=== PATIENT | female | born 1975 | race Two or more races ===

== ENCOUNTER 2017-04-25 18:52 | Inpatient (IN) | payer MEDICAID ==
[~2017-04-25] VITALS: Ht 160 cm; Wt 94.9 kg
[~2017-04-25 18:52] MED LIST: ALBUPOW26 XX; ARIP5TAB13 PO; CAR3125T PO; DOCU-94 PO; ESCI10TA PO; FURO40TA PO; GABA-497 PO; INSLANTI SC; INSLISPI SC; LEVO150T68 PO; LIS5T PO; LORA-205 PO; MET10LQ PO; NOR7.5T PO; OMEP20CA74 PO; POTA8TAB2 PO; PRAV20TA3 PO; TOPI50TA32 PO; WARF6TAB20 PO
[2017-04-25 19:42] LABS: Basophils # (auto) 0 uL; Basophils % (auto) 0.3 % (0.0-2.0); CONDITION Y; Eosinophils # (auto) 0.2 uL; Eosinophils % (auto) 3.3 % (0.0-7.0); Hematocrit 30.6 % (36.0-46.0); Hemoglobin 10.1 g/dL (12.2-16.2); Lymphocytes % (auto) 37.1 % (10.0-50.0); Mean Corpuscular Volume 93.7 fL (80.0-100.0); Mean Platelet Volume 9.8 fL (7.4-10.4); Monocytes # (auto) 0.4 uL; Neutrophils # (auto) 2.8 uL; Neutrophils % (auto) 52.3 % (37.0-80.0); Platelet Count (auto) 221 10^3/uL (140-450); Red Cell Distribution Width 14.5 % (11.6-16.0); White Blood Cell 5.4 10^3/uL (4.4-10.8)
[2017-04-25 20:06] LABS: Albumin 3.1 g/dL (3.4-5.0); Calcium 7.9 mg/dL (8.5-10.1); Magnesium 2.5 mg/dL (1.6-2.6); Potassium 3.9 mmol/L (3.5-5.1)
[2017-04-25 20:09] LABS: BUN/Creatinine Ratio 21.2
[2017-04-25 20:11] LABS: Bilirubin, Total 0.4 mg/dL (0.2-1.0); Total Protein 7.2 g/dL (6.4-8.2)
[2017-04-25] MEDS ORDERED: SODIUM CHLORIDE 0.9% 1,000 ML IV ONE (20:23)
[2017-04-25] MEDS ORDERED: ONDANSETRON HCL 4 MG/2 ML VIAL IV ONE (20:30)
[2017-04-25] MEDS ORDERED: CLINDAMYCIN 900MG IV 50 ML IV ONE (20:30)
[2017-04-25] MEDS ORDERED: ASPirin 81 mg TAB PO ONE (20:30)
[2017-04-25] MEDS ORDERED: LORazepam 2MG/ML-1ML VIAL IV ONE (20:30)
[2017-04-25 20:59] LABS: INR 0.95 (0.9-1.15); Prothrombin Time 10.4 sec (9.37-12.3)
[2017-04-25 21:15] LABS: B-Type Natriuretic Peptide 703.49 pg/mL (0-100)
[2017-04-25 21:19] LABS: Temperature: 23.9 C (20.0-25.0)
[2017-04-25] MEDS ORDERED: VANCOMYCIN 1GM/250ML D5W 250 ML IV ONE (21:45)
[2017-04-25] MEDS ORDERED: NITROGLYCERIN 0.2MG/HR TOPICAL PATCH TD ONE (22:00)
[2017-04-25] MEDS ORDERED: NITROGLYCERIN 0.4 MG SL TAB SL PRN (23:45)
[2017-04-25] MEDS ORDERED: MORPHINE SULF INJ 2 MG/ML SYRINGE 1ML IV PRN (23:45)
[2017-04-25] MEDS ORDERED: ACETAMINOPHEN 325 MG TAB PO PRN (23:45)
[2017-04-25] MEDS ORDERED: TOPIRAMATE 25 MG TAB PO ONE (23:45)
[2017-04-26] VITALS (7 sets, daily range): BP systolic 93–138; BP diastolic 52–75
[2017-04-26] MEDS: ACCU-CHEK COMFORT CURVE STRIP VI SCH ×5 (00:48→23:43)
[2017-04-26] MEDS: InsuLIN REG 1unit/0.01ml Soln (100units/ml) SC SCH ×5 (00:53→23:43)
[2017-04-26] MEDS: TEMAZEPAM 15 MG CAP PO PRN (01:48)
[2017-04-26] MEDS: HYDROcodone-ACET 5/325MG TAB PO PRN ×3 (02:03→17:35)
[2017-04-26] MEDS ORDERED: COLC1TAB3 PO (04:11)
[2017-04-26] MEDS ORDERED: CLOP75TA41 PO (04:11)
[2017-04-26] MEDS ORDERED: SILD50TA42 PO (04:11)
[2017-04-26] MEDS ORDERED: METO5TAB56 PO (04:11)
[2017-04-26] MEDS ORDERED: ALL100T PO (04:11)
[2017-04-26] MEDS ORDERED: KEP500T PO (04:11)
[2017-04-26] MEDS ORDERED: FLUT100M IN (04:11)
[2017-04-26] MEDS ORDERED: TRAZ150T79 PO (04:11)
[2017-04-26] MEDS ORDERED: ATOR20TA PO (04:11)
[2017-04-26 05:59] LABS: Basophils # (auto) 0 uL; Basophils % (auto) 0.5 % (0.0-2.0); CONDITION Y; Eosinophils # (auto) 0.3 uL; Eosinophils % (auto) 4.6 % (0.0-7.0); Hematocrit 28.9 % (36.0-46.0); Hemoglobin 9.5 g/dL (12.2-16.2); Lymphocytes # (auto) 2.3 uL; Lymphocytes % (auto) 39.4 % (10.0-50.0); Mean Corpuscular Hemoglobin 31.1 pg (28.0-32.0); Mean Corpuscular Volume 94.3 fL (80.0-100.0); Mean Platelet Volume 9.5 fL (7.4-10.4); Monocytes # (auto) 0.5 uL; Monocytes % (auto) 9.4 % (0.0-12.0); Neutrophils # (auto) 2.7 uL; Neutrophils % (auto) 46.1 % (37.0-80.0); Platelet Count (auto) 207 10^3/uL (140-450); Red Cell Distribution Width 14.6 % (11.6-16.0); White Blood Cell 5.8 10^3/uL (4.4-10.8)
[2017-04-26 06:08] LABS: Albumin 2.8 g/dL (3.4-5.0); Calcium 8.1 mg/dL (8.5-10.1); Potassium 3.2 mmol/L (3.5-5.1)
[2017-04-26 06:11] LABS: BUN/Creatinine Ratio 16.4
[2017-04-26 06:13] LABS: Bilirubin, Total 0.4 mg/dL (0.2-1.0); Total Protein 6.5 g/dL (6.4-8.2)
[2017-04-26] MEDS: LEVOTHYROXINE SODIUM 50 MCG TAB PO SCH (06:25)
[2017-04-26] MEDS: GABAPENTIN 300 MG CAP PO SCH ×3 (06:26→22:13)
[2017-04-26] MEDS: DEXTROSE (50%) 50ML SYRG IV PRN (06:35)
[2017-04-26] MEDS: FUROSEMIDE 40 MG TAB PO SCH (09:13)
[2017-04-26] MEDS: CARVEDILOL 3.125 MG TAB PO SCH ×2 (09:13→22:00)
[2017-04-26] MEDS: ASPirin 81 mg TAB PO SCH (09:13)
[2017-04-26] MEDS: ENOXAPARIN SOD 40 MG/0.4 ML SYRINGE SC SCH (09:14)
[2017-04-26] MEDS: LISINOPRIL 5 MG TAB PO SCH (09:14)
[2017-04-26] MEDS: TOPIRAMATE 25 MG TAB PO SCH ×2 (09:14→22:13)
[2017-04-26] MEDS: FAMOTIDINE 20 MG TAB PO SCH ×2 (09:14→22:13)
[2017-04-26] MEDS: VANCOMYCIN 1,250 MG in D5W 5% 250 ML IV SCH ×2 (09:30→21:26)
[2017-04-26] MEDS ORDERED: VANCOMYCIN PER PHARMACY 0 MG IV SCH (10:00)
[2017-04-26] MEDS ORDERED: POTASSIUM CHL 20 Meq TABLET PO ONE (11:45)
[2017-04-26] MEDS ORDERED: LIDOCAINE W/ EPINEPHRINE 2% INJ 20ML VIAL IJ ONE (14:00)
[2017-04-26] MEDS: PRAVASTATIN SODIUM 20 MG TAB PO SCH (22:13)
[2017-04-27] MEDS: HYDROcodone-ACET 5/325MG TAB PO PRN ×4 (04:50→21:31)
[2017-04-27 05:00] VITALS: BP 114/63
[2017-04-27] MEDS: InsuLIN REG 1unit/0.01ml Soln (100units/ml) SC SCH ×3 (06:00→17:27)
[2017-04-27 06:21] LABS: Basophils # (auto) 0 uL; Basophils % (auto) 0.6 % (0.0-2.0); CONDITION Y; Eosinophils # (auto) 0.3 uL; Eosinophils % (auto) 6.2 % (0.0-7.0); Hemoglobin 10.1 g/dL (12.2-16.2); Lymphocytes % (auto) 39.8 % (10.0-50.0); Mean Corpuscular Hemoglobin 30.9 pg (28.0-32.0); Mean Corpuscular Hgb Conc. 32.7 g/dL (32.0-36.0); Mean Corpuscular Volume 94.7 fL (80.0-100.0); Mean Platelet Volume 9.5 fL (7.4-10.4); Monocytes # (auto) 0.4 uL; Monocytes % (auto) 7.8 % (0.0-12.0); Neutrophils # (auto) 2.2 uL; Neutrophils % (auto) 45.6 % (37.0-80.0); Platelet Count (auto) 197 10^3/uL (140-450); Red Cell Distribution Width 14.4 % (11.6-16.0); White Blood Cell 4.9 10^3/uL (4.4-10.8)
[2017-04-27] MEDS: ACCU-CHEK COMFORT CURVE STRIP VI SCH ×4 (06:24→23:58)
[2017-04-27] MEDS: GABAPENTIN 300 MG CAP PO SCH ×3 (06:24→21:31)
[2017-04-27] MEDS: LEVOTHYROXINE SODIUM 50 MCG TAB PO SCH (06:25)
[2017-04-27 06:28] LABS: INR 0.95 (0.9-1.15); Prothrombin Time 10.4 sec (9.37-12.3)
[2017-04-27 06:33] LABS: BUN/Creatinine Ratio 17.3; Calcium 8.5 mg/dL (8.5-10.1); Magnesium 2.5 mg/dL (1.6-2.6); Phosphorus 3.3 mg/dL (2.5-4.90); Potassium 3.8 mmol/L (3.5-5.1)
[2017-04-27 08:00] VITALS: BP 140/59
[2017-04-27] MEDS: VANCOMYCIN 1,250 MG in D5W 5% 250 ML IV SCH ×2 (09:40→21:00)
[2017-04-27] MEDS: FAMOTIDINE 20 MG TAB PO SCH ×2 (09:41→21:31)
[2017-04-27] MEDS: LISINOPRIL 5 MG TAB PO SCH (09:41)
[2017-04-27] MEDS: CARVEDILOL 3.125 MG TAB PO SCH ×2 (09:41→21:36)
[2017-04-27] MEDS: TOPIRAMATE 25 MG TAB PO SCH ×2 (09:41→21:31)
[2017-04-27] MEDS: FUROSEMIDE 40 MG TAB PO SCH (09:41)
[2017-04-27] MEDS: ASPirin 81 mg TAB PO SCH (09:41)
[2017-04-27] MEDS: ENOXAPARIN SOD 40 MG/0.4 ML SYRINGE SC SCH (09:42)
[2017-04-27 09:46] VITALS: BP 110/56
[2017-04-27] MEDS ORDERED: MORPHINE SULFATE 4 MG/ML SYRG IV ONE (11:30)
[2017-04-27 13:00] VITALS: BP 154/74
[2017-04-27] MEDS ORDERED: WARFARIN SODIUM 10 MG TAB PO ONE (17:00)
[2017-04-27 17:42] VITALS: BP 116/72
[2017-04-27] MEDS: PRAVASTATIN SODIUM 20 MG TAB PO SCH (21:31)
[2017-04-27 21:49] VITALS: BP 109/59
[2017-04-28] MEDS: InsuLIN REG 1unit/0.01ml Soln (100units/ml) SC SCH ×5 (00:09→20:00)
[2017-04-28] MEDS ORDERED: KETOROLAC TROMETH 30 MG/ML 1ML VIAL IV PRN (00:30)
[2017-04-28] MEDS: KETOROLAC TROMETH 30 MG/ML 1ML VIAL IV PRN ×4 (00:52→20:55)
[2017-04-28] MEDS ORDERED: KETOROLAC TROMETH 30 MG/ML 1ML VIAL ONE (00:52)
[2017-04-28 04:38] VITALS: BP 138/83
[2017-04-28] MEDS: ACCU-CHEK COMFORT CURVE STRIP VI SCH ×4 (05:44→20:00)
[2017-04-28] MEDS: GABAPENTIN 300 MG CAP PO SCH ×3 (06:24→20:55)
[2017-04-28 06:25] LABS: Basophils # (auto) 0 uL; Basophils % (auto) 0.5 % (0.0-2.0); CONDITION Y; Eosinophils # (auto) 0.3 uL; Eosinophils % (auto) 4.4 % (0.0-7.0); Hematocrit 30.5 % (36.0-46.0); Lymphocytes # (auto) 1.9 uL; Lymphocytes % (auto) 29.9 % (10.0-50.0); Mean Corpuscular Hgb Conc. 32.9 g/dL (32.0-36.0); Mean Corpuscular Volume 94.3 fL (80.0-100.0); Monocytes # (auto) 0.4 uL; Neutrophils # (auto) 3.7 uL; Neutrophils % (auto) 58.2 % (37.0-80.0); Platelet Count (auto) 207 10^3/uL (140-450); Red Cell Distribution Width 14.7 % (11.6-16.0); White Blood Cell 6.4 10^3/uL (4.4-10.8)
[2017-04-28] MEDS: LEVOTHYROXINE SODIUM 50 MCG TAB PO SCH (06:25)
[2017-04-28 06:32] LABS: INR 0.97 (0.9-1.15); Partial Thromboplastin Time 28.2 sec (22.64-33.71); Prothrombin Time 10.6 sec (9.37-12.3)
[2017-04-28 07:06] LABS: BUN/Creatinine Ratio 15.9; Calcium 8.7 mg/dL (8.5-10.1); Magnesium 2.5 mg/dL (1.6-2.6); Potassium 3.9 mmol/L (3.5-5.1)
[2017-04-28 08:49] VITALS: BP 132/80
[2017-04-28] MEDS: ENOXAPARIN SOD 40 MG/0.4 ML SYRINGE SC SCH (09:36)
[2017-04-28] MEDS: TOPIRAMATE 25 MG TAB PO SCH ×2 (09:37→20:56)
[2017-04-28] MEDS: ASPirin 81 mg TAB PO SCH (09:37)
[2017-04-28] MEDS: LISINOPRIL 5 MG TAB PO SCH (09:38)
[2017-04-28] MEDS: FUROSEMIDE 40 MG TAB PO SCH (09:38)
[2017-04-28] MEDS: FAMOTIDINE 20 MG TAB PO SCH ×2 (09:38→20:56)
[2017-04-28] MEDS: CARVEDILOL 3.125 MG TAB PO SCH ×2 (09:38→20:57)
[2017-04-28] MEDS: DEXTROSE (50%) 50ML SYRG IV PRN (11:50)
[2017-04-28 13:00] VITALS: BP 126/73
[2017-04-28] MEDS: HYDROcodone-ACET 5/325MG TAB PO PRN (16:05)
[2017-04-28 16:31] VITALS: BP 105/55
[2017-04-28] MEDS ORDERED: WARFARIN SODIUM 10 MG TAB PO ONE (17:00)
[2017-04-28] MEDS ORDERED: InsuLIN REG 1unit/0.01ml Soln (100units/ml) IV ONE (18:45)
[2017-04-28] MEDS ORDERED: DEXTROSE (50%) 50ML SYRG IV PRN (18:45)
[2017-04-28] MEDS: PRAVASTATIN SODIUM 20 MG TAB PO SCH (20:56)
[2017-04-28 21:17] VITALS: BP 138/75
[2017-04-29] MEDS: ACCU-CHEK COMFORT CURVE STRIP VI SCH ×6 (00:14→20:12)
[2017-04-29] MEDS: TEMAZEPAM 15 MG CAP PO PRN (00:37)
[2017-04-29] MEDS: ONDANSETRON HCL 4 MG/2 ML VIAL IV PRN ×5 (00:37→21:51)
[2017-04-29] MEDS: InsuLIN REG 1unit/0.01ml Soln (100units/ml) SC SCH ×6 (04:30→20:09)
[2017-04-29] MEDS: DEXTROSE (50%) 50ML SYRG IV PRN (04:30)
[2017-04-29 05:05] VITALS: BP 130/66
[2017-04-29] MEDS ORDERED: DEXTROSE (50%) 50ML SYRG IV PRN (06:00)
[2017-04-29 06:27] LABS: INR 1.17 (0.9-1.15); Partial Thromboplastin Time 24.5 sec (22.64-33.71); Prothrombin Time 12.8 sec (9.37-12.3)
[2017-04-29] MEDS: KETOROLAC TROMETH 30 MG/ML 1ML VIAL IV PRN ×3 (06:27→18:35)
[2017-04-29] MEDS: GABAPENTIN 300 MG CAP PO SCH ×3 (06:27→21:43)
[2017-04-29] MEDS: LEVOTHYROXINE SODIUM 50 MCG TAB PO SCH (06:54)
[2017-04-29 08:00] VITALS: BP 100/59
[2017-04-29] MEDS: LISINOPRIL 5 MG TAB PO SCH ×2 (10:00→12:56)
[2017-04-29] MEDS: CARVEDILOL 3.125 MG TAB PO SCH ×3 (10:00→21:44)
[2017-04-29] MEDS: ENOXAPARIN SOD 40 MG/0.4 ML SYRINGE SC SCH (10:02)
[2017-04-29] MEDS: FAMOTIDINE 20 MG TAB PO SCH ×2 (10:02→21:43)
[2017-04-29] MEDS: FUROSEMIDE 40 MG TAB PO SCH (10:02)
[2017-04-29] MEDS: TOPIRAMATE 25 MG TAB PO SCH ×2 (10:03→21:43)
[2017-04-29] MEDS: ASPirin 81 mg TAB PO SCH (10:03)
[2017-04-29 12:00] VITALS: BP 154/78
[2017-04-29 16:00] VITALS: BP 121/65
[2017-04-29] MEDS ORDERED: WARFARIN SODIUM 2.5 MG TAB PO ONE (17:00)
[2017-04-29 20:00] VITALS: BP 113/50
[2017-04-29] MEDS: HYDROcodone-ACET 10/325MG TAB PO PRN (20:12)
[2017-04-29] MEDS: PRAVASTATIN SODIUM 20 MG TAB PO SCH (21:43)
[2017-04-29 21:49] VITALS: BP 113/50
[2017-04-29] MEDS: LACTULOSE 20Gm/30ML SOLN PO SCH (21:56)
[2017-04-30] MEDS: KETOROLAC TROMETH 30 MG/ML 1ML VIAL IV PRN ×4 (00:40→20:50)
[2017-04-30] MEDS: InsuLIN REG 1unit/0.01ml Soln (100units/ml) SC SCH ×7 (00:41→23:39)
[2017-04-30] MEDS: HYDROcodone-ACET 10/325MG TAB PO PRN ×2 (02:45→15:55)
[2017-04-30] MEDS: ACCU-CHEK COMFORT CURVE STRIP VI SCH ×7 (03:39→23:37)
[2017-04-30 04:48] VITALS: BP 117/68
[2017-04-30 06:25] LABS: INR 2.03 (0.9-1.15); Partial Thromboplastin Time 33.9 sec (22.64-33.71)
[2017-04-30 06:30] LABS: Prothrombin Time 22.3 sec (9.37-12.3)
[2017-04-30 06:36] LABS: Albumin 2.9 g/dL (3.4-5.0); BUN/Creatinine Ratio 19.1; Calcium 8.6 mg/dL (8.5-10.1); Potassium 3.9 mmol/L (3.5-5.1)
[2017-04-30 06:38] LABS: Bilirubin, Total 0.3 mg/dL (0.2-1.0); Total Protein 6.7 g/dL (6.4-8.2)
[2017-04-30] MEDS: LEVOTHYROXINE SODIUM 50 MCG TAB PO SCH (06:39)
[2017-04-30] MEDS: GABAPENTIN 300 MG CAP PO SCH ×3 (06:40→21:12)
[2017-04-30] MEDS: LACTULOSE 20Gm/30ML SOLN PO SCH ×3 (06:41→21:06)
[2017-04-30 08:00] VITALS: BP 106/64
[2017-04-30] MEDS ORDERED: GIVE UN DILUTED IV ONE (09:00)
[2017-04-30] MEDS ORDERED: ADENOSINE IV ONE (09:00)
[2017-04-30] MEDS: ENOXAPARIN SOD 40 MG/0.4 ML SYRINGE SC SCH (09:11)
[2017-04-30] MEDS: ASPirin 81 mg TAB PO SCH (09:12)
[2017-04-30] MEDS: TOPIRAMATE 25 MG TAB PO SCH ×2 (09:12→21:13)
[2017-04-30] MEDS: FAMOTIDINE 20 MG TAB PO SCH ×2 (09:13→21:12)
[2017-04-30] MEDS: LISINOPRIL 5 MG TAB PO SCH (09:13)
[2017-04-30] MEDS: FUROSEMIDE 40 MG TAB PO SCH (09:14)
[2017-04-30] MEDS: CARVEDILOL 3.125 MG TAB PO SCH ×2 (09:14→21:14)
[2017-04-30 09:16] VITALS: BP 106/64
[2017-04-30] MEDS ORDERED: ADENOSINE 80 MG in GIVE UN-DILUTED 0 ML IV ONE ×2 (09:30→10:15)
[2017-04-30] MEDS ORDERED: ALBUTEROL SULF 2.5 MG/0.5ML(0.5%) NEB SOLN NEB ONE (10:15)
[2017-04-30] MEDS ORDERED: IPRATROPIUM BROM 0.5 MG/2.5ML INH SOL NEB ONE (10:15)
[2017-04-30] MEDS: ONDANSETRON HCL 4 MG/2 ML VIAL IV PRN ×2 (11:44→20:50)
[2017-04-30 13:00] VITALS: BP 110/85
[2017-04-30] MEDS ORDERED: WARFARIN SODIUM 2.5 MG TAB PO ONE (17:00)
[2017-04-30 17:22] VITALS: BP 137/74
[2017-04-30 20:00] VITALS: BP 113/57
[2017-04-30] MEDS: PRAVASTATIN SODIUM 20 MG TAB PO SCH (21:19)
[2017-04-30] MEDS ORDERED: VANCOMYCIN 1,250 MG in D5W 5% 250 ML IV SCH (22:00)
[2017-05-01] VITALS (8 sets, daily range): BP systolic 125–149; BP diastolic 68–99
[2017-05-01] MEDS: HYDROcodone-ACET 10/325MG TAB PO PRN ×5 (01:52→20:22)
[2017-05-01] MEDS: ONDANSETRON HCL 4 MG/2 ML VIAL IV PRN (02:07)
[2017-05-01] MEDS: InsuLIN REG 1unit/0.01ml Soln (100units/ml) SC SCH ×6 (04:00→23:25)
[2017-05-01] MEDS: ACCU-CHEK COMFORT CURVE STRIP VI SCH ×6 (04:25→23:25)
[2017-05-01] MEDS: LEVOTHYROXINE SODIUM 50 MCG TAB PO SCH (06:21)
[2017-05-01] MEDS: GABAPENTIN 300 MG CAP PO SCH ×3 (06:21→21:54)
[2017-05-01] MEDS: LACTULOSE 20Gm/30ML SOLN PO SCH ×3 (06:21→21:58)
[2017-05-01 06:53] LABS: INR 2.33 (0.9-1.15); Partial Thromboplastin Time 36.5 sec (22.64-33.71)
[2017-05-01 06:57] LABS: Prothrombin Time 25.6 sec (9.37-12.3)
[2017-05-01] MEDS: ENOXAPARIN SOD 40 MG/0.4 ML SYRINGE SC SCH (10:10)
[2017-05-01] MEDS: FAMOTIDINE 20 MG TAB PO SCH ×2 (10:10→21:54)
[2017-05-01] MEDS: ASPirin 81 mg TAB PO SCH (10:10)
[2017-05-01] MEDS: TOPIRAMATE 25 MG TAB PO SCH ×2 (10:11→21:56)
[2017-05-01] MEDS: CARVEDILOL 3.125 MG TAB PO SCH ×2 (10:11→21:55)
[2017-05-01] MEDS: LISINOPRIL 5 MG TAB PO SCH (10:12)
[2017-05-01] MEDS: FUROSEMIDE 40 MG TAB PO SCH (10:12)
[2017-05-01] MEDS ORDERED: WARFARIN SODIUM 2.5 MG TAB PO ONE (17:00)
[2017-05-01] MEDS: TEMAZEPAM 15 MG CAP PO PRN (21:54)
[2017-05-01] MEDS: PRAVASTATIN SODIUM 20 MG TAB PO SCH (21:57)
[2017-05-02] MEDS: InsuLIN REG 1unit/0.01ml Soln (100units/ml) SC SCH ×4 (03:49→18:53)
[2017-05-02] MEDS: ACCU-CHEK COMFORT CURVE STRIP VI SCH ×4 (03:49→17:34)
[2017-05-02 05:00] VITALS: BP 137/77
[2017-05-02] MEDS: LACTULOSE 20Gm/30ML SOLN PO SCH ×2 (06:23→13:11)
[2017-05-02] MEDS: LEVOTHYROXINE SODIUM 50 MCG TAB PO SCH (06:24)
[2017-05-02] MEDS: GABAPENTIN 300 MG CAP PO SCH ×2 (06:24→13:10)
[2017-05-02 07:34] LABS: INR 1.77 (0.9-1.15); Partial Thromboplastin Time 36.8 sec (22.64-33.71)
[2017-05-02 07:46] LABS: Prothrombin Time 19.4 sec (9.37-12.3)
[2017-05-02 08:00] VITALS: BP 116/79
[2017-05-02] MEDS: HYDROcodone-ACET 10/325MG TAB PO PRN ×3 (08:50→17:36)
[2017-05-02 09:05] VITALS: BP 116/79
[2017-05-02 09:43] LABS: INR 1.72 (0.9-1.15); Partial Thromboplastin Time 36.5 sec (22.64-33.71)
[2017-05-02 09:46] LABS: Prothrombin Time 18.8 sec (9.37-12.3)
[2017-05-02 09:54] LABS: Calcium 8.8 mg/dL (8.5-10.1); Potassium 4.8 mmol/L (3.5-5.1)
[2017-05-02 09:57] LABS: BUN/Creatinine Ratio 18.1
[2017-05-02] MEDS: LISINOPRIL 5 MG TAB PO SCH (10:00)
[2017-05-02] MEDS: CARVEDILOL 3.125 MG TAB PO SCH (10:00)
[2017-05-02] MEDS ORDERED: VANCOMYCIN 500 MG in D5W 5% 100 ML IV ONE (10:00)
[2017-05-02] MEDS ORDERED: DOXYCYCLINE 100 MG TAB/CAP PO SCH (10:00)
[2017-05-02] MEDS: FAMOTIDINE 20 MG TAB PO SCH (10:10)
[2017-05-02] MEDS: ASPirin 81 mg TAB PO SCH (10:11)
[2017-05-02] MEDS: FUROSEMIDE 40 MG TAB PO SCH (10:11)
[2017-05-02] MEDS: TOPIRAMATE 25 MG TAB PO SCH (10:12)
[2017-05-02 13:00] VITALS: BP 111/61
[2017-05-02] MEDS ORDERED: MORPHINE SULFATE 4 MG/ML SYRG IV PRN (14:06)
[2017-05-02 16:38] VITALS: BP 145/82
[2017-05-02 17:00] VITALS: BP 145/82
[2017-05-02] MEDS ORDERED: WARFARIN SODIUM 2 MG TAB PO ONE (17:00)
== END 2017-05-02 19:00 | DRG 190 ==
LOC: EDBD 18:52 → ER 18:58 → TELE 18:59 → TELE-EAST 04-26 01:10
PROVIDERS: ADMIT Nurse Practitioner; ATTEND Family Medicine
DX: I25.119 Atherosclerotic heart disease of native coronary artery with unspecified angina pectoris (principal); I21.4 Non-ST elevation (NSTEMI) myocardial infarction; I50.23 Acute on chronic systolic (congestive) heart failure; E11.22 Type 2 diabetes mellitus with diabetic chronic kidney disease; E11.649 Type 2 diabetes mellitus with hypoglycemia without coma; L02.415 Cutaneous abscess of right lower limb; E44.1 Mild protein-calorie malnutrition; E11.65 Type 2 diabetes mellitus with hyperglycemia; L03.115 Cellulitis of right lower limb; L03.116 Cellulitis of left lower limb; N18.3 Chronic kidney disease, stage 3 (moderate); I25.2 Old myocardial infarction; Z86.73 Personal history of transient ischemic attack (TIA), and cerebral infarction without residual deficits; Z68.34 Body mass index [BMI] 34.0-34.9, adult; E78.5 Hyperlipidemia, unspecified; I13.0 Hypertensive heart and chronic kidney disease with heart failure and stage 1 through stage 4 chronic kidney disease, or unspecified chronic kidney disease; I50.9 Heart failure, unspecified; J44.9 Chronic obstructive pulmonary disease, unspecified; S82.892A Other fracture of left lower leg, initial encounter for closed fracture; Z82.49 Family history of ischemic heart disease and other diseases of the circulatory system; Z82.5 Family history of asthma and other chronic lower respiratory diseases; Z83.3 Family history of diabetes mellitus; Z95.1 Presence of aortocoronary bypass graft; F32.9 Major depressive disorder, single episode, unspecified; Z88.1 Allergy status to other antibiotic agents; Z88.0 Allergy status to penicillin; Z88.8 Allergy status to other drugs, medicaments and biological substances; Z79.4 Long term (current) use of insulin; Z90.89 Acquired absence of other organs; Z71.89 Other specified counseling; Z80.9 Family history of malignant neoplasm, unspecified; Z82.61 Family history of arthritis; E87.6 Hypokalemia
CPT/HCPCS: 36415; 71010; 73610; 78452; 80048; 80053; 80202; 82962; 83036; 83735; 83880; 84100; 84443; 84484; 84702; 85025; 85610; 85730; 86141; 87040; 87205; 93005; 93017; 93306; 94761; 96365; 96375; A4565; J0153; J1815; J1885; J2405; J3490; J7060

== ENCOUNTER 2018-03-27 09:58 | Inpatient (IN) | payer MEDICAID ==
[~2018-03-27] VITALS: Ht 160 cm; Wt 89.9 kg
[~2018-03-27 09:58] MED LIST changes: +ALL100T PO; -ARIP5TAB13 PO; +ATOR20TA PO; +CLOP75TA41 PO; +COLC1TAB3 PO; -DOCU-94 PO; +FLUT100M IN; -GABA-497 PO; +GABA300C11 PO; +KEP500T PO; -LORA-205 PO; -MET10LQ PO; +METO5TAB56 PO; -OMEP20CA74 PO; -PRAV20TA3 PO; +SILD50TA42 PO; -TOPI50TA32 PO; +TRAZ150T79 PO; -WARF6TAB20 PO
[2018-03-27] MEDS ORDERED: SODIUM CHLORIDE 0.9% 1,000 ML IV ONE (10:48)
[2018-03-27] MEDS ORDERED: PROMETHAZINE HCL 25 MG/ML 1ML IV ONE (11:00)
[2018-03-27] MEDS ORDERED: KETOROLAC TROMETH 30 MG/ML 1ML VIAL IV ONE (11:00)
[2018-03-27 11:34] LABS: Basophils # (auto) 0 uL; Basophils % (auto) 0.5 % (0.0-2.0); Eosinophils # (auto) 0.3 uL; Eosinophils % (auto) 2.9 % (0.0-7.0); Hemoglobin 10.5 g/dL (12.2-16.2); Lymphocytes # (auto) 1.4 uL; Lymphocytes % (auto) 15.3 % (10.0-50.0); Mean Corpuscular Hemoglobin 30.8 pg (28.0-32.0); Mean Corpuscular Hgb Conc. 32.8 g/dL (32.0-36.0); Mean Corpuscular Volume 93.9 fL (80.0-100.0); Monocytes # (auto) 0.5 uL; Monocytes % (auto) 5.7 % (0.0-12.0); Neutrophils # (auto) 6.8 uL; Neutrophils % (auto) 75.6 % (37.0-80.0); Platelet Count (auto) 280 10^3/uL (140-450); Red Blood Cells 3.41 10^6/uL (4.0-5.20); Red Cell Distribution Width 16.4 % (11.8-14.3)
[2018-03-27 11:52] LABS: Albumin 3.8 g/dL (3.4-5.0); BUN/Creatinine Ratio 24.5; Bilirubin, Total 0.5 mg/dL (0.2-1.0); Calcium 9.3 mg/dL (8.5-10.1); Magnesium 2.5 mg/dL (1.6-2.6); Potassium 3.5 mmol/L (3.5-5.1)
[2018-03-27] MEDS ORDERED: KETOROLAC TROMETH 60MG/2ML VIAL IM ONE (12:15)
[2018-03-27] MEDS ORDERED: PROMETHAZINE HCL 25 MG/ML 1ML IM ONE (12:15)
[2018-03-27] MEDS ORDERED: SODIUM CHLORIDE 0.9% 1,000 ML IV SCH (13:06)
[2018-03-27] MEDS ORDERED: LORazepam 0.5 MG TAB PO PRN (13:15)
[2018-03-27] MEDS ORDERED: ACETAMINOPHEN 500 MG TAB PO PRN (13:15)
[2018-03-27] MEDS ORDERED: METOLAZONE 5 MG TAB PO SCH (13:15)
[2018-03-27] MEDS ORDERED: TEMAZEPAM 15 MG CAP PO PRN (13:15)
[2018-03-27] MEDS ORDERED: NITROGLYCERIN 0.4 MG SL TAB SL PRN (13:15)
[2018-03-27] MEDS ORDERED: MORPHINE SULFATE 8mg/ml INJ SDV IV PRN (13:15)
[2018-03-27] MEDS ORDERED: PROMETHAZINE HCL 25 MG/ML 1ML IV PRN (13:15)
[2018-03-27] MEDS: ALBUTEROL SULF 2.5 MG/0.5ML(0.5%) NEB SOLN NEB PRN ×2 (13:33→18:13)
[2018-03-27] MEDS ORDERED: LEVOFLOXACIN 500MG 100 ML IV ONE (13:45)
[2018-03-27 13:49] VITALS: BP 129/98
[2018-03-27] MEDS: SILDENAFIL CITRATE 20 MG TAB PO SCH ×2 (13:53→21:30)
[2018-03-27] MEDS: traZODone HCL 50 MG TAB PO SCH ×2 (13:53→17:45)
[2018-03-27] MEDS: GABAPENTIN 300 MG CAP PO SCH ×2 (14:16→21:30)
[2018-03-27] MEDS: MORPHINE SULFATE 8mg/ml INJ SDV IV PRN ×2 (14:59→20:12)
[2018-03-27] MEDS: ACCU-CHEK COMFORT CURVE STRIP VI SCH ×3 (16:00→23:48)
[2018-03-27] MEDS: InsuLIN REG 1unit/0.01ml Soln (100units/ml) SC SCH ×3 (16:00→23:49)
[2018-03-27] MEDS: ATORVASTATIN 20 MG TAB PO SCH (17:45)
[2018-03-27 18:12] LABS: Urine Bacteria FEW /hpf (None Seen); Urine Blood Negative /uL (Negative); Urine Mucus FEW (None Seen); Urine Specific Gravity 1.012 (1.001-1.035); Urine WBC 82 /hpf (0 - 5)
[2018-03-27] MEDS: BUDESONIDE (INHALATION) 0.5 MG/2 ML NEB NEB SCH (18:13)
[2018-03-27] MEDS: LEVETIRACETAM 500 MG TAB PO SCH (21:30)
[2018-03-27] MEDS: DEXTROSE (50%) 50ML SYRG IV PRN (21:43)
[2018-03-27 21:53] VITALS: BP 93/48
[2018-03-27] MEDS: CARVEDILOL 3.125 MG TAB PO SCH (22:00)
[2018-03-27] MEDS: INSULIN LANTUS (GLARGINE) 1 /0.01ml (100units/ml) SC SCH (22:00)
[2018-03-27] MEDS ORDERED: ALBUMIN 5% 250 ML IV ONE (22:45)
[2018-03-27 23:25] LABS: BUN/Creatinine Ratio 23.5; Bilirubin, Total 0.5 mg/dL (0.2-1.0); Calcium 8.2 mg/dL (8.5-10.1); Potassium 3.6 mmol/L (3.5-5.1); Total Protein 6.7 g/dL (6.4-8.2)
[2018-03-27 23:45] VITALS: BP 100/50
[2018-03-28] VITALS (38 sets, daily range): BP systolic 78–139; BP diastolic 35–74
[2018-03-28] MEDS ORDERED: ALBUMIN 5% 250 ML IV ONE (02:30)
[2018-03-28 03:13] LABS: Basophils # (auto) 0 uL; Eosinophils # (auto) 0.1 uL; Hematocrit 25.3 % (36.0-46.0); Hemoglobin 8.4 g/dL (12.2-16.2); Lymphocytes # (auto) 1.1 uL; Mean Corpuscular Hemoglobin 31.4 pg (28.0-32.0); Mean Corpuscular Hgb Conc. 33.3 g/dL (32.0-36.0); Monocytes # (auto) 0.4 uL; Neutrophils # (auto) 4.6 uL; Red Blood Cells 2.68 10^6/uL (4.0-5.20); White Blood Cell 6.2 10^3/uL (4.4-10.8)
[2018-03-28 03:14] LABS: Basophils % (auto) 0.5 % (0.0-2.0); Eosinophils % (auto) 1.4 % (0.0-7.0); Lymphocytes % (auto) 17.7 % (10.0-50.0); Mean Corpuscular Volume 94.3 fL (80.0-100.0); Monocytes % (auto) 6.2 % (0.0-12.0); Neutrophils % (auto) 74.2 % (37.0-80.0); Nucleated Red Blood Cells % 0.1 %; Platelet Count (auto) 198 10^3/uL (140-450); Red Cell Distribution Width 16.1 % (11.8-14.3)
[2018-03-28 03:26] LABS: Partial Thromboplastin Time 27.9 sec (23.78-33.04); Prothrombin Time 10.7 sec (9.27-12.13)
[2018-03-28 03:40] LABS: Albumin 2.8 g/dL (3.4-5.0); BUN/Creatinine Ratio 23.5; Calcium 8.5 mg/dL (8.5-10.1); Potassium 4.5 mmol/L (3.5-5.1)
[2018-03-28 03:43] LABS: Bilirubin, Total 0.7 mg/dL (0.2-1.0); Total Protein 6.5 g/dL (6.4-8.2)
[2018-03-28] MEDS: ACCU-CHEK COMFORT CURVE STRIP VI SCH ×5 (04:06→20:46)
[2018-03-28] MEDS: InsuLIN REG 1unit/0.01ml Soln (100units/ml) SC SCH ×3 (04:11→21:46)
[2018-03-28] MEDS: GABAPENTIN 300 MG CAP PO SCH ×3 (05:33→22:26)
[2018-03-28] MEDS: LEVOTHYROXINE SODIUM 100 MCG TAB PO SCH (05:34)
[2018-03-28] MEDS: BUDESONIDE (INHALATION) 0.5 MG/2 ML NEB NEB SCH ×2 (07:50→18:29)
[2018-03-28] MEDS: ALBUTEROL SULF 2.5 MG/0.5ML(0.5%) NEB SOLN NEB PRN (07:54)
[2018-03-28] MEDS ORDERED: LEVOFLOXACIN 500 MG TAB PO SCH (10:00)
[2018-03-28] MEDS ORDERED: FUROSEMIDE 40 MG TAB PO SCH (10:00)
[2018-03-28] MEDS ORDERED: POTASSIUM CHLORIDE 8 MEQ TAB PO SCH (10:00)
[2018-03-28] MEDS ORDERED: ENOXAPARIN SOD 40 MG/0.4 ML SYRINGE SC SCH (10:00)
[2018-03-28] MEDS: CARVEDILOL 3.125 MG TAB PO SCH (10:00)
[2018-03-28] MEDS ORDERED: LISINOPRIL 5 MG TAB PO SCH (10:00)
[2018-03-28] MEDS: CITALOPRAM HYDROBR 20 MG TAB PO SCH (10:40)
[2018-03-28] MEDS: LEVETIRACETAM 500 MG TAB PO SCH ×2 (10:41→22:26)
[2018-03-28] MEDS: SILDENAFIL CITRATE 20 MG TAB PO SCH (10:42)
[2018-03-28] MEDS: PANTOPRAZOLE 40 MG TAB PO SCH (10:42)
[2018-03-28] MEDS: ALLOPURINOL 100 MG TAB PO SCH (10:44)
[2018-03-28] MEDS ORDERED: SODIUM CHLORIDE 0.9% 500 ML IV ONE (11:15)
[2018-03-28] MEDS ORDERED: LEVOFLOXACIN 250MG 50 ML IV ONE (12:45)
[2018-03-28] MEDS ORDERED: VANCOMYCIN PER PHARMACY 0 MG IV SCH (12:45)
[2018-03-28 13:21] LABS: Hematocrit 27.3 % (36.0-46.0); Hemoglobin 8.9 g/dL (12.2-16.2)
[2018-03-28] MEDS ORDERED: SODIUM CHLORIDE 0.9 % NEB SOLN 3ML NEB ONE (14:37)
[2018-03-28] MEDS: VANCOMYCIN 1GM/250ML 250 ML IV SCH (14:55)
[2018-03-28] MEDS ORDERED: NOREPINEPHRINE 8 MG/250ML KIT 250 ML IV SCH (15:07)
[2018-03-28] MEDS ORDERED: ALBUMIN 25% 100 ML IV ONE (15:15)
[2018-03-28] MEDS: MORPHINE SULFATE 8mg/ml INJ SDV IV PRN (16:25)
[2018-03-28] MEDS: ALBUTEROL SULF 2.5 MG/0.5ML(0.5%) NEB SOLN NEB SCH (18:29)
[2018-03-28] MEDS: ATORVASTATIN 20 MG TAB PO SCH (19:50)
[2018-03-28] MEDS: HYDROcodone-ACET 5/325MG TAB PO PRN (20:03)
[2018-03-28] MEDS: INSULIN LANTUS (GLARGINE) 1 /0.01ml (100units/ml) SC SCH (21:48)
[2018-03-28] MEDS: traZODone HCL 50 MG TAB PO SCH ×2 (21:51→23:02)
[2018-03-28] MEDS: LACTULOSE 20Gm/30ML SOLN PO SCH (22:25)
[2018-03-29] VITALS (55 sets, daily range): BP systolic 83–109; BP diastolic 31–68
[2018-03-29] MEDS: ACCU-CHEK COMFORT CURVE STRIP VI SCH ×6 (00:02→23:24)
[2018-03-29] MEDS: InsuLIN REG 1unit/0.01ml Soln (100units/ml) SC SCH ×6 (00:05→22:00)
[2018-03-29] MEDS: MORPHINE SULFATE 8mg/ml INJ SDV IV PRN (00:11)
[2018-03-29] MEDS: ALBUTEROL SULF 2.5 MG/0.5ML(0.5%) NEB SOLN NEB SCH ×4 (00:20→19:45)
[2018-03-29 04:12] LABS: Albumin 3.1 g/dL (3.4-5.0); Basophils # (auto) 0 uL; Basophils % (auto) 0.9 % (0.0-2.0); Calcium 8.6 mg/dL (8.5-10.1); Eosinophils # (auto) 0.4 uL; Eosinophils % (auto) 8.7 % (0.0-7.0); Hematocrit 25.9 % (36.0-46.0); Hemoglobin 8.5 g/dL (12.2-16.2); Lymphocytes # (auto) 1.9 uL; Lymphocytes % (auto) 36.7 % (10.0-50.0); Mean Corpuscular Hemoglobin 31.1 pg (28.0-32.0); Mean Corpuscular Hgb Conc. 32.9 g/dL (32.0-36.0); Mean Corpuscular Volume 94.6 fL (80.0-100.0); Monocytes # (auto) 0.6 uL; Neutrophils # (auto) 2.1 uL; Neutrophils % (auto) 42.7 % (37.0-80.0); Platelet Count (auto) 176 10^3/uL (140-450); Potassium 3.3 mmol/L (3.5-5.1); Red Blood Cells 2.74 10^6/uL (4.0-5.20); Red Cell Distribution Width 15.8 % (11.8-14.3)
[2018-03-29 04:15] LABS: BUN/Creatinine Ratio 28.8; Bilirubin, Total 0.8 mg/dL (0.2-1.0); Total Protein 6.7 g/dL (6.4-8.2)
[2018-03-29] MEDS: DEXTROSE (50%) 50ML SYRG IV PRN (04:22)
[2018-03-29] MEDS: GABAPENTIN 300 MG CAP PO SCH ×3 (05:56→23:23)
[2018-03-29] MEDS: LEVOTHYROXINE SODIUM 100 MCG TAB PO SCH (06:00)
[2018-03-29] MEDS: BUDESONIDE (INHALATION) 0.5 MG/2 ML NEB NEB SCH ×2 (06:48→19:45)
[2018-03-29] MEDS: ALLOPURINOL 100 MG TAB PO SCH (10:26)
[2018-03-29] MEDS: CITALOPRAM HYDROBR 20 MG TAB PO SCH (10:26)
[2018-03-29] MEDS: COLCHICINE 0.6 MG TAB PO SCH (10:26)
[2018-03-29] MEDS: PANTOPRAZOLE 40 MG TAB PO SCH (10:26)
[2018-03-29] MEDS: LEVETIRACETAM 500 MG TAB PO SCH ×2 (10:26→23:22)
[2018-03-29] MEDS: LEVOFLOXACIN 250MG 50 ML IV SCH (10:26)
[2018-03-29] MEDS: LACTULOSE 20Gm/30ML SOLN PO SCH ×2 (10:27→23:22)
[2018-03-29] MEDS: HYDROcodone-ACET 5/325MG TAB PO PRN ×2 (10:27→16:19)
[2018-03-29] MEDS ORDERED: POTASSIUM CHL 20 Meq TABLET PO ONE (11:30)
[2018-03-29] MEDS ORDERED: DEXTROSE (50%) 50ML SYRG IV PRN (11:30)
[2018-03-29] MEDS: SODIUM CHLORIDE 0.9% 1,000 ML IV SCH ×2 (12:28→21:41)
[2018-03-29] MEDS ORDERED: NOREPINEPHRINE 8 MG/250ML KIT 250 ML IV ONE (13:52)
[2018-03-29] MEDS: VANCOMYCIN 1GM/250ML 250 ML IV SCH (14:27)
[2018-03-29] MEDS: guaiFENesin 200 MG/10 ML UD PO PRN (15:41)
[2018-03-29] MEDS: ATORVASTATIN 20 MG TAB PO SCH (17:39)
[2018-03-29] MEDS: traZODone HCL 50 MG TAB PO SCH (21:38)
[2018-03-29] MEDS: INSULIN LANTUS (GLARGINE) 1 /0.01ml (100units/ml) SC SCH (22:00)
[2018-03-30] MEDS: ALBUTEROL SULF 2.5 MG/0.5ML(0.5%) NEB SOLN NEB SCH ×4 (00:51→18:41)
[2018-03-30] MEDS: SODIUM CHLORIDE 0.9% 1,000 ML IV SCH ×3 (04:00→21:09)
[2018-03-30 05:00] VITALS: BP 123/68
[2018-03-30] MEDS: MORPHINE SULFATE 8mg/ml INJ SDV IV PRN ×3 (05:37→21:16)
[2018-03-30] MEDS: GABAPENTIN 300 MG CAP PO SCH ×3 (06:00→21:10)
[2018-03-30] MEDS: ACCU-CHEK COMFORT CURVE STRIP VI SCH ×4 (06:04→21:33)
[2018-03-30] MEDS: InsuLIN REG 1unit/0.01ml Soln (100units/ml) SC SCH ×4 (06:04→21:34)
[2018-03-30] MEDS: LEVOTHYROXINE SODIUM 100 MCG TAB PO SCH (06:08)
[2018-03-30 06:22] LABS: Basophils # (auto) 0.1 uL; Basophils % (auto) 0.9 % (0.0-2.0); Eosinophils # (auto) 0.4 uL; Eosinophils % (auto) 8.3 % (0.0-7.0); Hematocrit 27.2 % (36.0-46.0); Hemoglobin 9.1 g/dL (12.2-16.2); Lymphocytes # (auto) 1.6 uL; Lymphocytes % (auto) 29.9 % (10.0-50.0); Mean Corpuscular Hemoglobin 31.6 pg (28.0-32.0); Mean Corpuscular Hgb Conc. 33.4 g/dL (32.0-36.0); Mean Corpuscular Volume 94.8 fL (80.0-100.0); Monocytes # (auto) 0.3 uL; Monocytes % (auto) 5.8 % (0.0-12.0); Neutrophils % (auto) 55.1 % (37.0-80.0); Nucleated Red Blood Cells % 0.1 %; Platelet Count (auto) 202 10^3/uL (140-450); Red Blood Cells 2.87 10^6/uL (4.0-5.20); Red Cell Distribution Width 15.9 % (11.8-14.3); White Blood Cell 5.4 10^3/uL (4.4-10.8)
[2018-03-30 06:40] LABS: Albumin 3.2 g/dL (3.4-5.0); BUN/Creatinine Ratio 26.6; Bilirubin, Total 0.6 mg/dL (0.2-1.0); Calcium 8.8 mg/dL (8.5-10.1)
[2018-03-30] MEDS: BUDESONIDE (INHALATION) 0.5 MG/2 ML NEB NEB SCH ×2 (06:59→18:41)
[2018-03-30 08:53] VITALS: BP 110/61
[2018-03-30] MEDS ORDERED: ROPIVACAINE 0.5% (5MG/ML) 20ML AMPULE IJ ONE (09:49)
[2018-03-30] MEDS ORDERED: fentaNYL CITRATE 100 MCG/2 ML VL ONE (09:51)
[2018-03-30] MEDS ORDERED: PROPOFOL 10 MG/ML 20 ML IV ONE ×2 (09:51→10:55)
[2018-03-30] MEDS ORDERED: MIDAZOLAM HCL 1MG/1ML-2 ML VIAL ONE (09:51)
[2018-03-30] MEDS ORDERED: BUPIVACAINE 0.75% INJ 10ML MPV SDV IJ ONE (09:53)
[2018-03-30] MEDS ORDERED: BACITRACIN TOP OINT 1 UD PKG TOP ONE (09:53)
[2018-03-30] MEDS: LEVOFLOXACIN 250MG 50 ML IV SCH (10:00)
[2018-03-30] MEDS: CITALOPRAM HYDROBR 20 MG TAB PO SCH (10:00)
[2018-03-30] MEDS: LACTULOSE 20Gm/30ML SOLN PO SCH ×2 (10:00→21:09)
[2018-03-30] MEDS: ALLOPURINOL 100 MG TAB PO SCH (10:00)
[2018-03-30] MEDS: LEVETIRACETAM 500 MG TAB PO SCH ×2 (10:00→21:09)
[2018-03-30] MEDS: PANTOPRAZOLE 40 MG TAB PO SCH (10:00)
[2018-03-30] MEDS ORDERED: LEVOFLOXACIN 500MG 100 ML IV ONE (10:26)
[2018-03-30] MEDS ORDERED: ROCURONIUM 10MG/ML 10ML VIAL IV ONE (11:00)
[2018-03-30] MEDS ORDERED: ONDANSETRON HCL 4 MG/2 ML VIAL ONE (11:20)
[2018-03-30] MEDS ORDERED: NEOMYCIN-BACITRACIN-POLYM 15GM TOP OINT TOP ONE (11:26)
[2018-03-30] MEDS ORDERED: NEOSTIGMINE 1 MG/ML INJ (10mg/10ML VIAL) ONE (11:29)
[2018-03-30] MEDS ORDERED: GLYCOPYRROLATE 0.2 MG/ML 1ML VIAL ONE (11:29)
[2018-03-30] MEDS: HYDROmorphone HCL 2 MG/ML VL ONE ×2 (12:10→12:15)
[2018-03-30] MEDS: HYDROmorphone HCL 2 MG/ML VL IV PRN ×2 (12:20→12:25)
[2018-03-30 13:00] VITALS: BP 110/64
[2018-03-30 13:53] VITALS: BP 110/64
[2018-03-30] MEDS: VANCOMYCIN 1GM/250ML 250 ML IV SCH (14:20)
[2018-03-30] MEDS ORDERED: METHYLENE BLUE 0.5% 5MG/ML 10ml AMP IV ONE (15:50)
[2018-03-30 17:13] VITALS: BP 109/67
[2018-03-30] MEDS: ATORVASTATIN 20 MG TAB PO SCH (17:58)
[2018-03-30] MEDS: HYDROcodone-ACET 5/325MG TAB PO PRN (20:08)
[2018-03-30] MEDS: traZODone HCL 50 MG TAB PO SCH (21:08)
[2018-03-30] MEDS: INSULIN LANTUS (GLARGINE) 1 /0.01ml (100units/ml) SC SCH (21:34)
[2018-03-30 22:00] VITALS: BP 142/89
[2018-03-31] MEDS: MORPHINE SULFATE 8mg/ml INJ SDV IV PRN (01:24)
[2018-03-31] MEDS: guaiFENesin 200 MG/10 ML UD PO PRN (02:52)
[2018-03-31] MEDS: HYDROcodone-ACET 5/325MG TAB PO PRN ×2 (04:58→16:30)
[2018-03-31 05:00] VITALS: BP 128/72
[2018-03-31] MEDS: SODIUM CHLORIDE 0.9% 1,000 ML IV SCH ×3 (05:02→22:37)
[2018-03-31] MEDS: LEVOTHYROXINE SODIUM 100 MCG TAB PO SCH (06:32)
[2018-03-31] MEDS: GABAPENTIN 300 MG CAP PO SCH ×3 (06:32→22:38)
[2018-03-31] MEDS: BUDESONIDE (INHALATION) 0.5 MG/2 ML NEB NEB SCH ×3 (06:33→22:00)
[2018-03-31] MEDS: ALBUTEROL SULF 2.5 MG/0.5ML(0.5%) NEB SOLN NEB SCH ×5 (06:33→23:24)
[2018-03-31] MEDS: ACCU-CHEK COMFORT CURVE STRIP VI SCH ×4 (06:50→22:00)
[2018-03-31] MEDS: InsuLIN REG 1unit/0.01ml Soln (100units/ml) SC SCH ×4 (06:51→22:40)
[2018-03-31 08:24] VITALS: BP 120/57
[2018-03-31] MEDS: LEVOFLOXACIN 250MG 50 ML IV SCH (10:13)
[2018-03-31] MEDS: COLCHICINE 0.6 MG TAB PO SCH (10:14)
[2018-03-31] MEDS: LEVETIRACETAM 500 MG TAB PO SCH ×2 (10:14→22:38)
[2018-03-31] MEDS: CITALOPRAM HYDROBR 20 MG TAB PO SCH (10:14)
[2018-03-31] MEDS: PANTOPRAZOLE 40 MG TAB PO SCH (10:14)
[2018-03-31] MEDS: ALLOPURINOL 100 MG TAB PO SCH (10:14)
[2018-03-31] MEDS: LACTULOSE 20Gm/30ML SOLN PO SCH ×2 (11:38→22:37)
[2018-03-31 13:00] VITALS: BP 125/61
[2018-03-31] MEDS: VANCOMYCIN 1GM/250ML 250 ML IV SCH (14:22)
[2018-03-31 17:00] VITALS: BP 130/71
[2018-03-31] MEDS: ATORVASTATIN 20 MG TAB PO SCH (18:38)
[2018-03-31] MEDS: traZODone HCL 50 MG TAB PO SCH (20:00)
[2018-03-31 22:00] VITALS: BP 110/62
[2018-03-31] MEDS: INSULIN LANTUS (GLARGINE) 1 /0.01ml (100units/ml) SC SCH (22:39)
[2018-03-31] MEDS: ALBUTEROL SULF 2.5 MG/0.5ML(0.5%) NEB SOLN NEB PRN (23:22)
[2018-04-01 05:00] VITALS: BP 104/62
[2018-04-01] MEDS: GABAPENTIN 300 MG CAP PO SCH ×3 (06:11→21:27)
[2018-04-01 06:26] LABS: Basophils # (auto) 0 uL; Basophils % (auto) 0.8 % (0.0-2.0); Eosinophils # (auto) 0.2 uL; Eosinophils % (auto) 3.9 % (0.0-7.0); Hematocrit 27.4 % (36.0-46.0); Hemoglobin 9.3 g/dL (12.2-16.2); Lymphocytes # (auto) 1.7 uL; Lymphocytes % (auto) 28.9 % (10.0-50.0); Mean Corpuscular Hgb Conc. 33.9 g/dL (32.0-36.0); Mean Corpuscular Volume 94.4 fL (80.0-100.0); Monocytes # (auto) 0.5 uL; Monocytes % (auto) 8.4 % (0.0-12.0); Neutrophils # (auto) 3.3 uL; Platelet Count (auto) 162 10^3/uL (140-450); Red Cell Distribution Width 15.9 % (11.8-14.3); White Blood Cell 5.8 10^3/uL (4.4-10.8)
[2018-04-01] MEDS: ACCU-CHEK COMFORT CURVE STRIP VI SCH ×4 (06:39→22:17)
[2018-04-01] MEDS: LEVOTHYROXINE SODIUM 100 MCG TAB PO SCH (06:39)
[2018-04-01] MEDS: SODIUM CHLORIDE 0.9% 1,000 ML IV SCH ×2 (06:39→15:45)
[2018-04-01] MEDS: InsuLIN REG 1unit/0.01ml Soln (100units/ml) SC SCH ×4 (06:40→22:16)
[2018-04-01 06:43] LABS: BUN/Creatinine Ratio 21.6; Calcium 8.8 mg/dL (8.5-10.1); Potassium 3.4 mmol/L (3.5-5.1)
[2018-04-01] MEDS: BUDESONIDE (INHALATION) 0.5 MG/2 ML NEB NEB SCH ×2 (06:47→19:49)
[2018-04-01] MEDS: ALBUTEROL SULF 2.5 MG/0.5ML(0.5%) NEB SOLN NEB SCH ×2 (06:47→11:39)
[2018-04-01 09:00] VITALS: BP 96/58
[2018-04-01] MEDS: HYDROcodone-ACET 5/325MG TAB PO PRN ×2 (09:50→18:20)
[2018-04-01] MEDS: LACTULOSE 20Gm/30ML SOLN PO SCH ×2 (10:00→21:28)
[2018-04-01] MEDS: CITALOPRAM HYDROBR 20 MG TAB PO SCH (11:13)
[2018-04-01] MEDS: LEVOFLOXACIN 250MG 50 ML IV SCH (11:13)
[2018-04-01] MEDS: PANTOPRAZOLE 40 MG TAB PO SCH (11:14)
[2018-04-01] MEDS: ALLOPURINOL 100 MG TAB PO SCH (11:14)
[2018-04-01] MEDS: LEVETIRACETAM 500 MG TAB PO SCH ×2 (11:14→21:29)
[2018-04-01 13:00] VITALS: BP 107/65
[2018-04-01] MEDS: VANCOMYCIN 1GM/250ML 250 ML IV SCH (13:54)
[2018-04-01] MEDS ORDERED: DOCUSATE SOD 100 MG CAP PO SCH (15:15)
[2018-04-01] MEDS ORDERED: POTASSIUM CHL 20 Meq TABLET PO ONE (15:45)
[2018-04-01 16:50] VITALS: BP 133/76
[2018-04-01] MEDS: ATORVASTATIN 20 MG TAB PO SCH (17:54)
[2018-04-01] MEDS: ALBUTEROL SULF 2.5 MG/0.5ML(0.5%) NEB SOLN NEB PRN (19:49)
[2018-04-01] MEDS: traZODone HCL 50 MG TAB PO SCH (20:00)
[2018-04-01] MEDS: DOCUSATE SOD 100 MG CAP PO SCH (21:27)
[2018-04-01] MEDS: INSULIN LANTUS (GLARGINE) 1 /0.01ml (100units/ml) SC SCH (22:17)
[2018-04-02] MEDS: ALBUTEROL SULF 2.5 MG/0.5ML(0.5%) NEB SOLN NEB SCH ×4 (00:15→11:43)
[2018-04-02] MEDS: SODIUM CHLORIDE 0.9% 1,000 ML IV SCH ×2 (01:53→11:45)
[2018-04-02] MEDS: HYDROcodone-ACET 5/325MG TAB PO PRN ×2 (01:53→10:02)
[2018-04-02 05:34] VITALS: BP 133/70
[2018-04-02 06:25] LABS: Basophils # (auto) 0.1 uL; Basophils % (auto) 1.1 % (0.0-2.0); Eosinophils # (auto) 0.3 uL; Eosinophils % (auto) 5.6 % (0.0-7.0); Hematocrit 26.2 % (36.0-46.0); Hemoglobin 8.8 g/dL (12.2-16.2); Lymphocytes # (auto) 1.3 uL; Lymphocytes % (auto) 28.6 % (10.0-50.0); Mean Corpuscular Hemoglobin 31.4 pg (28.0-32.0); Mean Corpuscular Hgb Conc. 33.5 g/dL (32.0-36.0); Mean Corpuscular Volume 93.6 fL (80.0-100.0); Monocytes # (auto) 0.3 uL; Monocytes % (auto) 6.6 % (0.0-12.0); Neutrophils # (auto) 2.7 uL; Neutrophils % (auto) 58.1 % (37.0-80.0); Nucleated Red Blood Cells % 0.1 %; Platelet Count (auto) 170 10^3/uL (140-450); Red Cell Distribution Width 15.7 % (11.8-14.3); White Blood Cell 4.7 10^3/uL (4.4-10.8)
[2018-04-02] MEDS: ACCU-CHEK COMFORT CURVE STRIP VI SCH ×4 (06:28→22:12)
[2018-04-02] MEDS: BUDESONIDE (INHALATION) 0.5 MG/2 ML NEB NEB SCH ×2 (06:32→22:00)
[2018-04-02 06:46] LABS: BUN/Creatinine Ratio 17.3; Calcium 8.7 mg/dL (8.5-10.1); Potassium 3.5 mmol/L (3.5-5.1)
[2018-04-02] MEDS: InsuLIN REG 1unit/0.01ml Soln (100units/ml) SC SCH ×4 (06:55→22:13)
[2018-04-02] MEDS: GABAPENTIN 300 MG CAP PO SCH ×3 (06:55→22:12)
[2018-04-02] MEDS: LEVOTHYROXINE SODIUM 100 MCG TAB PO SCH (06:55)
[2018-04-02 09:00] VITALS: BP 132/83
[2018-04-02] MEDS: CITALOPRAM HYDROBR 20 MG TAB PO SCH (10:01)
[2018-04-02] MEDS: COLCHICINE 0.6 MG TAB PO SCH (10:01)
[2018-04-02] MEDS: ALLOPURINOL 100 MG TAB PO SCH (10:01)
[2018-04-02] MEDS: PANTOPRAZOLE 40 MG TAB PO SCH (10:01)
[2018-04-02] MEDS: LACTULOSE 20Gm/30ML SOLN PO SCH ×2 (10:01→22:12)
[2018-04-02] MEDS: DOCUSATE SOD 100 MG CAP PO SCH ×2 (10:01→22:11)
[2018-04-02] MEDS: LEVETIRACETAM 500 MG TAB PO SCH ×2 (10:04→22:12)
[2018-04-02 13:00] VITALS: BP 130/74
[2018-04-02 13:28] VITALS: BP 132/83
[2018-04-02] MEDS ORDERED: FLEET ENEMA(ADULT) 135 ML PR ONE (14:30)
[2018-04-02] MEDS: OXYCODONE W/ ACETAMINOPHEN 5/325MG TABLET PO PRN ×2 (15:15→20:13)
[2018-04-02 17:00] VITALS: BP 127/85
[2018-04-02] MEDS: ATORVASTATIN 20 MG TAB PO SCH (18:18)
[2018-04-02] MEDS: traZODone HCL 50 MG TAB PO SCH (20:12)
[2018-04-02 21:16] VITALS: BP 113/67
[2018-04-02] MEDS: INSULIN LANTUS (GLARGINE) 1 /0.01ml (100units/ml) SC SCH (22:13)
[2018-04-03] MEDS: OXYCODONE W/ ACETAMINOPHEN 5/325MG TABLET PO PRN ×3 (00:17→10:36)
[2018-04-03 05:27] VITALS: BP 127/78
[2018-04-03] MEDS: GABAPENTIN 300 MG CAP PO SCH ×3 (06:06→22:28)
[2018-04-03] MEDS: ACCU-CHEK COMFORT CURVE STRIP VI SCH ×4 (06:47→22:28)
[2018-04-03] MEDS: LEVOTHYROXINE SODIUM 100 MCG TAB PO SCH (06:47)
[2018-04-03] MEDS: InsuLIN REG 1unit/0.01ml Soln (100units/ml) SC SCH ×4 (06:47→22:00)
[2018-04-03 09:00] VITALS: BP 138/73
[2018-04-03] MEDS: ALLOPURINOL 100 MG TAB PO SCH (09:33)
[2018-04-03] MEDS: LACTULOSE 20Gm/30ML SOLN PO SCH ×2 (09:33→22:00)
[2018-04-03] MEDS: PANTOPRAZOLE 40 MG TAB PO SCH (09:34)
[2018-04-03] MEDS: DOCUSATE SOD 100 MG CAP PO SCH ×2 (09:34→22:27)
[2018-04-03] MEDS: CITALOPRAM HYDROBR 20 MG TAB PO SCH (09:34)
[2018-04-03] MEDS: LEVETIRACETAM 500 MG TAB PO SCH ×2 (09:35→22:27)
[2018-04-03] MEDS: BUDESONIDE (INHALATION) 0.5 MG/2 ML NEB NEB SCH (10:50)
[2018-04-03] MEDS ORDERED: ENOXAPARIN SOD 100 MG/1 ML SYRINGE SC ONE (12:00)
[2018-04-03 12:39] LABS: Hematocrit 26.8 % (36.0-46.0); Hemoglobin 8.8 g/dL (12.2-16.2)
[2018-04-03] MEDS: HYDROmorphone HCL 2 MG/ML VL IV PRN ×4 (12:45→22:26)
[2018-04-03 12:54] LABS: INR 1.05 (0.9-1.15); Partial Thromboplastin Time 25.2 sec (23.78-33.04); Prothrombin Time 11.2 sec (9.27-12.13)
[2018-04-03 13:00] VITALS: BP 118/68
[2018-04-03 13:03] LABS: Ferritin 103.5 ng/mL (10-322); Folate (Folic Acid) 18.43 ng/mL (5.38-24)
[2018-04-03 13:05] LABS: % Iron Saturation 7.3 % (15-50)
[2018-04-03] MEDS ORDERED: TEMAZEPAM 15 MG CAP PO PRN (15:00)
[2018-04-03] MEDS ORDERED: SODIUM FERR GLUC 62.5MG/5ML 125 MG in SODIUM CHL 0.9% 100 ML IV ONE (15:00)
[2018-04-03] MEDS ORDERED: LORazepam 0.5 MG TAB PO PRN (15:00)
[2018-04-03 17:00] VITALS: BP 123/77
[2018-04-03] MEDS: ATORVASTATIN 20 MG TAB PO SCH (18:02)
[2018-04-03] MEDS: traZODone HCL 50 MG TAB PO SCH (19:44)
[2018-04-03 22:00] VITALS: BP 123/71
[2018-04-03] MEDS: INSULIN LANTUS (GLARGINE) 1 /0.01ml (100units/ml) SC SCH (22:28)
[2018-04-03] MEDS: ENOXAPARIN SOD 100 MG/1 ML SYRINGE SC SCH (22:29)
[2018-04-04] MEDS: OXYCODONE W/ ACETAMINOPHEN 5/325MG TABLET PO PRN (00:44)
[2018-04-04] MEDS: HYDROmorphone HCL 2 MG/ML VL IV PRN ×3 (01:37→13:34)
[2018-04-04 05:01] VITALS: BP 116/77
[2018-04-04] MEDS: GABAPENTIN 300 MG CAP PO SCH ×2 (06:02→15:26)
[2018-04-04] MEDS: ACCU-CHEK COMFORT CURVE STRIP VI SCH ×3 (06:28→18:29)
[2018-04-04] MEDS: InsuLIN REG 1unit/0.01ml Soln (100units/ml) SC SCH ×3 (06:29→17:00)
[2018-04-04] MEDS: LEVOTHYROXINE SODIUM 100 MCG TAB PO SCH (06:29)
[2018-04-04 07:04] LABS: Basophils # (auto) 0.1 uL; Basophils % (auto) 1.3 % (0.0-2.0); Eosinophils # (auto) 0.4 uL; Eosinophils % (auto) 8.2 % (0.0-7.0); Hematocrit 27.6 % (36.0-46.0); Hemoglobin 9.1 g/dL (12.2-16.2); Lymphocytes # (auto) 2.1 uL; Lymphocytes % (auto) 39.6 % (10.0-50.0); Mean Corpuscular Hemoglobin 30.8 pg (28.0-32.0); Mean Corpuscular Hgb Conc. 32.9 g/dL (32.0-36.0); Mean Corpuscular Volume 93.5 fL (80.0-100.0); Monocytes # (auto) 0.3 uL; Monocytes % (auto) 6.3 % (0.0-12.0); Neutrophils # (auto) 2.4 uL; Neutrophils % (auto) 44.6 % (37.0-80.0); Nucleated Red Blood Cells % 0.1 %; Platelet Count (auto) 206 10^3/uL (140-450); Red Blood Cells 2.95 10^6/uL (4.0-5.20); Red Cell Distribution Width 15.5 % (11.8-14.3); White Blood Cell 5.4 10^3/uL (4.4-10.8)
[2018-04-04 09:00] VITALS: BP 140/77
[2018-04-04] MEDS: ENOXAPARIN SOD 100 MG/1 ML SYRINGE SC SCH (09:28)
[2018-04-04] MEDS: COLCHICINE 0.6 MG TAB PO SCH (09:28)
[2018-04-04] MEDS: LACTULOSE 20Gm/30ML SOLN PO SCH (09:28)
[2018-04-04] MEDS: CITALOPRAM HYDROBR 20 MG TAB PO SCH (09:30)
[2018-04-04] MEDS: ALLOPURINOL 100 MG TAB PO SCH (09:31)
[2018-04-04] MEDS: PANTOPRAZOLE 40 MG TAB PO SCH (09:31)
[2018-04-04] MEDS: DOCUSATE SOD 100 MG CAP PO SCH (09:32)
[2018-04-04] MEDS: LEVETIRACETAM 500 MG TAB PO SCH (09:33)
[2018-04-04] MEDS: BUDESONIDE (INHALATION) 0.5 MG/2 ML NEB NEB SCH (10:32)
[2018-04-04] MEDS ORDERED: SENNA 8.6 MG TAB PO ONE (10:45)
[2018-04-04] MEDS ORDERED: APIXABAN 5 MG TAB PO ONE (10:45)
[2018-04-04] MEDS ORDERED: SODIUM FERR GLUC 62.5MG/5ML 125 MG in SODIUM CHL 0.9% 100 ML IV SCH (12:00)
[2018-04-04 16:46] VITALS: BP 94/49
[2018-04-04] MEDS ORDERED: SENNA 8.6 MG TAB PO SCH (22:00)
[2018-04-04] MEDS ORDERED: SILDENAFIL CITRATE 20 MG TAB PO SCH (22:00)
[2018-04-04] MEDS ORDERED: APIXABAN 5 MG TAB PO SCH (22:00)
[2018-04-11] MEDS ORDERED: APIXABAN 5 MG TAB PO SCH (10:00)
== END 2018-04-04 17:27 | DRG 710 ==
LOC: ER 09:58 → EDUNIT# 09:58 → TELE 09:59 → TELE-EAST 14:35 → ICU WEST 03-28 15:53 → TELE-EAST 03-29 14:15 → EAST 04-02 15:07
PROVIDERS: ADMIT Internal Medicine; ATTEND Internal Medicine
PROC: 0SCG0ZZ Extirpation of Matter from Left Ankle Joint, Open Approach (ICD-10-PCS; 2018-03-30)
PROC: 0QSK04Z Reposition Left Fibula with Internal Fixation Device, Open Approach (ICD-10-PCS; principal; 2018-03-30 10:30)
DX: A41.9 Sepsis, unspecified organism (principal); I50.43 Acute on chronic combined systolic (congestive) and diastolic (congestive) heart failure; I42.9 Cardiomyopathy, unspecified; D68.69 Other thrombophilia; E11.21 Type 2 diabetes mellitus with diabetic nephropathy; N17.9 Acute kidney failure, unspecified; I82.432 Acute embolism and thrombosis of left popliteal vein; N18.3 Chronic kidney disease, stage 3 (moderate); M84.6 Pathological fracture in other disease; E66.01 Morbid (severe) obesity due to excess calories; I13.0 Hypertensive heart and chronic kidney disease with heart failure and stage 1 through stage 4 chronic kidney disease, or unspecified chronic kidney disease; I27.20 Pulmonary hypertension, unspecified; L03.115 Cellulitis of right lower limb; L03.116 Cellulitis of left lower limb; J44.9 Chronic obstructive pulmonary disease, unspecified; E11.22 Type 2 diabetes mellitus with diabetic chronic kidney disease; N39.0 Urinary tract infection, site not specified; D50.9 Iron deficiency anemia, unspecified; D63.8 Anemia in other chronic diseases classified elsewhere; E11.65 Type 2 diabetes mellitus with hyperglycemia; E78.5 Hyperlipidemia, unspecified; F32.9 Major depressive disorder, single episode, unspecified; F41.9 Anxiety disorder, unspecified; G40.909 Epilepsy, unspecified, not intractable, without status epilepticus; K59.00 Constipation, unspecified; M85.80 Other specified disorders of bone density and structure, unspecified site; S80.02XA Contusion of left knee, initial encounter; E03.9 Hypothyroidism, unspecified; J20.9 Acute bronchitis, unspecified; S90.02XA Contusion of left ankle, initial encounter; W01.0XXA Fall on same level from slipping, tripping and stumbling without subsequent striking against object, initial encounter; I25.10 Atherosclerotic heart disease of native coronary artery without angina pectoris; Z86.73 Personal history of transient ischemic attack (TIA), and cerebral infarction without residual deficits; Z79.4 Long term (current) use of insulin; Z80.8 Family history of malignant neoplasm of other organs or systems; Z82.49 Family history of ischemic heart disease and other diseases of the circulatory system; I25.2 Old myocardial infarction; Z82.5 Family history of asthma and other chronic lower respiratory diseases; Z83.3 Family history of diabetes mellitus; Z95.1 Presence of aortocoronary bypass graft; Z90.49 Acquired absence of other specified parts of digestive tract; Z88.0 Allergy status to penicillin; Z88.1 Allergy status to other antibiotic agents; Z88.2 Allergy status to sulfonamides; Y93.89 Activity, other specified; Y92.008 Other place in unspecified non-institutional (private) residence as the place of occurrence of the external cause; Y99.8 Other external cause status
CPT/HCPCS: 36415; 51702; 71045; 73562; 73600; 73610; 80048; 80053; 80202; 81001; 81025; 82565; 82607; 82728; 82746; 82962; 83036; 83540; 83550; 83605; 83735; 84443; 85014; 85018; 85025; 85610; 85730; 86850; 86870; 86900; 86901; 86902; 87040; 87081; 87086; 93005; 93306; 93970; 94640; 96372; 96374; 97110; 97116; 97163; 97530; J1815; J1885; J1956; J2250; J2270; J2405; J2704; J3490; P9047

== ENCOUNTER 2020-12-10 21:50 | Emergency (ER) | payer MEDICAID ==
[~2020-12-10] VITALS: Ht 160 cm; Wt 74.8 kg
[~2020-12-10 21:50] MED LIST changes: +ACET500T48 PO; -ALBUPOW26 XX; -ALL100T PO; +APIX5TAB PO; -ATOR20TA PO; +ATOR20TA50 PO; +CARV6.2551 PO; +CITA-77 PO; -CLOP75TA41 PO; -COLC1TAB3 PO; -ESCI10TA PO; -FLUT100M IN; -FURO40TA PO; +FURO40TA4 PO; -GABA300C11 PO; -INSLANTI SC; -INSLISPI SC; +INSU100I25 SC; +INSU1INJ19 SC; +LACT10SO3 PO; +LEV112T PO; -LEVO150T68 PO; -LIS5T PO; -METO5TAB56 PO; +NITR-87 PO; -NOR7.5T PO; +PANT40T PO; -POTA8TAB2 PO; -SILD50TA42 PO; +TOPI25TA84 PO; -TRAZ150T79 PO; +TRAZ50TA2 PO
[2020-12-11] MEDS ORDERED: SODIUM CHLORIDE 0.9% 1,000 ML IV ONE ×2 (04:15→12:00)
[2020-12-11 04:43] LABS: Basophils # (auto) 0 10 ^3/uL (0-0.2); Basophils % (auto) 0.3 % (0.0-2.0); Eosinophils # (auto) 0.2 10 ^3/uL (0-0.8); Eosinophils % (auto) 3.5 % (0.0-7.0); Hemoglobin 14.1 g/dL (12.2-16.2); Lymphocytes # (auto) 2.1 10 ^3/uL (0.4-5.4); Lymphocytes % (auto) 35.3 % (10.0-50.0); Mean Corpuscular Hemoglobin 30.8 pg (28.0-32.0); Mean Corpuscular Hgb Conc. 33.6 g/dL (32.0-36.0); Mean Corpuscular Volume 91.6 fL (80.0-100.0); Monocytes # (auto) 0.7 10 ^3/uL (0-1.3); Monocytes % (auto) 10.9 % (0.0-12.0); Nucleated Red Blood Cells % 0.1 %; Platelet Count (auto) 89 10^3/uL (140-450); Red Blood Cells 4.58 10^6/uL (4.0-5.20); White Blood Cell 6.1 10^3/uL (4.4-10.8)
[2020-12-11 05:22] LABS: Albumin 3.4 g/dL (3.4-5.0); BUN/Creatinine Ratio 30.4; Calcium 9.8 mg/dL (8.5-10.1); Potassium 3.5 mmol/L (3.5-5.1)
[2020-12-11 05:33] LABS: Bilirubin, Total 0.7 mg/dL (0.2-1.0); Total Protein 8.3 g/dL (6.4-8.2)
[2020-12-11 05:49] LABS: Urine Bacteria FEW /hpf (None Seen); Urine Blood 3+ /uL (Negative); Urine Budding Yeast MODERATE /hpf (None Seen); Urine Hyaline Cast MOD /lpf (0 - 2); Urine Mucus FEW (None Seen); Urine Specific Gravity 1.012 (1.001-1.035); Urine WBC 127 /hpf (0 - 5); Urine WBC Clumps PRESENT /hpf (None Seen)
[2020-12-11] MEDS ORDERED: TOPIRAMATE 25 MG TAB PO ONE (11:45)
[2020-12-11] MEDS ORDERED: HYDROcodone-ACET 5/325MG TAB PO ONE (11:45)
[2020-12-11] MEDS ORDERED: PANTOPRAZOLE 40 MG TAB PO ONE (11:45)
[2020-12-11] MEDS ORDERED: LEVOTHYROXINE SODIUM 112 MCG TAB PO ONE (11:45)
[2020-12-11] MEDS ORDERED: CITALOPRAM HYDROBR 20 MG TAB PO ONE (11:45)
[2020-12-11] MEDS ORDERED: CARVEDILOL 3.125 MG TAB PO ONE (11:45)
[2020-12-11] MEDS ORDERED: InsuLIN REG 1unit/0.01ml Soln (100units/ml) IV ONE (12:15)
[2020-12-11] MEDS ORDERED: INSULIN LANTUS (GLARGINE) 1 /0.01ml (100units/ml) SC SCH (12:45)
[2020-12-11 17:06] VITALS: BP 106/60
[2020-12-11] MEDS ORDERED: levETIRAcetam 500 MG TAB PO ONE (22:00)
[2020-12-11] MEDS ORDERED: APIXABAN 5 MG TAB PO SCH (22:00)
== END 2020-12-11 17:14 | disposition home or self-care (01) ==
LOC: ER 21:50 → EDBD 21:50 → ER 12-11 17:14
DX: N39.0 Urinary tract infection, site not specified (principal); E11.9 Type 2 diabetes mellitus without complications; I12.9 Hypertensive chronic kidney disease with stage 1 through stage 4 chronic kidney disease, or unspecified chronic kidney disease; I50.9 Heart failure, unspecified; N18.9 Chronic kidney disease, unspecified; E78.5 Hyperlipidemia, unspecified; Z90.49 Acquired absence of other specified parts of digestive tract; Z79.899 Other long term (current) drug therapy; Z87.891 Personal history of nicotine dependence
CPT/HCPCS: 36415; 80053; 81001; 82962; 83605; 83690; 85025; 87086; 96361; 96372; 96374

== ENCOUNTER 2021-07-14 21:08 | Emergency (ER) | payer MEDICAID ==
[~2021-07-14] VITALS: Ht 160 cm; Wt 90.7 kg
[~2021-07-14 21:08] MED LIST changes: +BUME2TAB5 PO; +CIPR500T4 PO; +CYCL10TA6 PO; +DOCU1CAP31 PO; +ESCI20TA PO; +HYDR1TAB97 PO; +LIDO5PAD8 EX; +LISI2.5T47 PO; +METO10TA7 PO; +NALD0.2T7 PO; -NITR-87 PO; +POTA10TA51 PO; +PREG100C PO
[2021-07-15] MEDS ORDERED: InsuLIN REG 1unit/0.01ml Soln (100units/ml) SC ONE (21:00)
[2021-07-15] MEDS ORDERED: levETIRAcetam 500 MG TAB PO ONE (21:00)
[2021-07-15] MEDS ORDERED: LEVOTHYROXINE SODIUM 112 MCG TAB PO ONE (21:00)
[2021-07-15] MEDS ORDERED: FUROSEMIDE 20 MG TAB PO ONE (21:00)
[2021-07-16 09:30] VITALS: BP 107/37
== END 2021-07-15 16:49 | disposition home or self-care (01) ==
LOC: EDBD 21:08 → ER 21:08
DX: S93.401A Sprain of unspecified ligament of right ankle, initial encounter (principal); E11.22 Type 2 diabetes mellitus with diabetic chronic kidney disease; I13.0 Hypertensive heart and chronic kidney disease with heart failure and stage 1 through stage 4 chronic kidney disease, or unspecified chronic kidney disease; N18.9 Chronic kidney disease, unspecified; I50.89 Other heart failure; J44.9 Chronic obstructive pulmonary disease, unspecified; E78.5 Hyperlipidemia, unspecified; Z86.73 Personal history of transient ischemic attack (TIA), and cerebral infarction without residual deficits; Z87.891 Personal history of nicotine dependence; Z88.0 Allergy status to penicillin; Z88.2 Allergy status to sulfonamides
CPT/HCPCS: 73590; 73610; 96372; 99284; J1815

== ENCOUNTER 2022-08-21 07:17 | Inpatient (IN) | payer MEDICAID ==
[2022-08-18 15:21] LABS: Basophils # (auto) 0.1 10 ^3/uL (0-0.2); Eosinophils # (auto) 0.5 10 ^3/uL (0-0.8); Eosinophils % (auto) 5.4 % (0.0-7.0); Hematocrit 36.7 % (36.0-46.0); Hemoglobin 12.1 g/dL (12.2-16.2); Lymphocytes % (auto) 22.7 % (10.0-50.0); Mean Corpuscular Hemoglobin 25.4 pg (28.0-32.0); Mean Corpuscular Hgb Conc. 32.9 g/dL (32.0-36.0); Mean Corpuscular Volume 77.3 fL (80.0-100.0); Monocytes # (auto) 0.7 10 ^3/uL (0-1.3); Monocytes % (auto) 8.1 % (0.0-12.0); Neutrophils # (auto) 5.5 10 ^3/uL (1.6-8.6); Neutrophils % (auto) 62.8 % (37.0-80.0); Red Blood Cells 4.75 10^6/uL (4.0-5.20); Urine Bacteria FEW /hpf (None Seen); Urine Blood 1+ /uL (Negative); Urine Hyaline Cast FEW /lpf (0 - 2); Urine Mucus FEW (None Seen); Urine Specific Gravity 1.014 (1.001-1.035); Urine WBC 150 /hpf (0 - 5); Urine WBC Clumps PRESENT /hpf (None Seen); White Blood Cell 8.7 10^3/uL (4.4-10.8)
[2022-08-18 15:22] LABS: Red Cell Distribution Width 21.4 % (11.8-14.3)
[2022-08-18 15:25] LABS: Albumin 3.4 g/dL (3.4-5.0); Calcium 9.2 mg/dL (8.5-10.1)
[2022-08-18 15:28] LABS: BUN/Creatinine Ratio 41.4; Bilirubin, Total 0.4 mg/dL (0.2-1.0); Total Protein 8.8 g/dL (6.4-8.2)
[2022-08-18 15:40] LABS: INR 0.93 (0.9-1.15); Partial Thromboplastin Time 25.4 sec (24.6-33.4)
[2022-08-18 15:47] LABS: Potassium 2.6 mmol/L (3.5-5.1)
[~2022-08-21] VITALS: Ht 160 cm; Wt 93.1 kg
[~2022-08-21 07:17] MED LIST changes: -CIPR500T4 PO; +CYCL-839 PO; -CYCL10TA6 PO; +DOCU1CAP22 PO; -DOCU1CAP31 PO; -FURO40TA4 PO; +RANO500T2 PO
[2022-08-21 09:24] LABS: BUN/Creatinine Ratio 42.9; Calcium 9.7 mg/dL (8.5-10.1)
[2022-08-21 09:32] LABS: Potassium 2.3 mmol/L (3.5-5.1)
[2022-08-21] MEDS ORDERED: POLYETHYLENE GLYCOL 17 GM PWDR PO PRN (11:00)
[2022-08-21] MEDS ORDERED: NITROGLYCERIN 0.4 MG SL TAB SL PRN (11:00)
[2022-08-21] MEDS ORDERED: DEXTROSE (50%) 50ML SYRG IV PRN (11:00)
[2022-08-21] MEDS ORDERED: ONDANSETRON HCL 4 MG/2 ML VIAL IV PRN (11:00)
[2022-08-21] MEDS ORDERED: MORPHINE SULFATE INJ 2 MG/ml SYRG IV PRN (11:00)
[2022-08-21] MEDS ORDERED: DOCUSATE SOD 100 MG CAP PO PRN (11:00)
[2022-08-21] MEDS ORDERED: POTASSIUM CHLORIDE 60 MEQ, LIDOCAINE 1% (LOCAL ANESTH.) 6 ML in SODIUM CHL 0.9% 500 ML IV ONE (11:00)
[2022-08-21] MEDS ORDERED: ACETAMINOPHEN 500 MG TAB PO PRN (11:00)
[2022-08-21] MEDS: SILDENAFIL CITRATE 20 MG TAB PO SCH ×2 (14:20→20:10)
[2022-08-21] MEDS: ACCU-CHEK COMFORT CURVE STRIP VI SCH ×3 (14:20→21:43)
[2022-08-21] MEDS: CYCLOBENZAPRINE HCL 10 MG TAB PO SCH ×2 (14:20→21:28)
[2022-08-21] MEDS: InsuLIN REG 1unit/0.01ml Soln (100units/ml) SC SCH ×3 (14:21→21:43)
[2022-08-21] MEDS: MORPHINE SULFATE INJ 2 MG/ml SYRG IV PRN ×2 (14:52→23:44)
[2022-08-21 16:37] VITALS: BP 130/67
[2022-08-21 16:41] VITALS: BP 130/67
[2022-08-21] MEDS: traZODone HCL 50 MG TAB PO SCH (17:48)
[2022-08-21] MEDS: HYDROcodone-ACET 5/325MG TAB PO PRN (20:11)
[2022-08-21] MEDS: ATORVASTATIN 20 MG TAB PO SCH (21:28)
[2022-08-21] MEDS: DOCUSATE SOD 100 MG CAP PO SCH (21:28)
[2022-08-21] MEDS: levETIRAcetam 500 MG TAB PO SCH (21:28)
[2022-08-21] MEDS: NITROFURANTOIN 100 mg CAP PO SCH (21:29)
[2022-08-21] MEDS: RANOLAZINE ER 500 MG TAB PO SCH (21:29)
[2022-08-21] MEDS: TOPIRAMATE 25 MG TAB PO SCH (21:29)
[2022-08-21] MEDS: ENOXAPARIN SOD 100 MG/1 ML SYRINGE SC SCH (21:29)
[2022-08-21 22:00] VITALS: BP 113/60
[2022-08-21] MEDS: CARVEDILOL 3.125 MG TAB PO SCH (22:04)
[2022-08-22] MEDS ORDERED: POTASSIUM CHL 20 Meq TABLET PO ONE (02:45)
[2022-08-22 05:00] VITALS: BP 138/65
[2022-08-22] MEDS: CYCLOBENZAPRINE HCL 10 MG TAB PO SCH ×3 (05:01→21:00)
[2022-08-22] MEDS: MORPHINE SULFATE INJ 2 MG/ml SYRG IV PRN (05:02)
[2022-08-22] MEDS: ACCU-CHEK COMFORT CURVE STRIP VI SCH ×4 (06:18→21:37)
[2022-08-22] MEDS: LEVOTHYROXINE SODIUM 112 MCG TAB PO SCH (06:18)
[2022-08-22] MEDS: InsuLIN REG 1unit/0.01ml Soln (100units/ml) SC SCH ×4 (06:20→21:36)
[2022-08-22 06:39] LABS: Albumin 3.3 g/dL (3.4-5.0); BUN/Creatinine Ratio 43.3; Calcium 8.7 mg/dL (8.5-10.1); Magnesium 2.5 mg/dL (1.6-2.6); Potassium 3.2 mmol/L (3.5-5.1)
[2022-08-22 06:42] LABS: Bilirubin, Total 0.7 mg/dL (0.2-1.0); Total Protein 7.8 g/dL (6.4-8.2)
[2022-08-22 06:46] LABS: Basophils # (auto) 0 10 ^3/uL (0-0.2); Basophils % (auto) 0.8 % (0.0-2.0); Eosinophils # (auto) 0.4 10 ^3/uL (0-0.8); Eosinophils % (auto) 6.8 % (0.0-7.0); Hematocrit 36.1 % (36.0-46.0); Hemoglobin 11.7 g/dL (12.2-16.2); Lymphocytes # (auto) 2.6 10 ^3/uL (0.4-5.4); Lymphocytes % (auto) 43.3 % (10.0-50.0); Mean Corpuscular Hemoglobin 25.9 pg (28.0-32.0); Mean Corpuscular Hgb Conc. 32.5 g/dL (32.0-36.0); Mean Corpuscular Volume 79.8 fL (80.0-100.0); Monocytes # (auto) 0.6 10 ^3/uL (0-1.3); Monocytes % (auto) 9.6 % (0.0-12.0); Neutrophils # (auto) 2.3 10 ^3/uL (1.6-8.6); Neutrophils % (auto) 39.5 % (37.0-80.0); Nucleated Red Blood Cells % 0.2 %; Red Blood Cells 4.53 10^6/uL (4.0-5.20); Red Cell Distribution Width 21.4 % (11.8-14.3); White Blood Cell 5.9 10^3/uL (4.4-10.8)
[2022-08-22 08:00] VITALS: BP_SYST 117; BP_SYST 140; BP_DIAS 57; BP_DIAS 67
[2022-08-22] MEDS: SILDENAFIL CITRATE 20 MG TAB PO SCH ×3 (08:27→20:59)
[2022-08-22] MEDS ORDERED: FUROSEMIDE 20 MG/2 ML VIAL IV ONE (08:45)
[2022-08-22] MEDS ORDERED: POTASSIUM EFFERVESENT TAB 25 MEQ PO ONE (08:45)
[2022-08-22] MEDS: HYDROcodone-ACET 5/325MG TAB PO PRN (09:18)
[2022-08-22] MEDS ORDERED: DEXTROSE (50%) 50ML SYRG IV PRN (09:45)
[2022-08-22] MEDS: CITALOPRAM HYDROBR 20 MG TAB PO SCH (09:49)
[2022-08-22] MEDS: DOCUSATE SOD 100 MG CAP PO SCH ×2 (09:49→21:00)
[2022-08-22] MEDS: levETIRAcetam 500 MG TAB PO SCH ×2 (09:50→21:00)
[2022-08-22] MEDS: CARVEDILOL 3.125 MG TAB PO SCH ×2 (09:50→21:36)
[2022-08-22] MEDS: NITROFURANTOIN 100 mg CAP PO SCH (09:50)
[2022-08-22] MEDS: PANTOPRAZOLE 40 MG TAB PO SCH (09:51)
[2022-08-22] MEDS: ENOXAPARIN SOD 100 MG/1 ML SYRINGE SC SCH ×2 (09:51→21:01)
[2022-08-22] MEDS: TOPIRAMATE 25 MG TAB PO SCH ×2 (09:51→21:01)
[2022-08-22] MEDS: RANOLAZINE ER 500 MG TAB PO SCH ×2 (09:51→21:01)
[2022-08-22] MEDS ORDERED: FUROSEMIDE 20 MG/2 ML VIAL IV SCH (10:00)
[2022-08-22 12:00] VITALS: BP 149/72
[2022-08-22] MEDS: diphenhdrAMINE HCL 25 MG CAP PO PRN ×2 (12:07→20:46)
[2022-08-22 16:00] VITALS: BP 110/60
[2022-08-22] MEDS ORDERED: cefTRIAXone 1GM/50ML D5W 50 ML IV ONE (17:00)
[2022-08-22] MEDS: traZODone HCL 50 MG TAB PO SCH (18:59)
[2022-08-22] MEDS: ATORVASTATIN 20 MG TAB PO SCH (21:00)
[2022-08-22 22:00] VITALS: BP 114/65
[2022-08-23 05:00] VITALS: BP 151/83
[2022-08-23 05:01] LABS: BUN/Creatinine Ratio 39.6; Magnesium 2.3 mg/dL (1.6-2.6); Potassium 3.6 mmol/L (3.5-5.1)
[2022-08-23] MEDS: CYCLOBENZAPRINE HCL 10 MG TAB PO SCH ×3 (06:24→22:07)
[2022-08-23] MEDS: LEVOTHYROXINE SODIUM 112 MCG TAB PO SCH (06:24)
[2022-08-23] MEDS: InsuLIN REG 1unit/0.01ml Soln (100units/ml) SC SCH ×4 (06:25→22:00)
[2022-08-23] MEDS: ACCU-CHEK COMFORT CURVE STRIP VI SCH ×4 (06:26→22:10)
[2022-08-23] MEDS: diphenhdrAMINE HCL 25 MG CAP PO PRN ×2 (06:28→22:05)
[2022-08-23 09:00] VITALS: BP 125/55
[2022-08-23] MEDS ORDERED: FLEET ENEMA(ADULT) 135 ML PR ONE (09:15)
[2022-08-23] MEDS: cefTRIAXone 1GM/50ML D5W 50 ML IV SCH (09:28)
[2022-08-23] MEDS: SILDENAFIL CITRATE 20 MG TAB PO SCH ×3 (09:28→20:25)
[2022-08-23] MEDS ORDERED: ENOXAPARIN SOD 100 MG/1 ML SYRINGE SC ONE (10:15)
[2022-08-23] MEDS: levETIRAcetam 500 MG TAB PO SCH ×2 (11:51→22:08)
[2022-08-23] MEDS: POTASSIUM EFFERVESENT TAB 25 MEQ PO SCH (11:51)
[2022-08-23] MEDS: BUMETANIDE 1 MG TAB PO SCH (11:56)
[2022-08-23] MEDS: PANTOPRAZOLE 40 MG TAB PO SCH (11:57)
[2022-08-23] MEDS: CARVEDILOL 3.125 MG TAB PO SCH ×2 (11:57→22:07)
[2022-08-23] MEDS: RANOLAZINE ER 500 MG TAB PO SCH ×2 (12:15→22:09)
[2022-08-23] MEDS: CITALOPRAM HYDROBR 20 MG TAB PO SCH (12:15)
[2022-08-23] MEDS: DOCUSATE SOD 100 MG CAP PO SCH ×2 (12:16→22:05)
[2022-08-23] MEDS: TOPIRAMATE 25 MG TAB PO SCH ×2 (12:16→22:09)
[2022-08-23 13:00] VITALS: BP 112/59
[2022-08-23 17:40] VITALS: BP 113/50
[2022-08-23] MEDS: traZODone HCL 50 MG TAB PO SCH (17:48)
[2022-08-23] MEDS: ATORVASTATIN 20 MG TAB PO SCH (22:09)
[2022-08-23 22:19] VITALS: BP 117/64
[2022-08-24 05:22] LABS: Basophils # (auto) 0.1 10 ^3/uL (0-0.2); Eosinophils # (auto) 0.2 10 ^3/uL (0-0.8); Hemoglobin 10.6 g/dL (12.2-16.2); Monocytes # (auto) 0.5 10 ^3/uL (0-1.3); Nucleated Red Blood Cells % 0.1 %
[2022-08-24 05:26] LABS: Basophils % (auto) 1.1 % (0.0-2.0); Hematocrit 32.4 % (36.0-46.0); Lymphocytes # (auto) 1.3 10 ^3/uL (0.4-5.4); Lymphocytes % (auto) 26.7 % (10.0-50.0); Mean Corpuscular Hemoglobin 26.1 pg (28.0-32.0); Mean Corpuscular Hgb Conc. 32.6 g/dL (32.0-36.0); Neutrophils % (auto) 59.2 % (37.0-80.0); Red Blood Cells 4.05 10^6/uL (4.0-5.20)
[2022-08-24 05:35] LABS: BUN/Creatinine Ratio 34.7; Calcium 9.1 mg/dL (8.5-10.1); Potassium 3.6 mmol/L (3.5-5.1)
[2022-08-24 05:52] LABS: Red Cell Distribution Width 21.6 % (11.8-14.3)
[2022-08-24 05:55] VITALS: BP 116/54
[2022-08-24] MEDS: InsuLIN REG 1unit/0.01ml Soln (100units/ml) SC SCH ×4 (06:03→23:17)
[2022-08-24] MEDS: CYCLOBENZAPRINE HCL 10 MG TAB PO SCH ×3 (06:08→23:14)
[2022-08-24] MEDS: LEVOTHYROXINE SODIUM 112 MCG TAB PO SCH (06:09)
[2022-08-24] MEDS: ACCU-CHEK COMFORT CURVE STRIP VI SCH ×3 (06:16→17:58)
[2022-08-24 08:00] VITALS: BP 107/65
[2022-08-24] MEDS: SILDENAFIL CITRATE 20 MG TAB PO SCH ×3 (08:51→19:36)
[2022-08-24] MEDS: cefTRIAXone 1GM/50ML D5W 50 ML IV SCH (08:55)
[2022-08-24] MEDS: BUMETANIDE 1 MG TAB PO SCH (10:49)
[2022-08-24] MEDS: PANTOPRAZOLE 40 MG TAB PO SCH (10:49)
[2022-08-24] MEDS: RANOLAZINE ER 500 MG TAB PO SCH ×2 (10:49→23:12)
[2022-08-24] MEDS: CITALOPRAM HYDROBR 20 MG TAB PO SCH (10:50)
[2022-08-24] MEDS: levETIRAcetam 500 MG TAB PO SCH ×2 (10:50→23:12)
[2022-08-24] MEDS: POTASSIUM EFFERVESENT TAB 25 MEQ PO SCH (10:50)
[2022-08-24] MEDS: DOCUSATE SOD 100 MG CAP PO SCH ×2 (10:50→23:15)
[2022-08-24] MEDS: CARVEDILOL 3.125 MG TAB PO SCH ×2 (10:50→23:17)
[2022-08-24] MEDS: TOPIRAMATE 25 MG TAB PO SCH ×2 (10:51→23:13)
[2022-08-24 12:00] VITALS: BP 122/65
[2022-08-24 16:00] VITALS: BP 126/64
[2022-08-24] MEDS: traZODone HCL 50 MG TAB PO SCH (17:55)
[2022-08-24 22:00] VITALS: BP 141/68
[2022-08-24] MEDS: ATORVASTATIN 20 MG TAB PO SCH (23:13)
[2022-08-24] MEDS: diphenhdrAMINE HCL 25 MG CAP PO PRN (23:14)
[2022-08-25 05:00] VITALS: BP 133/66
[2022-08-25] MEDS: ACCU-CHEK COMFORT CURVE STRIP VI SCH ×3 (06:08→11:48)
[2022-08-25] MEDS: CYCLOBENZAPRINE HCL 10 MG TAB PO SCH (06:16)
[2022-08-25] MEDS: InsuLIN REG 1unit/0.01ml Soln (100units/ml) SC SCH ×2 (06:17→12:18)
[2022-08-25] MEDS: LEVOTHYROXINE SODIUM 112 MCG TAB PO SCH (06:27)
[2022-08-25 08:00] VITALS: BP 134/68
[2022-08-25] MEDS: DOCUSATE SOD 100 MG CAP PO SCH (08:50)
[2022-08-25] MEDS: cefTRIAXone 1GM/50ML D5W 50 ML IV SCH (08:50)
[2022-08-25] MEDS: CARVEDILOL 3.125 MG TAB PO SCH (08:50)
[2022-08-25] MEDS: levETIRAcetam 500 MG TAB PO SCH (08:52)
[2022-08-25] MEDS: BUMETANIDE 1 MG TAB PO SCH (08:52)
[2022-08-25] MEDS: PANTOPRAZOLE 40 MG TAB PO SCH (08:53)
[2022-08-25] MEDS: SILDENAFIL CITRATE 20 MG TAB PO SCH (08:53)
[2022-08-25] MEDS: RANOLAZINE ER 500 MG TAB PO SCH (08:53)
[2022-08-25] MEDS: CITALOPRAM HYDROBR 20 MG TAB PO SCH (08:53)
[2022-08-25] MEDS: POTASSIUM EFFERVESENT TAB 25 MEQ PO SCH (08:54)
[2022-08-25] MEDS ORDERED: INSULIN LANTUS (GLARGINE) 1 /0.01ml (100units/ml) SC SCH (10:00)
[2022-08-25] MEDS: TOPIRAMATE 25 MG TAB PO SCH (10:20)
[2022-08-25 12:00] VITALS: BP 115/67
[2022-08-25 13:32] VITALS: BP 115/67
== END 2022-08-25 14:57 | disposition home health service (06) | DRG 463 ==
LOC: SUR 07:17 → TELE 10:46 → TELE-EAST 16:49
PROVIDERS: ADMIT Nurse Practitioner Acute Care; ATTEND Nurse Practitioner Acute Care
PROC: 05HC33Z Insertion of Infusion Device into Left Basilic Vein, Percutaneous Approach (ICD-10-PCS; principal; 2022-08-24)
PROC: B54NZZA Ultrasonography of Left Upper Extremity Veins, Guidance (ICD-10-PCS; 2022-08-24)
DX: N30.90 Cystitis, unspecified without hematuria (principal); I50.23 Acute on chronic systolic (congestive) heart failure; I27.20 Pulmonary hypertension, unspecified; E11.22 Type 2 diabetes mellitus with diabetic chronic kidney disease; B96.20 Unspecified Escherichia coli [E. coli] as the cause of diseases classified elsewhere; E03.9 Hypothyroidism, unspecified; E87.6 Hypokalemia; E11.42 Type 2 diabetes mellitus with diabetic polyneuropathy; E11.51 Type 2 diabetes mellitus with diabetic peripheral angiopathy without gangrene; E66.9 Obesity, unspecified; I48.91 Unspecified atrial fibrillation; G89.4 Chronic pain syndrome; I13.0 Hypertensive heart and chronic kidney disease with heart failure and stage 1 through stage 4 chronic kidney disease, or unspecified chronic kidney disease; E78.5 Hyperlipidemia, unspecified; I25.10 Atherosclerotic heart disease of native coronary artery without angina pectoris; F32.A Depression, unspecified; M79.7 Fibromyalgia; N18.32 Chronic kidney disease, stage 3b; N20.0 Calculus of kidney; Z68.38 Body mass index [BMI] 38.0-38.9, adult; Z88.1 Allergy status to other antibiotic agents; Z88.0 Allergy status to penicillin; Z88.8 Allergy status to other drugs, medicaments and biological substances; Z79.01 Long term (current) use of anticoagulants; Z79.4 Long term (current) use of insulin; Z79.899 Other long term (current) drug therapy; Z80.8 Family history of malignant neoplasm of other organs or systems; Z82.49 Family history of ischemic heart disease and other diseases of the circulatory system; Z82.5 Family history of asthma and other chronic lower respiratory diseases; Z83.3 Family history of diabetes mellitus; Z85.818 Personal history of malignant neoplasm of other sites of lip, oral cavity, and pharynx; Z86.718 Personal history of other venous thrombosis and embolism; Z87.440 Personal history of urinary (tract) infections; Z87.442 Personal history of urinary calculi; Z90.49 Acquired absence of other specified parts of digestive tract; Z95.1 Presence of aortocoronary bypass graft; Z95.810 Presence of automatic (implantable) cardiac defibrillator
CPT/HCPCS: 36415; 36600; 71045; 74176; 80048; 80053; 81001; 81025; 82805; 82962; 83735; 83880; 84132; 84443; 84702; 85025; 85610; 85730; 86850; 86900; 86901; 87086; 87088; 87186; 87426; 93005; 93306; 97110; 97163; 97530; G0378; J0696; J1815; J2001

== ENCOUNTER 2022-08-28 08:28 | Day surgery (SDC) | payer MEDICAID ==
[~2022-08-28] VITALS: Ht 1 cm; Wt 0.5 kg
[2022-08-28] MEDS ORDERED: KETAMINE HCL ONE (11:49)
[2022-08-28] MEDS ORDERED: MIDAZOLAM HCL 2MG/2ML 2ml VIAL (1mg/ml) ONE (11:49)
[2022-08-28] MEDS ORDERED: fentaNYL CITRATE 100 MCG/2 ML VL ONE (11:49)
[2022-08-28] MEDS ORDERED: PROPOFOL 10 MG/ML 20 ML IV ONE ×2 (12:33→12:52)
[2022-08-28] MEDS ORDERED: ONDANSETRON HCL 4 MG/2 ML VIAL ONE (12:56)
[2022-08-28] MEDS ORDERED: ONDANSETRON HCL 4 MG/2 ML VIAL IV PRN (13:15)
[2022-08-28 14:22] VITALS: BP 162/90
== END 2022-08-28 14:40 | disposition home or self-care (01) ==
LOC: SUR 08:28
PROVIDERS: ATTEND Urology
DX: N20.0 Calculus of kidney (principal); N30.91 Cystitis, unspecified with hematuria; I48.91 Unspecified atrial fibrillation; K21.9 Gastro-esophageal reflux disease without esophagitis; Z90.49 Acquired absence of other specified parts of digestive tract; Z98.891 History of uterine scar from previous surgery; E10.22 Type 1 diabetes mellitus with diabetic chronic kidney disease; I13.0 Hypertensive heart and chronic kidney disease with heart failure and stage 1 through stage 4 chronic kidney disease, or unspecified chronic kidney disease; I50.9 Heart failure, unspecified; N18.30 Chronic kidney disease, stage 3 unspecified; E66.01 Morbid (severe) obesity due to excess calories; Z86.718 Personal history of other venous thrombosis and embolism; M79.7 Fibromyalgia; F32.9 Major depressive disorder, single episode, unspecified
CPT/HCPCS: 50590; 52204; 82962; 88305; C1769; J2405; J2704; J3010; J7030; J2250

== ENCOUNTER 2022-11-10 12:33 | Inpatient (IN) | payer MEDICAID ==
[~2022-11-10] VITALS: Ht 160 cm; Wt 101.1 kg
[2022-11-10 15:09] LABS: Basophils # (auto) 0 10 ^3/uL (0-0.2); Basophils % (auto) 0.6 % (0.0-2.0); Eosinophils # (auto) 0.2 10 ^3/uL (0-0.8); Eosinophils % (auto) 2.8 % (0.0-7.0); Hematocrit 37.3 % (36.0-46.0); Hemoglobin 12.5 g/dL (12.2-16.2); Lymphocytes # (auto) 1.7 10 ^3/uL (0.4-5.4); Lymphocytes % (auto) 26.3 % (10.0-50.0); Mean Corpuscular Hemoglobin 28.9 pg (28.0-32.0); Mean Corpuscular Hgb Conc. 33.6 g/dL (32.0-36.0); Mean Corpuscular Volume 85.9 fL (80.0-100.0); Monocytes # (auto) 0.5 10 ^3/uL (0-1.3); Monocytes % (auto) 7.8 % (0.0-12.0); Neutrophils % (auto) 62.5 % (37.0-80.0); Nucleated Red Blood Cells % 0.2 %; Red Blood Cells 4.34 10^6/uL (4.0-5.20); Red Cell Distribution Width 16.9 % (11.8-14.3); White Blood Cell 6.4 10^3/uL (4.4-10.8)
[2022-11-10 15:17] LABS: Albumin 3.5 g/dL (3.4-5.0); Calcium 9.1 mg/dL (8.5-10.1); Potassium 3.7 mmol/L (3.5-5.1)
[2022-11-10 15:22] LABS: BUN/Creatinine Ratio 24.4; Bilirubin, Total 0.5 mg/dL (0.2-1.0); Total Protein 7.7 g/dL (6.4-8.2)
[2022-11-10 16:16] LABS: Urine Bacteria MANY /hpf (None Seen); Urine Blood 1+ /uL (Negative); Urine Budding Yeast MANY /hpf (None Seen); Urine Specific Gravity 1.006 (1.001-1.035); Urine WBC 65 /hpf (0 - 5)
[2022-11-10] MEDS ORDERED: MEROPENEM 1GM IVPB 100 ML IV ONE (17:00)
[2022-11-10] MEDS ORDERED: SODIUM CHLORIDE 0.9% 1,000 ML IV ONE (17:00)
[2022-11-10] MEDS ORDERED: LINEZOLID 600MG/300ML 300 ML IV ONE (17:15)
[2022-11-10] MEDS ORDERED: NITROGLYCERIN 0.4 MG SL TAB SL PRN (19:00)
[2022-11-10] MEDS ORDERED: LACTULOSE 20Gm/30ML SOLN PO PRN (19:00)
[2022-11-10] MEDS ORDERED: ACETAMINOPHEN 325 MG TAB PO PRN (19:00)
[2022-11-10] MEDS ORDERED: LIDOCAINE 5% TOPICAL PATCH TOP PRN (19:00)
[2022-11-10] MEDS ORDERED: MORPHINE SULFATE INJ 2 MG/ml SYRG IV PRN (19:00)
[2022-11-10] MEDS ORDERED: ONDANSETRON HCL 4 MG/2 ML VIAL IV PRN (19:00)
[2022-11-10] MEDS ORDERED: DOCUSATE SOD 100 MG CAP PO PRN (19:00)
[2022-11-10] MEDS ORDERED: DEXTROSE (50%) 50ML SYRG IV PRN (19:15)
[2022-11-10 20:15] LABS: Basophils # (auto) 0 10 ^3/uL (0-0.2); Basophils % (auto) 0.8 % (0.0-2.0); Eosinophils # (auto) 0.2 10 ^3/uL (0-0.8); Eosinophils % (auto) 3.5 % (0.0-7.0); Hematocrit 35.8 % (36.0-46.0); Hemoglobin 11.9 g/dL (12.2-16.2); Lymphocytes # (auto) 1.9 10 ^3/uL (0.4-5.4); Lymphocytes % (auto) 31.6 % (10.0-50.0); Mean Corpuscular Hemoglobin 28.5 pg (28.0-32.0); Mean Corpuscular Hgb Conc. 33.3 g/dL (32.0-36.0); Mean Corpuscular Volume 85.7 fL (80.0-100.0); Monocytes # (auto) 0.5 10 ^3/uL (0-1.3); Monocytes % (auto) 8.1 % (0.0-12.0); Neutrophils # (auto) 3.4 10 ^3/uL (1.6-8.6); Nucleated Red Blood Cells % 0.1 %; Red Blood Cells 4.18 10^6/uL (4.0-5.20); Red Cell Distribution Width 16.4 % (11.8-14.3); White Blood Cell 6.1 10^3/uL (4.4-10.8)
[2022-11-10 20:33] LABS: BUN/Creatinine Ratio 25.6; Calcium 9.5 mg/dL (8.5-10.1); Potassium 3.6 mmol/L (3.5-5.1)
[2022-11-10] MEDS: InsuLIN REG 1unit/0.01ml Soln (100units/ml) SC SCH (22:00)
[2022-11-10] MEDS ORDERED: CARVEDILOL 3.125 MG TAB PO SCH (22:00)
[2022-11-10] MEDS ORDERED: HYDROcodone-ACET 5/325MG TAB PO SCH (22:00)
[2022-11-11] MEDS: CARVEDILOL 3.125 MG TAB PO SCH ×3 (03:38→22:00)
[2022-11-11] MEDS: CYCLOBENZAPRINE HCL 10 MG TAB PO SCH ×4 (03:39→22:33)
[2022-11-11] MEDS: BUMETANIDE 1 MG TAB PO SCH ×3 (03:39→22:33)
[2022-11-11] MEDS: PREGABALIN CAPSULE 75 MG CAP PO SCH ×3 (03:41→22:00)
[2022-11-11] MEDS: levETIRAcetam 500 MG TAB PO SCH ×3 (03:41→22:32)
[2022-11-11] MEDS: TOPIRAMATE 25 MG TAB PO SCH ×3 (03:42→22:33)
[2022-11-11] MEDS: DOCUSATE SOD 100 MG CAP PO SCH ×5 (06:00→22:34)
[2022-11-11] MEDS: ATORVASTATIN 20 MG TAB PO SCH ×2 (06:52→22:31)
[2022-11-11] MEDS: RANOLAZINE ER 500 MG TAB PO SCH ×3 (06:52→22:31)
[2022-11-11] MEDS: ACCU-CHEK COMFORT CURVE STRIP VI SCH ×5 (06:53→22:18)
[2022-11-11] MEDS: InsuLIN REG 1unit/0.01ml Soln (100units/ml) SC SCH ×4 (07:00→22:35)
[2022-11-11] MEDS: APIXABAN 2.5 MG TAB PO SCH ×3 (07:09→22:34)
[2022-11-11] MEDS: LEVOTHYROXINE SODIUM 112 MCG TAB PO SCH (07:09)
[2022-11-11] MEDS: LISINOPRIL 5 MG TAB PO SCH (10:00)
[2022-11-11] MEDS: PANTOPRAZOLE 40 MG TAB PO SCH (10:00)
[2022-11-11] MEDS ORDERED: INSULIN LANTUS (GLARGINE) 1 /0.01ml (100units/ml) SC SCH (10:00)
[2022-11-11] MEDS: CITALOPRAM HYDROBR 20 MG TAB PO SCH (10:00)
[2022-11-11] MEDS: metOLazone 5 MG TAB PO SCH (10:00)
[2022-11-11] MEDS ORDERED: PANTOPRAZOLE 40 MG TAB PO SCH (10:00)
[2022-11-11] MEDS: traZODone HCL 50 MG TAB PO SCH (18:00)
[2022-11-11] MEDS ORDERED: ATORVASTATIN 20 MG TAB PO SCH (18:00)
[2022-11-11] MEDS: HYDROcodone-ACET 5/325MG TAB PO PRN (22:31)
[2022-11-11 23:30] VITALS: BP 103/50
[2022-11-12 05:00] VITALS: BP 121/62
[2022-11-12] MEDS: InsuLIN REG 1unit/0.01ml Soln (100units/ml) SC SCH ×4 (06:32→21:28)
[2022-11-12] MEDS: CYCLOBENZAPRINE HCL 10 MG TAB PO SCH ×3 (06:33→21:02)
[2022-11-12] MEDS: ACCU-CHEK COMFORT CURVE STRIP VI SCH ×4 (06:33→21:32)
[2022-11-12] MEDS: DOCUSATE SOD 100 MG CAP PO SCH ×4 (06:33→21:02)
[2022-11-12] MEDS: LEVOTHYROXINE SODIUM 112 MCG TAB PO SCH (06:33)
[2022-11-12 07:40] LABS: Basophils # (auto) 0 10 ^3/uL (0-0.2); Basophils % (auto) 0.6 % (0.0-2.0); Eosinophils # (auto) 0.2 10 ^3/uL (0-0.8); Eosinophils % (auto) 4.3 % (0.0-7.0); Hematocrit 33.9 % (36.0-46.0); Hemoglobin 11.1 g/dL (12.2-16.2); Lymphocytes # (auto) 1.9 10 ^3/uL (0.4-5.4); Lymphocytes % (auto) 38.3 % (10.0-50.0); Mean Corpuscular Hemoglobin 28.3 pg (28.0-32.0); Mean Corpuscular Hgb Conc. 32.9 g/dL (32.0-36.0); Mean Corpuscular Volume 86.2 fL (80.0-100.0); Monocytes # (auto) 0.4 10 ^3/uL (0-1.3); Neutrophils # (auto) 2.4 10 ^3/uL (1.6-8.6); Neutrophils % (auto) 47.8 % (37.0-80.0); Nucleated Red Blood Cells % 0.2 %; Red Blood Cells 3.93 10^6/uL (4.0-5.20); Red Cell Distribution Width 16.9 % (11.8-14.3); White Blood Cell 4.9 10^3/uL (4.4-10.8)
[2022-11-12 07:53] LABS: Albumin 3.4 g/dL (3.4-5.0); BUN/Creatinine Ratio 24.5; Bilirubin, Total 0.6 mg/dL (0.2-1.0); Calcium 8.9 mg/dL (8.5-10.1); Total Protein 7.1 g/dL (6.4-8.2)
[2022-11-12 09:00] VITALS: BP 103/70
[2022-11-12] MEDS: BUMETANIDE 1 MG TAB PO SCH ×2 (09:17→21:31)
[2022-11-12] MEDS: metOLazone 5 MG TAB PO SCH (09:20)
[2022-11-12] MEDS: LISINOPRIL 5 MG TAB PO SCH (09:20)
[2022-11-12] MEDS: CARVEDILOL 3.125 MG TAB PO SCH ×2 (10:00→21:31)
[2022-11-12] MEDS: levETIRAcetam 500 MG TAB PO SCH ×2 (10:00→21:01)
[2022-11-12] MEDS: CITALOPRAM HYDROBR 20 MG TAB PO SCH (10:00)
[2022-11-12] MEDS: TOPIRAMATE 25 MG TAB PO SCH ×2 (10:01→21:01)
[2022-11-12] MEDS: RANOLAZINE ER 500 MG TAB PO SCH ×2 (10:02→21:00)
[2022-11-12] MEDS: APIXABAN 2.5 MG TAB PO SCH ×2 (10:03→21:01)
[2022-11-12] MEDS: PANTOPRAZOLE 40 MG TAB PO SCH (10:03)
[2022-11-12] MEDS: PREGABALIN CAPSULE 75 MG CAP PO SCH ×2 (10:15→21:00)
[2022-11-12] MEDS: HYDROcodone-ACET 5/325MG TAB PO PRN (12:03)
[2022-11-12 13:00] VITALS: BP 108/57
[2022-11-12] MEDS ORDERED: AZTREONAM 1GM INJ 1 GM in D5W 5% 50 ML IV SCH (15:30)
[2022-11-12] MEDS: cefTRIAXone 1GM/50ML D5W 50 ML IV SCH (16:47)
[2022-11-12 17:00] VITALS: BP_SYST 105; BP_SYST 93; BP_DIAS 41; BP_DIAS 50
[2022-11-12] MEDS: traZODone HCL 50 MG TAB PO SCH (18:44)
[2022-11-12] MEDS: ATORVASTATIN 20 MG TAB PO SCH (21:01)
[2022-11-12 22:00] VITALS: BP 118/64
[2022-11-13 05:00] VITALS: BP 114/69
[2022-11-13] MEDS: InsuLIN REG 1unit/0.01ml Soln (100units/ml) SC SCH ×4 (06:00→21:29)
[2022-11-13] MEDS: ACCU-CHEK COMFORT CURVE STRIP VI SCH ×4 (06:00→21:25)
[2022-11-13] MEDS: CYCLOBENZAPRINE HCL 10 MG TAB PO SCH ×3 (06:01→21:20)
[2022-11-13] MEDS: DOCUSATE SOD 100 MG CAP PO SCH ×4 (06:01→21:21)
[2022-11-13] MEDS: LEVOTHYROXINE SODIUM 112 MCG TAB PO SCH (06:02)
[2022-11-13 09:30] VITALS: BP 101/51
[2022-11-13] MEDS: APIXABAN 2.5 MG TAB PO SCH ×2 (09:46→21:19)
[2022-11-13] MEDS: RANOLAZINE ER 500 MG TAB PO SCH ×2 (09:46→21:22)
[2022-11-13] MEDS: PANTOPRAZOLE 40 MG TAB PO SCH (09:46)
[2022-11-13] MEDS: cefTRIAXone 1GM/50ML D5W 50 ML IV SCH (09:46)
[2022-11-13] MEDS: CITALOPRAM HYDROBR 20 MG TAB PO SCH (09:46)
[2022-11-13] MEDS: PREGABALIN CAPSULE 75 MG CAP PO SCH ×2 (09:46→21:18)
[2022-11-13] MEDS: levETIRAcetam 500 MG TAB PO SCH ×2 (09:47→21:23)
[2022-11-13] MEDS: TOPIRAMATE 25 MG TAB PO SCH ×2 (09:47→21:19)
[2022-11-13] MEDS: BUMETANIDE 1 MG TAB PO SCH ×2 (09:48→21:24)
[2022-11-13] MEDS: CARVEDILOL 3.125 MG TAB PO SCH ×2 (10:00→21:25)
[2022-11-13] MEDS: LISINOPRIL 5 MG TAB PO SCH (10:00)
[2022-11-13] MEDS: metOLazone 5 MG TAB PO SCH (10:00)
[2022-11-13] MEDS: INSULIN LANTUS (GLARGINE) 1 /0.01ml (100units/ml) SC SCH (12:08)
[2022-11-13 13:00] VITALS: BP 134/55
[2022-11-13 16:57] VITALS: BP 108/50
[2022-11-13] MEDS: traZODone HCL 50 MG TAB PO SCH (17:33)
[2022-11-13 19:40] VITALS: BP 113/52
[2022-11-13] MEDS: ATORVASTATIN 20 MG TAB PO SCH (21:22)
[2022-11-13 22:00] VITALS: BP 113/52
[2022-11-14 05:00] VITALS: BP 101/47
[2022-11-14] MEDS: DOCUSATE SOD 100 MG CAP PO SCH ×4 (06:42→22:25)
[2022-11-14] MEDS: LEVOTHYROXINE SODIUM 112 MCG TAB PO SCH (06:43)
[2022-11-14] MEDS: ACCU-CHEK COMFORT CURVE STRIP VI SCH ×4 (06:43→22:26)
[2022-11-14] MEDS: CYCLOBENZAPRINE HCL 10 MG TAB PO SCH ×3 (06:43→22:25)
[2022-11-14] MEDS: InsuLIN REG 1unit/0.01ml Soln (100units/ml) SC SCH ×4 (06:52→22:40)
[2022-11-14 09:00] VITALS: BP 121/56
[2022-11-14] MEDS: cefTRIAXone 1GM/50ML D5W 50 ML IV SCH (09:44)
[2022-11-14] MEDS: BUMETANIDE 1 MG TAB PO SCH ×2 (09:45→22:00)
[2022-11-14] MEDS: CITALOPRAM HYDROBR 20 MG TAB PO SCH (09:45)
[2022-11-14] MEDS: APIXABAN 2.5 MG TAB PO SCH ×2 (09:46→22:25)
[2022-11-14] MEDS: CARVEDILOL 3.125 MG TAB PO SCH ×3 (09:46→22:00)
[2022-11-14] MEDS: RANOLAZINE ER 500 MG TAB PO SCH ×2 (09:48→22:26)
[2022-11-14] MEDS: levETIRAcetam 500 MG TAB PO SCH ×2 (09:48→22:25)
[2022-11-14] MEDS: LISINOPRIL 5 MG TAB PO SCH (09:48)
[2022-11-14] MEDS: metOLazone 5 MG TAB PO SCH (09:49)
[2022-11-14] MEDS: LINEZOLID 600MG TABLET PO SCH ×2 (09:49→22:26)
[2022-11-14] MEDS: TOPIRAMATE 25 MG TAB PO SCH ×2 (09:50→22:26)
[2022-11-14] MEDS: PANTOPRAZOLE 40 MG TAB PO SCH (09:50)
[2022-11-14] MEDS: HYDROcodone-ACET 5/325MG TAB PO PRN (09:51)
[2022-11-14] MEDS: PREGABALIN CAPSULE 75 MG CAP PO SCH ×2 (10:00→22:26)
[2022-11-14] MEDS: INSULIN LANTUS (GLARGINE) 1 /0.01ml (100units/ml) SC SCH (10:05)
[2022-11-14 13:00] VITALS: BP 93/53
[2022-11-14 17:15] VITALS: BP 115/67
[2022-11-14] MEDS: traZODone HCL 50 MG TAB PO SCH (17:26)
[2022-11-14 22:00] VITALS: BP 94/36
[2022-11-14] MEDS: ATORVASTATIN 20 MG TAB PO SCH (22:25)
[2022-11-14] MEDS ORDERED: CARVEDILOL 3.125 MG TAB PO ONE (22:30)
[2022-11-15 05:00] VITALS: BP_SYST 0; BP_SYST 111; BP_DIAS 59
[2022-11-15] MEDS: ACCU-CHEK COMFORT CURVE STRIP VI SCH ×4 (05:55→22:00)
[2022-11-15] MEDS: DOCUSATE SOD 100 MG CAP PO SCH ×4 (05:55→22:01)
[2022-11-15] MEDS: LEVOTHYROXINE SODIUM 112 MCG TAB PO SCH (05:55)
[2022-11-15] MEDS: CYCLOBENZAPRINE HCL 10 MG TAB PO SCH ×3 (05:55→22:01)
[2022-11-15] MEDS: InsuLIN REG 1unit/0.01ml Soln (100units/ml) SC SCH ×4 (06:17→21:50)
[2022-11-15] MEDS: HYDROcodone-ACET 5/325MG TAB PO PRN (06:20)
[2022-11-15 09:00] VITALS: BP 105/48
[2022-11-15] MEDS: cefTRIAXone 1GM/50ML D5W 50 ML IV SCH (09:19)
[2022-11-15] MEDS: RANOLAZINE ER 500 MG TAB PO SCH ×2 (09:20→21:57)
[2022-11-15] MEDS: BUMETANIDE 1 MG TAB PO SCH ×2 (09:20→22:02)
[2022-11-15] MEDS: LINEZOLID 600MG TABLET PO SCH ×2 (09:20→22:00)
[2022-11-15] MEDS: TOPIRAMATE 25 MG TAB PO SCH ×2 (09:20→22:02)
[2022-11-15] MEDS: metOLazone 5 MG TAB PO SCH (09:21)
[2022-11-15] MEDS: levETIRAcetam 500 MG TAB PO SCH ×2 (09:21→21:57)
[2022-11-15] MEDS: LISINOPRIL 5 MG TAB PO SCH (09:21)
[2022-11-15] MEDS: PANTOPRAZOLE 40 MG TAB PO SCH (09:22)
[2022-11-15] MEDS: APIXABAN 2.5 MG TAB PO SCH ×2 (09:22→22:01)
[2022-11-15] MEDS: CITALOPRAM HYDROBR 20 MG TAB PO SCH (09:23)
[2022-11-15] MEDS: PREGABALIN CAPSULE 75 MG CAP PO SCH ×2 (09:23→21:59)
[2022-11-15] MEDS: CARVEDILOL 3.125 MG TAB PO SCH ×2 (09:26→21:59)
[2022-11-15] MEDS: INSULIN LANTUS (GLARGINE) 1 /0.01ml (100units/ml) SC SCH (09:29)
[2022-11-15 12:30] VITALS: BP 104/55
[2022-11-15] MEDS ORDERED: APIX2.5T PO (16:14)
[2022-11-15] MEDS ORDERED: NITR50CA24 PO (16:16)
[2022-11-15] MEDS ORDERED: CEFD300C2 PO (16:16)
[2022-11-15 17:00] VITALS: BP 107/57
[2022-11-15] MEDS: traZODone HCL 50 MG TAB PO SCH (18:07)
[2022-11-15 22:00] VITALS: BP 104/54
[2022-11-15] MEDS: ATORVASTATIN 20 MG TAB PO SCH (22:01)
[2022-11-16 05:00] VITALS: BP 127/70
[2022-11-16] MEDS: HYDROcodone-ACET 5/325MG TAB PO PRN (05:11)
[2022-11-16] MEDS: DOCUSATE SOD 100 MG CAP PO SCH ×2 (06:00→11:57)
[2022-11-16] MEDS: CYCLOBENZAPRINE HCL 10 MG TAB PO SCH ×2 (06:00→14:34)
[2022-11-16] MEDS: LEVOTHYROXINE SODIUM 112 MCG TAB PO SCH (06:18)
[2022-11-16] MEDS: InsuLIN REG 1unit/0.01ml Soln (100units/ml) SC SCH ×3 (06:19→17:42)
[2022-11-16] MEDS: ACCU-CHEK COMFORT CURVE STRIP VI SCH ×3 (06:55→17:41)
[2022-11-16 07:30] VITALS: BP 123/66
[2022-11-16] MEDS: cefTRIAXone 1GM/50ML D5W 50 ML IV SCH (08:48)
[2022-11-16] MEDS: LINEZOLID 600MG TABLET PO SCH (10:43)
[2022-11-16] MEDS: RANOLAZINE ER 500 MG TAB PO SCH (10:43)
[2022-11-16] MEDS: PANTOPRAZOLE 40 MG TAB PO SCH (10:43)
[2022-11-16] MEDS: CITALOPRAM HYDROBR 20 MG TAB PO SCH (10:43)
[2022-11-16] MEDS: CARVEDILOL 3.125 MG TAB PO SCH (10:44)
[2022-11-16] MEDS: metOLazone 5 MG TAB PO SCH (10:45)
[2022-11-16] MEDS: TOPIRAMATE 25 MG TAB PO SCH (10:45)
[2022-11-16] MEDS: BUMETANIDE 1 MG TAB PO SCH (10:45)
[2022-11-16] MEDS: LISINOPRIL 5 MG TAB PO SCH (10:50)
[2022-11-16] MEDS: INSULIN LANTUS (GLARGINE) 1 /0.01ml (100units/ml) SC SCH (10:53)
[2022-11-16] MEDS: APIXABAN 2.5 MG TAB PO SCH (10:55)
[2022-11-16] MEDS: levETIRAcetam 500 MG TAB PO SCH (10:55)
[2022-11-16] MEDS: PREGABALIN CAPSULE 75 MG CAP PO SCH (11:28)
[2022-11-16 12:38] VITALS: BP 123/66
[2022-11-16 13:00] VITALS: BP 120/64
[2022-11-16 13:08] VITALS: BP 133/66
[2022-11-16 16:30] VITALS: BP 122/69
[2022-11-16] MEDS: traZODone HCL 50 MG TAB PO SCH (17:45)
== END 2022-11-16 17:40 | disposition home or self-care (01) | DRG 463 ==
LOC: EDBD 12:33 → ER 12:33 → OVERFLOW 18:58 → TELE-WESTW 11-11 22:41
PROVIDERS: ADMIT Internal Medicine; ATTEND Internal Medicine
DX: N30.00 Acute cystitis without hematuria (principal); R53.2 Functional quadriplegia; E11.22 Type 2 diabetes mellitus with diabetic chronic kidney disease; I13.0 Hypertensive heart and chronic kidney disease with heart failure and stage 1 through stage 4 chronic kidney disease, or unspecified chronic kidney disease; I50.9 Heart failure, unspecified; D64.9 Anemia, unspecified; E11.65 Type 2 diabetes mellitus with hyperglycemia; E66.9 Obesity, unspecified; H54.7 Unspecified visual loss; E86.0 Dehydration; G40.909 Epilepsy, unspecified, not intractable, without status epilepticus; G89.29 Other chronic pain; I25.10 Atherosclerotic heart disease of native coronary artery without angina pectoris; J44.9 Chronic obstructive pulmonary disease, unspecified; N18.30 Chronic kidney disease, stage 3 unspecified; Z16.24 Resistance to multiple antibiotics; Z20.822 Contact with and (suspected) exposure to COVID-19; F32.A Depression, unspecified; F41.9 Anxiety disorder, unspecified; M19.90 Unspecified osteoarthritis, unspecified site; M54.50 Low back pain, unspecified; I25.2 Old myocardial infarction; K59.00 Constipation, unspecified; Z86.14 Personal history of Methicillin resistant Staphylococcus aureus infection; Z87.440 Personal history of urinary (tract) infections; Z87.442 Personal history of urinary calculi; Z82.49 Family history of ischemic heart disease and other diseases of the circulatory system; Z82.5 Family history of asthma and other chronic lower respiratory diseases; Z83.3 Family history of diabetes mellitus; Z86.73 Personal history of transient ischemic attack (TIA), and cerebral infarction without residual deficits; Z95.1 Presence of aortocoronary bypass graft; Z80.8 Family history of malignant neoplasm of other organs or systems; Z88.1 Allergy status to other antibiotic agents; Z88.0 Allergy status to penicillin; Z88.2 Allergy status to sulfonamides; Z88.8 Allergy status to other drugs, medicaments and biological substances; Z90.49 Acquired absence of other specified parts of digestive tract; Z68.39 Body mass index [BMI] 39.0-39.9, adult; Z95.0 Presence of cardiac pacemaker
CPT/HCPCS: 36415; 74176; 80048; 80053; 81001; 82962; 84484; 85025; 87086; 87088; 87186; 87426; 96365; 96366; 96372; G0378; J0696; J1815; J7060

== ENCOUNTER 2023-03-15 09:20 | Day surgery (SDC) | payer MEDICAID ==
[2023-03-12 14:49] LABS: Basophils # (auto) 0.1 10 ^3/uL (0-0.2); Basophils % (auto) 1.3 % (0.0-2.0); Eosinophils # (auto) 0.1 10 ^3/uL (0-0.8); Eosinophils % (auto) 2.4 % (0.0-7.0); Hematocrit 36.2 % (36.0-46.0); Hemoglobin 11.7 g/dL (12.2-16.2); Lymphocytes # (auto) 1.8 10 ^3/uL (0.4-5.4); Lymphocytes % (auto) 38.3 % (10.0-50.0); Mean Corpuscular Hemoglobin 28.9 pg (28.0-32.0); Mean Corpuscular Hgb Conc. 32.4 g/dL (32.0-36.0); Mean Corpuscular Volume 89.3 fL (80.0-100.0); Monocytes # (auto) 0.4 10 ^3/uL (0-1.3); Neutrophils # (auto) 2.3 10 ^3/uL (1.6-8.6); Nucleated Red Blood Cells % 0.2 %; Red Blood Cells 4.05 10^6/uL (4.0-5.20); Red Cell Distribution Width 16.8 % (11.8-14.3); White Blood Cell 4.7 10^3/uL (4.4-10.8)
[2023-03-12 15:00] LABS: INR 0.95 (0.9-1.15); Partial Thromboplastin Time 26.5 sec (24.6-33.4)
[2023-03-12 15:21] LABS: Potassium 3.2 mmol/L (3.5-5.1)
[2023-03-12 15:28] LABS: Albumin 3.8 g/dL (3.4-5.0); BUN/Creatinine Ratio 22.1 (10.0-20.0); Bilirubin, Total 0.4 mg/dL (0.2-1.0); Calcium 9.2 mg/dL (8.5-10.1); Total Protein 8.6 g/dL (6.4-8.2)
[2023-03-12 16:09] LABS: Urine Bacteria FEW /hpf (None Seen); Urine Blood Negative /uL (Negative); Urine Budding Yeast MANY /hpf (None Seen); Urine Mucus FEW (None Seen); Urine Specific Gravity 1.008 (1.001-1.035); Urine WBC 11 /hpf (0 - 5)
[~2023-03-15] VITALS: Ht 160 cm; Wt 99.8 kg
[~2023-03-15 09:20] MED LIST changes: +ALBUAER3 IN; +APIX2.5T PO; -APIX5TAB PO; +ASPI1TAB20 PO; +BECL80AE11 IN; -CAR3125T PO; -CARV6.2551 PO; +CEFD300C2 PO; +INSLANTI SC; +INSLISPI SC; -INSU100I25 SC; -INSU1INJ19 SC; -LACT10SO3 PO; +LINA145C OR
[2023-03-15] MEDS ORDERED: GENTAMICIN SULF 80 MG/2 ML VIAL ONE (11:35)
[2023-03-15] MEDS ORDERED: PROPOFOL 10 MG/ML 20 ML IV ONE (12:01)
[2023-03-15] MEDS ORDERED: KETOROLAC TROMETH 30 MG/ML 1ML VIAL ONE (12:01)
[2023-03-15] MEDS ORDERED: GLYCOPYRROLATE 0.2 MG/ML 1ML VIAL ONE (12:01)
[2023-03-15] MEDS ORDERED: ONDANSETRON HCL 4 MG/2 ML VIAL ONE (12:01)
[2023-03-15] MEDS ORDERED: LIDOCAINE W/ EPINEPHRINE 1% 20ML VIAL ONE (12:14)
[2023-03-15] MEDS ORDERED: LIDOCAINE 2% JELLY 11ml (GLYDO) ONE (12:14)
[2023-03-15] MEDS ORDERED: ePHEDrine SULFATE 50 MG/ML AMP IV PRN (13:45)
[2023-03-15] MEDS ORDERED: NALOXONE HCL 0.4 MG/ML VIAL IV PRN (13:45)
[2023-03-15] MEDS ORDERED: LABETALOL HCL 5 MG/ML 4ML SYRINGE IV PRN (13:45)
[2023-03-15] MEDS ORDERED: HYDROmorphone HCL 2 MG/ML VL/or syr IV PRN (13:45)
[2023-03-15] MEDS ORDERED: hydrALAZINE HCL 20 MG/ML VL IV PRN (13:45)
[2023-03-15] MEDS ORDERED: FLUMAZENIL 0.1 MG/ML INJ 10ML MDV IV PRN (13:45)
[2023-03-15] MEDS ORDERED: ONDANSETRON HCL 4 MG/2 ML VIAL IV PRN (13:45)
[2023-03-15] MEDS ORDERED: fentaNYL CITRATE 100 MCG/2 ML VL IV PRN (13:45)
[2023-03-15 14:30] VITALS: BP 13/82
== END 2023-03-15 14:37 | disposition home or self-care (01) ==
LOC: SUR 09:20
PROVIDERS: ATTEND Urology
DX: N31.9 Neuromuscular dysfunction of bladder, unspecified (principal); E11.9 Type 2 diabetes mellitus without complications; F41.8 Other specified anxiety disorders; I10 Essential (primary) hypertension; E03.9 Hypothyroidism, unspecified; J44.9 Chronic obstructive pulmonary disease, unspecified; E66.9 Obesity, unspecified; Z68.39 Body mass index [BMI] 39.0-39.9, adult; Z87.891 Personal history of nicotine dependence; Z95.0 Presence of cardiac pacemaker; Z80.9 Family history of malignant neoplasm, unspecified; Z82.49 Family history of ischemic heart disease and other diseases of the circulatory system; Z82.61 Family history of arthritis; Z82.5 Family history of asthma and other chronic lower respiratory diseases; Z83.3 Family history of diabetes mellitus; Z88.8 Allergy status to other drugs, medicaments and biological substances; Z88.0 Allergy status to penicillin; Z88.2 Allergy status to sulfonamides; Z79.4 Long term (current) use of insulin; Z79.890 Hormone replacement therapy; Z98.890 Other specified postprocedural states
CPT/HCPCS: 36415; 51040; 80053; 81001; 82962; 85025; 85610; 85730; 87086; J1580; J1885; J2405; J2704

== ENCOUNTER 2023-04-10 00:24 | Inpatient (IN) | payer MEDICAID ==
[~2023-04-10] VITALS: Ht 157.5 cm; Wt 130.0 kg
[~2023-04-10 00:24] MED LIST changes: +DOCU-209 PO; -DOCU1CAP22 PO; +TRAZ-227 PO; -TRAZ50TA2 PO
[2023-04-10] MEDS ORDERED: ACETAMINOPHEN 500 MG TAB PO ONE (00:45)
[2023-04-10 01:41] LABS: Basophils # (auto) 0 10 ^3/uL (0-0.2); Basophils % (auto) 0.2 % (0.0-2.0); Eosinophils # (auto) 0 10 ^3/uL (0-0.8); Eosinophils % (auto) 0.4 % (0.0-7.0); Hematocrit 34.5 % (36.0-46.0); Hemoglobin 11.4 g/dL (12.2-16.2); Lymphocytes # (auto) 0.9 10 ^3/uL (0.4-5.4); Lymphocytes % (auto) 7.5 % (10.0-50.0); Mean Corpuscular Hemoglobin 30.5 pg (28.0-32.0); Mean Corpuscular Hgb Conc. 32.9 g/dL (32.0-36.0); Mean Corpuscular Volume 92.7 fL (80.0-100.0); Monocytes # (auto) 0.7 10 ^3/uL (0-1.3); Monocytes % (auto) 5.3 % (0.0-12.0); Neutrophils # (auto) 10.9 10 ^3/uL (1.6-8.6); Neutrophils % (auto) 86.6 % (37.0-80.0); Red Blood Cells 3.73 10^6/uL (4.0-5.20); Red Cell Distribution Width 16.2 % (11.8-14.3); White Blood Cell 12.6 10^3/uL (4.4-10.8)
[2023-04-10] MEDS ORDERED: IOHEXOL 350 MG/ML 100ML IJ ONE (01:51)
[2023-04-10 01:52] LABS: Albumin 3.4 g/dL (3.4-5.0); Calcium 9.3 mg/dL (8.5-10.1)
[2023-04-10 01:54] LABS: BUN/Creatinine Ratio 22.3 (10.0-20.0)
[2023-04-10 01:56] LABS: Bilirubin, Total 0.8 mg/dL (0.2-1.0); Total Protein 7.9 g/dL (6.4-8.2)
[2023-04-10] MEDS ORDERED: cefTRIAXone 1GM/50ML D5W 50 ML IV ONE (02:45)
[2023-04-10 03:43] LABS: Urine Bacteria FEW /hpf (None Seen); Urine Blood TRACE /uL (Negative); Urine Specific Gravity 1.019 (1.001-1.035); Urine WBC 28 /hpf (0 - 5)
[2023-04-10] MEDS ORDERED: ACETAMINOPHEN 325 MG TAB PO PRN (06:45)
[2023-04-10] MEDS ORDERED: DEXTROSE (50%) 50ML SYRG IV PRN (06:45)
[2023-04-10] MEDS: LEVOTHYROXINE SODIUM 112 MCG TAB PO SCH (07:26)
[2023-04-10] MEDS: InsuLIN REG 1unit/0.01ml Soln (100units/ml) SC SCH ×4 (07:28→22:00)
[2023-04-10] MEDS: ACCU-CHEK COMFORT CURVE STRIP VI SCH ×4 (07:30→22:00)
[2023-04-10] MEDS: METOPROLOL SUCCINATE XL 50 MG TAB PO SCH (10:00)
[2023-04-10] MEDS: levETIRAcetam 500 MG TAB PO SCH ×2 (10:55→22:21)
[2023-04-10] MEDS: PANTOPRAZOLE 40 MG TAB PO SCH (10:56)
[2023-04-10] MEDS: RANOLAZINE ER 500 MG TAB PO SCH ×2 (10:56→22:21)
[2023-04-10] MEDS: cefTRIAXone 1GM/50ML D5W 50 ML IV SCH (10:57)
[2023-04-10] MEDS: SILDENAFIL CITRATE 20 MG TAB PO SCH ×2 (11:15→22:19)
[2023-04-10] MEDS: APIXABAN 2.5 MG TAB PO SCH ×2 (11:15→22:21)
[2023-04-10] MEDS: MORPHINE SULFATE INJ 2 MG/ml SYRG IV PRN ×2 (13:35→20:33)
[2023-04-10] MEDS: ONDANSETRON HCL 4 MG/2 ML VIAL IV PRN ×2 (13:35→20:34)
[2023-04-10] MEDS: SODIUM CHLORIDE 0.9% 1,000 ML IV SCH ×2 (13:54→22:21)
[2023-04-10 22:00] VITALS: BP 130/57
[2023-04-10] MEDS: ATORVASTATIN 20 MG TAB PO SCH (22:19)
[2023-04-10] MEDS: TEMAZEPAM 15 MG CAP PO PRN (22:28)
[2023-04-10 23:39] VITALS: BP 130/57
[2023-04-11] VITALS (7 sets, daily range): BP systolic 119–149; BP diastolic 49–59
[2023-04-11] MEDS: MORPHINE SULFATE INJ 2 MG/ml SYRG IV PRN ×3 (04:59→22:33)
[2023-04-11 06:29] LABS: Basophils # (auto) 0 10 ^3/uL (0-0.2); Basophils % (auto) 0.5 % (0.0-2.0); Eosinophils # (auto) 0.1 10 ^3/uL (0-0.8); Hematocrit 31.5 % (36.0-46.0); Hemoglobin 10.1 g/dL (12.2-16.2); Lymphocytes # (auto) 1.1 10 ^3/uL (0.4-5.4); Lymphocytes % (auto) 16.2 % (10.0-50.0); Mean Corpuscular Hgb Conc. 31.9 g/dL (32.0-36.0); Mean Corpuscular Volume 94.2 fL (80.0-100.0); Monocytes # (auto) 0.5 10 ^3/uL (0-1.3); Monocytes % (auto) 7.6 % (0.0-12.0); Neutrophils # (auto) 4.9 10 ^3/uL (1.6-8.6); Neutrophils % (auto) 73.7 % (37.0-80.0); Nucleated Red Blood Cells % 0.1 %; Red Blood Cells 3.35 10^6/uL (4.0-5.20); Red Cell Distribution Width 16.2 % (11.8-14.3); White Blood Cell 6.7 10^3/uL (4.4-10.8)
[2023-04-11 06:44] LABS: BUN/Creatinine Ratio 21.5 (10.0-20.0); Calcium 8.6 mg/dL (8.5-10.1); Potassium 4.9 mmol/L (3.5-5.1)
[2023-04-11] MEDS: ACCU-CHEK COMFORT CURVE STRIP VI SCH ×4 (06:57→20:17)
[2023-04-11] MEDS: LEVOTHYROXINE SODIUM 112 MCG TAB PO SCH (06:58)
[2023-04-11] MEDS: InsuLIN REG 1unit/0.01ml Soln (100units/ml) SC SCH ×4 (07:00→20:17)
[2023-04-11] MEDS: cefTRIAXone 1GM/50ML D5W 50 ML IV SCH (09:47)
[2023-04-11] MEDS: RANOLAZINE ER 500 MG TAB PO SCH ×2 (09:47→22:11)
[2023-04-11] MEDS: APIXABAN 2.5 MG TAB PO SCH ×2 (09:48→22:12)
[2023-04-11] MEDS: SILDENAFIL CITRATE 20 MG TAB PO SCH ×2 (09:48→22:11)
[2023-04-11] MEDS: METOPROLOL SUCCINATE XL 50 MG TAB PO SCH (09:48)
[2023-04-11] MEDS: PANTOPRAZOLE 40 MG TAB PO SCH (09:48)
[2023-04-11] MEDS: levETIRAcetam 500 MG TAB PO SCH ×2 (09:48→22:11)
[2023-04-11] MEDS: SODIUM CHLORIDE 0.9% 1,000 ML IV SCH ×2 (09:51→19:15)
[2023-04-11] MEDS: DOCUSATE SOD 100 MG CAP PO SCH ×3 (12:08→22:11)
[2023-04-11] MEDS: CYCLOBENZAPRINE HCL 10 MG TAB PO SCH ×2 (15:14→22:12)
[2023-04-11] MEDS: traZODone HCL 50 MG TAB PO SCH (17:42)
[2023-04-11] MEDS: TOPIRAMATE 25 MG TAB PO SCH (22:11)
[2023-04-11] MEDS: TEMAZEPAM 15 MG CAP PO PRN (22:11)
[2023-04-11] MEDS: ATORVASTATIN 20 MG TAB PO SCH (22:11)
[2023-04-12 05:00] VITALS: BP 104/52
[2023-04-12] MEDS: SODIUM CHLORIDE 0.9% 1,000 ML IV SCH (05:15)
[2023-04-12] MEDS: LEVOTHYROXINE SODIUM 112 MCG TAB PO SCH (06:39)
[2023-04-12] MEDS: ACCU-CHEK COMFORT CURVE STRIP VI SCH ×7 (06:40→22:29)
[2023-04-12] MEDS: DOCUSATE SOD 100 MG CAP PO SCH ×4 (06:40→21:35)
[2023-04-12] MEDS: CYCLOBENZAPRINE HCL 10 MG TAB PO SCH ×3 (06:40→21:35)
[2023-04-12] MEDS: InsuLIN REG 1unit/0.01ml Soln (100units/ml) SC SCH ×3 (06:40→17:00)
[2023-04-12 06:48] LABS: Basophils # (auto) 0 10 ^3/uL (0-0.2); Basophils % (auto) 0.4 % (0.0-2.0); Eosinophils # (auto) 0.2 10 ^3/uL (0-0.8); Eosinophils % (auto) 2.5 % (0.0-7.0); Hematocrit 28.9 % (36.0-46.0); Hemoglobin 9.5 g/dL (12.2-16.2); Lymphocytes # (auto) 1.2 10 ^3/uL (0.4-5.4); Lymphocytes % (auto) 16.1 % (10.0-50.0); Mean Corpuscular Hemoglobin 30.2 pg (28.0-32.0); Mean Corpuscular Volume 91.7 fL (80.0-100.0); Monocytes # (auto) 0.6 10 ^3/uL (0-1.3); Monocytes % (auto) 7.4 % (0.0-12.0); Neutrophils # (auto) 5.5 10 ^3/uL (1.6-8.6); Neutrophils % (auto) 73.6 % (37.0-80.0); Nucleated Red Blood Cells % 0.1 %; Red Blood Cells 3.15 10^6/uL (4.0-5.20); Red Cell Distribution Width 15.6 % (11.8-14.3); White Blood Cell 7.4 10^3/uL (4.4-10.8)
[2023-04-12 06:57] LABS: BUN/Creatinine Ratio 20.5 (10.0-20.0); Calcium 8.3 mg/dL (8.5-10.1); Potassium 4.3 mmol/L (3.5-5.1)
[2023-04-12] MEDS: MORPHINE SULFATE INJ 2 MG/ml SYRG IV PRN ×3 (08:48→20:38)
[2023-04-12] MEDS: SILDENAFIL CITRATE 20 MG TAB PO SCH ×2 (08:50→21:34)
[2023-04-12] MEDS: levETIRAcetam 500 MG TAB PO SCH ×2 (08:50→21:34)
[2023-04-12] MEDS: CITALOPRAM HYDROBR 20 MG TAB PO SCH (08:50)
[2023-04-12] MEDS: APIXABAN 2.5 MG TAB PO SCH ×2 (08:50→21:35)
[2023-04-12] MEDS: TOPIRAMATE 25 MG TAB PO SCH ×2 (08:50→21:35)
[2023-04-12] MEDS: RANOLAZINE ER 500 MG TAB PO SCH ×2 (08:50→21:34)
[2023-04-12 09:00] VITALS: BP 119/53
[2023-04-12] MEDS: cefTRIAXone 1GM/50ML D5W 50 ML IV SCH (09:00)
[2023-04-12] MEDS: LISINOPRIL 5 MG TAB PO SCH (10:00)
[2023-04-12] MEDS: METOPROLOL SUCCINATE XL 50 MG TAB PO SCH (10:00)
[2023-04-12] MEDS ORDERED: INSULIN LANTUS (GLARGINE) 1 /0.01ml (100units/ml) SC SCH (11:15)
[2023-04-12] MEDS ORDERED: DEXTROSE (50%) 50ML SYRG IV PRN (11:30)
[2023-04-12 13:00] VITALS: BP 114/45
[2023-04-12 13:27] LABS: Basophils # (auto) 0 10 ^3/uL (0-0.2); Basophils % (auto) 0.4 % (0.0-2.0); Eosinophils # (auto) 0.1 10 ^3/uL (0-0.8); Eosinophils % (auto) 1.9 % (0.0-7.0); Hematocrit 31.1 % (36.0-46.0); Hemoglobin 10.1 g/dL (12.2-16.2); Lymphocytes # (auto) 1.2 10 ^3/uL (0.4-5.4); Lymphocytes % (auto) 18.3 % (10.0-50.0); Mean Corpuscular Hemoglobin 29.9 pg (28.0-32.0); Mean Corpuscular Hgb Conc. 32.4 g/dL (32.0-36.0); Mean Corpuscular Volume 92.4 fL (80.0-100.0); Monocytes # (auto) 0.5 10 ^3/uL (0-1.3); Monocytes % (auto) 7.4 % (0.0-12.0); Neutrophils # (auto) 4.7 10 ^3/uL (1.6-8.6); Nucleated Red Blood Cells % 0.1 %; Red Blood Cells 3.37 10^6/uL (4.0-5.20); Red Cell Distribution Width 15.7 % (11.8-14.3); White Blood Cell 6.6 10^3/uL (4.4-10.8)
[2023-04-12 13:37] LABS: BUN/Creatinine Ratio 20.5 (10.0-20.0); Calcium 8.5 mg/dL (8.5-10.1)
[2023-04-12 16:55] VITALS: BP 134/54
[2023-04-12] MEDS: traZODone HCL 50 MG TAB PO SCH (17:51)
[2023-04-12] MEDS: ATORVASTATIN 20 MG TAB PO SCH (21:35)
[2023-04-12 22:00] VITALS: BP 117/58
[2023-04-12] MEDS ORDERED: InsuLIN REG 1unit/0.01ml Soln (100units/ml) SC SCH (22:00)
[2023-04-12] MEDS: INSULIN LANTUS (GLARGINE) 1 /0.01ml (100units/ml) SC SCH (22:36)
[2023-04-13 05:00] VITALS: BP 107/61
[2023-04-13 05:40] VITALS: BP 101/45
[2023-04-13] MEDS: ACCU-CHEK COMFORT CURVE STRIP VI SCH ×6 (06:06→17:00)
[2023-04-13] MEDS: InsuLIN REG 1unit/0.01ml Soln (100units/ml) SC SCH ×3 (06:06→17:00)
[2023-04-13] MEDS: DOCUSATE SOD 100 MG CAP PO SCH ×3 (06:06→18:00)
[2023-04-13] MEDS: LEVOTHYROXINE SODIUM 112 MCG TAB PO SCH (06:06)
[2023-04-13] MEDS: CYCLOBENZAPRINE HCL 10 MG TAB PO SCH ×2 (06:06→14:59)
[2023-04-13 09:00] VITALS: BP 129/63
[2023-04-13] MEDS: cefTRIAXone 1GM/50ML D5W 50 ML IV SCH (09:00)
[2023-04-13] MEDS: TOPIRAMATE 25 MG TAB PO SCH (10:00)
[2023-04-13] MEDS: APIXABAN 2.5 MG TAB PO SCH (11:00)
[2023-04-13] MEDS: levETIRAcetam 500 MG TAB PO SCH (11:00)
[2023-04-13] MEDS: CITALOPRAM HYDROBR 20 MG TAB PO SCH (11:00)
[2023-04-13] MEDS: RANOLAZINE ER 500 MG TAB PO SCH (11:01)
[2023-04-13] MEDS: SILDENAFIL CITRATE 20 MG TAB PO SCH (11:01)
[2023-04-13] MEDS: LISINOPRIL 5 MG TAB PO SCH (11:14)
[2023-04-13] MEDS: INSULIN LANTUS (GLARGINE) 1 /0.01ml (100units/ml) SC SCH (11:16)
[2023-04-13] MEDS: METOPROLOL SUCCINATE XL 50 MG TAB PO SCH (11:28)
[2023-04-13 12:38] VITALS: BP 135/60
[2023-04-13 16:01] VITALS: BP 129/63
[2023-04-13 16:45] VITALS: BP 106/50
[2023-04-13] MEDS: traZODone HCL 50 MG TAB PO SCH (18:00)
== END 2023-04-13 19:36 | disposition home or self-care (01) | DRG 469 ==
LOC: EDBD 00:24 → EDUNIT# 00:24 → ER 00:24 → OVERFLOW 06:38 → WEST WING 21:28
PROVIDERS: ADMIT Nurse Practitioner; ATTEND Internal Medicine Pulmonary Disease
DX: N17.9 Acute kidney failure, unspecified (principal); I21.4 Non-ST elevation (NSTEMI) myocardial infarction; R53.2 Functional quadriplegia; E11.649 Type 2 diabetes mellitus with hypoglycemia without coma; E11.22 Type 2 diabetes mellitus with diabetic chronic kidney disease; E11.65 Type 2 diabetes mellitus with hyperglycemia; I50.9 Heart failure, unspecified; I13.0 Hypertensive heart and chronic kidney disease with heart failure and stage 1 through stage 4 chronic kidney disease, or unspecified chronic kidney disease; N39.0 Urinary tract infection, site not specified; E66.01 Morbid (severe) obesity due to excess calories; K59.00 Constipation, unspecified; N20.0 Calculus of kidney; E78.5 Hyperlipidemia, unspecified; E89.0 Postprocedural hypothyroidism; I25.10 Atherosclerotic heart disease of native coronary artery without angina pectoris; J44.9 Chronic obstructive pulmonary disease, unspecified; N18.9 Chronic kidney disease, unspecified; Z88.0 Allergy status to penicillin; Z88.8 Allergy status to other drugs, medicaments and biological substances; Z68.43 Body mass index [BMI] 50.0-59.9, adult; Z95.1 Presence of aortocoronary bypass graft; Z86.73 Personal history of transient ischemic attack (TIA), and cerebral infarction without residual deficits; Z88.1 Allergy status to other antibiotic agents
CPT/HCPCS: 36415; 70450; 71045; 74177; 80048; 80053; 81001; 82962; 83605; 83690; 84484; 85025; 87081; 87086; 93005; 96365; 96366; 96375; 99291; G0378; J0696; J1815; J2405

== ENCOUNTER 2023-04-26 00:28 | Inpatient (IN) | payer MEDICAID ==
[~2023-04-26] VITALS: Ht 160 cm; Wt 98.3 kg
[2023-04-26 02:05] LABS: Basophils # (auto) 0.1 10 ^3/uL (0-0.2); Basophils % (auto) 1.1 % (0.0-2.0); Eosinophils # (auto) 0.1 10 ^3/uL (0-0.8); Eosinophils % (auto) 1.6 % (0.0-7.0); Hematocrit 32.3 % (36.0-46.0); Hemoglobin 10.7 g/dL (12.2-16.2); Lymphocytes # (auto) 1.8 10 ^3/uL (0.4-5.4); Lymphocytes % (auto) 31.5 % (10.0-50.0); Mean Corpuscular Hemoglobin 30.1 pg (28.0-32.0); Mean Corpuscular Volume 91.1 fL (80.0-100.0); Monocytes # (auto) 0.5 10 ^3/uL (0-1.3); Neutrophils # (auto) 3.2 10 ^3/uL (1.6-8.6); Neutrophils % (auto) 56.8 % (37.0-80.0); Nucleated Red Blood Cells % 0.2 %; Red Blood Cells 3.55 10^6/uL (4.0-5.20); Red Cell Distribution Width 15.2 % (11.8-14.3); White Blood Cell 5.7 10^3/uL (4.4-10.8)
[2023-04-26 02:08] LABS: Albumin 3.2 g/dL (3.4-5.0); BUN/Creatinine Ratio 20.6 (10.0-20.0); Calcium 8.9 mg/dL (8.5-10.1); Potassium 3.6 mmol/L (3.5-5.1)
[2023-04-26 02:11] LABS: Bilirubin, Total 0.3 mg/dL (0.2-1.0); Total Protein 7.7 g/dL (6.4-8.2)
[2023-04-26] MEDS ORDERED: DEXTROSE (50%) 50ML SYRG IV PRN (07:15)
[2023-04-26] MEDS ORDERED: ONDANSETRON HCL 4 MG/2 ML VIAL IV PRN (07:15)
[2023-04-26] MEDS ORDERED: ACETAMINOPHEN 325 MG TAB PO PRN (07:15)
[2023-04-26] MEDS ORDERED: MORPHINE SULFATE INJ 2 MG/ml SYRG IV PRN (07:15)
[2023-04-26] MEDS ORDERED: ALBUTEROL SULF 2.5 MG/0.5ML(0.5%) NEB SOLN NEB PRN (07:15)
[2023-04-26] MEDS ORDERED: NITROGLYCERIN 0.4 MG SL TAB SL PRN (07:15)
[2023-04-26 08:01] VITALS: BP 119/55
[2023-04-26 08:19] LABS: Urine Bacteria NONE SEEN /hpf (None Seen); Urine Blood 1+ /uL (Negative); Urine Specific Gravity 1.007 (1.001-1.035); Urine WBC 16 /hpf (0 - 5)
[2023-04-26] MEDS: PANTOPRAZOLE 40 MG TAB PO SCH (10:12)
[2023-04-26] MEDS: levETIRAcetam 500 MG TAB PO SCH ×2 (10:13→21:29)
[2023-04-26] MEDS: RANOLAZINE ER 500 MG TAB PO SCH ×2 (10:13→21:34)
[2023-04-26] MEDS: TOPIRAMATE 25 MG TAB PO SCH ×2 (10:14→21:29)
[2023-04-26] MEDS: LISINOPRIL 5 MG TAB PO SCH (10:14)
[2023-04-26] MEDS: APIXABAN 2.5 MG TAB PO SCH ×2 (10:23→21:29)
[2023-04-26] MEDS: InsuLIN REG 1unit/0.01ml Soln (100units/ml) SC SCH ×3 (11:14→21:36)
[2023-04-26] MEDS: ACCU-CHEK COMFORT CURVE STRIP VI SCH ×3 (11:30→21:28)
[2023-04-26] MEDS ORDERED: VANCOMYCIN PER PHARMACY 0 MG IV SCH (15:45)
[2023-04-26 16:00] VITALS: BP 107/64
[2023-04-26] MEDS ORDERED: VANCOMYCIN 1GM/250ML 250 ML IV ONE (16:00)
[2023-04-26] MEDS: FUROSEMIDE 20 MG/2 ML VIAL IV SCH (17:21)
[2023-04-26] MEDS: HYDROcodone-ACET 5/325MG TAB PO PRN (20:36)
[2023-04-26] MEDS: ATORVASTATIN 20 MG TAB PO SCH (21:30)
[2023-04-26 22:00] VITALS: BP 106/73
[2023-04-26] MEDS ORDERED: PIPERACILLIN-TAZOB 3.375GM 100 ML IV SCH (22:00)
[2023-04-27 05:00] VITALS: BP 102/43
[2023-04-27] MEDS ORDERED: VANCOMYCIN 1GM/250ML 250 ML IV SCH ×2 (05:00→23:00)
[2023-04-27] MEDS: FUROSEMIDE 20 MG/2 ML VIAL IV SCH (05:27)
[2023-04-27] MEDS: ACCU-CHEK COMFORT CURVE STRIP VI SCH ×3 (06:18→18:14)
[2023-04-27] MEDS: InsuLIN REG 1unit/0.01ml Soln (100units/ml) SC SCH ×4 (06:19→22:00)
[2023-04-27 06:22] LABS: Basophils # (auto) 0.1 10 ^3/uL (0-0.2); Basophils % (auto) 0.8 % (0.0-2.0); Eosinophils # (auto) 0.1 10 ^3/uL (0-0.8); Eosinophils % (auto) 1.5 % (0.0-7.0); Hematocrit 32.2 % (36.0-46.0); Hemoglobin 10.9 g/dL (12.2-16.2); Lymphocytes # (auto) 1.4 10 ^3/uL (0.4-5.4); Lymphocytes % (auto) 19.1 % (10.0-50.0); Mean Corpuscular Hemoglobin 30.6 pg (28.0-32.0); Mean Corpuscular Hgb Conc. 33.9 g/dL (32.0-36.0); Mean Corpuscular Volume 90.4 fL (80.0-100.0); Monocytes # (auto) 0.5 10 ^3/uL (0-1.3); Monocytes % (auto) 6.7 % (0.0-12.0); Neutrophils # (auto) 5.4 10 ^3/uL (1.6-8.6); Neutrophils % (auto) 71.9 % (37.0-80.0); Nucleated Red Blood Cells % 0.1 %; Red Blood Cells 3.57 10^6/uL (4.0-5.20); Red Cell Distribution Width 14.9 % (11.8-14.3); White Blood Cell 7.5 10^3/uL (4.4-10.8)
[2023-04-27 06:34] LABS: Albumin 3.3 g/dL (3.4-5.0); Calcium 8.7 mg/dL (8.5-10.1); Potassium 3.2 mmol/L (3.5-5.1)
[2023-04-27 06:40] LABS: BUN/Creatinine Ratio 21.8 (10.0-20.0); Bilirubin, Total 0.6 mg/dL (0.2-1.0); Total Protein 7.2 g/dL (6.4-8.2)
[2023-04-27 09:01] VITALS: BP 96/46
[2023-04-27] MEDS: LISINOPRIL 5 MG TAB PO SCH (10:00)
[2023-04-27] MEDS: RANOLAZINE ER 500 MG TAB PO SCH (10:56)
[2023-04-27] MEDS: PANTOPRAZOLE 40 MG TAB PO SCH (10:56)
[2023-04-27] MEDS: APIXABAN 2.5 MG TAB PO SCH (10:57)
[2023-04-27] MEDS: TOPIRAMATE 25 MG TAB PO SCH (10:57)
[2023-04-27] MEDS: levETIRAcetam 500 MG TAB PO SCH (10:57)
[2023-04-27 12:26] VITALS: BP 110/55
[2023-04-27 17:12] VITALS: BP 110/46
[2023-04-27] MEDS: HYDROcodone-ACET 5/325MG TAB PO PRN (17:27)
[2023-04-27] MEDS: FUROSEMIDE 100 MG/10ML VIAL IV SCH (18:24)
[2023-04-27] MEDS ORDERED: LACTULOSE 20Gm/30ML SOLN PO PRN (19:15)
[2023-04-27 22:00] VITALS: BP 108/49
[2023-04-28] MEDS: TOPIRAMATE 25 MG TAB PO SCH ×3 (00:16→23:23)
[2023-04-28] MEDS: levETIRAcetam 500 MG TAB PO SCH ×3 (00:16→23:23)
[2023-04-28] MEDS: RANOLAZINE ER 500 MG TAB PO SCH ×3 (00:17→23:21)
[2023-04-28] MEDS: ATORVASTATIN 20 MG TAB PO SCH ×2 (00:17→23:23)
[2023-04-28] MEDS: HYDROcodone-ACET 5/325MG TAB PO PRN ×3 (00:18→20:30)
[2023-04-28] MEDS: APIXABAN 2.5 MG TAB PO SCH ×3 (00:18→23:23)
[2023-04-28] MEDS: CARVEDILOL 3.125 MG TAB PO SCH ×3 (00:26→23:24)
[2023-04-28] MEDS: ACCU-CHEK COMFORT CURVE STRIP VI SCH ×4 (00:27→17:20)
[2023-04-28] MEDS: INSULIN LANTUS (GLARGINE) 1 /0.01ml (100units/ml) SC SCH ×2 (01:06→06:21)
[2023-04-28 05:00] VITALS: BP 131/63
[2023-04-28] MEDS: FUROSEMIDE 100 MG/10ML VIAL IV SCH ×2 (06:00→18:00)
[2023-04-28] MEDS: InsuLIN REG 1unit/0.01ml Soln (100units/ml) SC SCH ×3 (06:21→17:00)
[2023-04-28 07:20] LABS: Potassium 3.6 mmol/L (3.5-5.1)
[2023-04-28 07:30] LABS: Calcium 8.5 mg/dL (8.5-10.1)
[2023-04-28 08:40] VITALS: BP 119/64
[2023-04-28] MEDS: CITALOPRAM HYDROBR 20 MG TAB PO SCH (09:19)
[2023-04-28] MEDS: PANTOPRAZOLE 40 MG TAB PO SCH (09:20)
[2023-04-28] MEDS: LISINOPRIL 5 MG TAB PO SCH (09:20)
[2023-04-28 12:50] VITALS: BP 97/54
[2023-04-28] MEDS ORDERED: POTASSIUM CHL 20 Meq TABLET PO ONE (15:30)
[2023-04-28] MEDS ORDERED: INSULIN LANTUS (GLARGINE) 1 /0.01ml (100units/ml) SC SCH (16:15)
[2023-04-28 17:00] VITALS: BP 95/54
[2023-04-28 22:00] VITALS: BP 115/56
[2023-04-29] MEDS ORDERED: MELATONIN 5 MG TAB PO ONE ×2 (00:30→22:15)
[2023-04-29] MEDS: HYDROcodone-ACET 5/325MG TAB PO PRN ×3 (00:55→20:32)
[2023-04-29] MEDS: ACCU-CHEK COMFORT CURVE STRIP VI SCH ×5 (00:56→23:32)
[2023-04-29] MEDS: InsuLIN REG 1unit/0.01ml Soln (100units/ml) SC SCH ×4 (00:58→17:00)
[2023-04-29] MEDS: INSULIN LANTUS (GLARGINE) 1 /0.01ml (100units/ml) SC SCH ×2 (00:59→07:01)
[2023-04-29] MEDS ORDERED: ARIP2TAB PO (04:20)
[2023-04-29] MEDS ORDERED: SILD50TA42 PO (04:30)
[2023-04-29] MEDS ORDERED: LINA290C OR (04:30)
[2023-04-29] MEDS ORDERED: LINE1TAB6 PO (04:30)
[2023-04-29] MEDS ORDERED: VIBE75TA PO (04:30)
[2023-04-29] MEDS ORDERED: METO10TA3 PO (04:30)
[2023-04-29] MEDS ORDERED: CHOL20007 PO (04:30)
[2023-04-29] MEDS ORDERED: POLY335015 PO (04:30)
[2023-04-29] MEDS ORDERED: METO25TA5 PO (04:30)
[2023-04-29] MEDS ORDERED: SPIR25TA8 PO (04:30)
[2023-04-29] MEDS ORDERED: FAMO-12 PO (04:30)
[2023-04-29] MEDS ORDERED: BISA10SU60 PR (04:30)
[2023-04-29 05:00] VITALS: BP 109/53
[2023-04-29] MEDS: FUROSEMIDE 100 MG/10ML VIAL IV SCH ×3 (06:00→18:00)
[2023-04-29 06:36] LABS: Basophils # (auto) 0 10 ^3/uL (0-0.2); Basophils % (auto) 0.7 % (0.0-2.0); Eosinophils # (auto) 0.1 10 ^3/uL (0-0.8); Hematocrit 34.4 % (36.0-46.0); Hemoglobin 11.5 g/dL (12.2-16.2); Mean Corpuscular Hemoglobin 29.7 pg (28.0-32.0); Mean Corpuscular Hgb Conc. 33.3 g/dL (32.0-36.0); Mean Corpuscular Volume 89.1 fL (80.0-100.0); Monocytes # (auto) 0.7 10 ^3/uL (0-1.3); Monocytes % (auto) 9.8 % (0.0-12.0); Neutrophils % (auto) 58.5 % (37.0-80.0); Nucleated Red Blood Cells % 0.2 %; Red Blood Cells 3.86 10^6/uL (4.0-5.20); Red Cell Distribution Width 15.1 % (11.8-14.3); White Blood Cell 6.8 10^3/uL (4.4-10.8)
[2023-04-29 07:39] LABS: Magnesium 2.5 mg/dL (1.6-2.6); Potassium 3.1 mmol/L (3.5-5.1)
[2023-04-29 07:57] LABS: BUN/Creatinine Ratio 25.5 (10.0-20.0)
[2023-04-29] MEDS ORDERED: POTASSIUM CHL 20 Meq TABLET PO ONE (08:15)
[2023-04-29 09:00] VITALS: BP 94/52
[2023-04-29] MEDS: PANTOPRAZOLE 40 MG TAB PO SCH (09:47)
[2023-04-29] MEDS: levETIRAcetam 500 MG TAB PO SCH ×2 (09:47→21:55)
[2023-04-29] MEDS: LISINOPRIL 5 MG TAB PO SCH (09:47)
[2023-04-29] MEDS: APIXABAN 2.5 MG TAB PO SCH ×2 (09:47→21:54)
[2023-04-29] MEDS: TOPIRAMATE 25 MG TAB PO SCH ×2 (09:47→21:54)
[2023-04-29] MEDS: RANOLAZINE ER 500 MG TAB PO SCH ×2 (09:48→21:52)
[2023-04-29] MEDS: CITALOPRAM HYDROBR 20 MG TAB PO SCH (09:48)
[2023-04-29] MEDS: CARVEDILOL 3.125 MG TAB PO SCH ×2 (09:48→21:52)
[2023-04-29 13:00] VITALS: BP 105/57
[2023-04-29 17:00] VITALS: BP 85/54
[2023-04-29] MEDS: LACTULOSE 20Gm/30ML SOLN PO SCH (21:52)
[2023-04-29] MEDS: ATORVASTATIN 20 MG TAB PO SCH (21:54)
[2023-04-29 22:00] VITALS: BP 119/45
[2023-04-30] MEDS: InsuLIN REG 1unit/0.01ml Soln (100units/ml) SC SCH ×5 (00:10→22:00)
[2023-04-30] MEDS: INSULIN LANTUS (GLARGINE) 1 /0.01ml (100units/ml) SC SCH ×3 (00:10→22:00)
[2023-04-30] MEDS: HYDROcodone-ACET 5/325MG TAB PO PRN ×3 (01:39→19:55)
[2023-04-30] MEDS ORDERED: DEXTROSE 10% 250 ML IV ONE (04:56)
[2023-04-30 05:00] VITALS: BP 111/57
[2023-04-30] MEDS: FUROSEMIDE 100 MG/10ML VIAL IV SCH ×2 (05:34→18:04)
[2023-04-30 06:30] LABS: Basophils # (auto) 0 10 ^3/uL (0-0.2); Basophils % (auto) 0.6 % (0.0-2.0); Eosinophils # (auto) 0.1 10 ^3/uL (0-0.8); Eosinophils % (auto) 2.3 % (0.0-7.0); Hemoglobin 11.6 g/dL (12.2-16.2); Lymphocytes # (auto) 2.5 10 ^3/uL (0.4-5.4); Lymphocytes % (auto) 37.4 % (10.0-50.0); Mean Corpuscular Hemoglobin 30.1 pg (28.0-32.0); Mean Corpuscular Hgb Conc. 33.3 g/dL (32.0-36.0); Mean Corpuscular Volume 90.5 fL (80.0-100.0); Monocytes # (auto) 0.9 10 ^3/uL (0-1.3); Neutrophils # (auto) 3.1 10 ^3/uL (1.6-8.6); Neutrophils % (auto) 46.7 % (37.0-80.0); Nucleated Red Blood Cells % 0.1 %; Red Blood Cells 3.86 10^6/uL (4.0-5.20); Red Cell Distribution Width 14.8 % (11.8-14.3); White Blood Cell 6.6 10^3/uL (4.4-10.8)
[2023-04-30] MEDS: ACCU-CHEK COMFORT CURVE STRIP VI SCH ×4 (06:42→22:14)
[2023-04-30 06:57] LABS: BUN/Creatinine Ratio 23.9 (10.0-20.0); Calcium 8.6 mg/dL (8.5-10.1); Magnesium 2.3 mg/dL (1.6-2.6)
[2023-04-30 08:40] VITALS: BP 132/76
[2023-04-30] MEDS: CARVEDILOL 3.125 MG TAB PO SCH ×3 (10:00→23:05)
[2023-04-30] MEDS: CITALOPRAM HYDROBR 20 MG TAB PO SCH (10:49)
[2023-04-30] MEDS: PANTOPRAZOLE 40 MG TAB PO SCH (10:49)
[2023-04-30] MEDS: RANOLAZINE ER 500 MG TAB PO SCH ×3 (10:49→23:01)
[2023-04-30] MEDS: levETIRAcetam 500 MG TAB PO SCH ×3 (10:50→23:01)
[2023-04-30] MEDS: LISINOPRIL 5 MG TAB PO SCH (10:50)
[2023-04-30] MEDS: TOPIRAMATE 25 MG TAB PO SCH ×3 (10:52→23:00)
[2023-04-30] MEDS: APIXABAN 2.5 MG TAB PO SCH ×3 (10:53→23:01)
[2023-04-30] MEDS: LACTULOSE 20Gm/30ML SOLN PO SCH ×2 (10:53→22:00)
[2023-04-30] MEDS ORDERED: VANCOMYCIN 500 MG in D5W 5% 100 ML IV ONE (12:15)
[2023-04-30 12:30] VITALS: BP 129/61
[2023-04-30 14:15] VITALS: BP 129/61
[2023-04-30 14:44] LABS: Hepatitis C Antibody Negative (Negative)
[2023-04-30 14:49] LABS: Urine Bacteria NONE SEEN /hpf (None Seen); Urine Blood TRACE /uL (Negative); Urine Specific Gravity 1.007 (1.001-1.035); Urine WBC 31 /hpf (0 - 5)
[2023-04-30 16:40] VITALS: BP 128/62
[2023-04-30 22:00] VITALS: BP 110/60
[2023-04-30] MEDS: ATORVASTATIN 20 MG TAB PO SCH ×2 (22:00→23:00)
[2023-05-01] MEDS: HYDROcodone-ACET 5/325MG TAB PO PRN (00:49)
[2023-05-01 05:00] VITALS: BP 133/77
[2023-05-01] MEDS: FUROSEMIDE 100 MG/10ML VIAL IV SCH (05:31)
[2023-05-01] MEDS: ACCU-CHEK COMFORT CURVE STRIP VI SCH (05:31)
[2023-05-01 05:58] LABS: Basophils # (auto) 0.1 10 ^3/uL (0-0.2); Basophils % (auto) 0.9 % (0.0-2.0); Eosinophils # (auto) 0.1 10 ^3/uL (0-0.8); Eosinophils % (auto) 2.1 % (0.0-7.0); Hematocrit 38.8 % (36.0-46.0); Hemoglobin 12.6 g/dL (12.2-16.2); Lymphocytes # (auto) 2.1 10 ^3/uL (0.4-5.4); Lymphocytes % (auto) 33.2 % (10.0-50.0); Mean Corpuscular Hemoglobin 29.9 pg (28.0-32.0); Mean Corpuscular Hgb Conc. 32.6 g/dL (32.0-36.0); Mean Corpuscular Volume 91.8 fL (80.0-100.0); Monocytes # (auto) 0.7 10 ^3/uL (0-1.3); Monocytes % (auto) 10.3 % (0.0-12.0); Neutrophils # (auto) 3.4 10 ^3/uL (1.6-8.6); Neutrophils % (auto) 53.5 % (37.0-80.0); Nucleated Red Blood Cells % 0.1 %; Red Blood Cells 4.23 10^6/uL (4.0-5.20); Red Cell Distribution Width 15.2 % (11.8-14.3); White Blood Cell 6.4 10^3/uL (4.4-10.8)
[2023-05-01 06:30] LABS: BUN/Creatinine Ratio 20.2 (10.0-20.0); Calcium 8.9 mg/dL (8.5-10.1); Magnesium 2.8 mg/dL (1.6-2.6); Potassium 3.4 mmol/L (3.5-5.1)
[2023-05-01] MEDS: InsuLIN REG 1unit/0.01ml Soln (100units/ml) SC SCH (06:37)
[2023-05-01] MEDS: INSULIN LANTUS (GLARGINE) 1 /0.01ml (100units/ml) SC SCH (06:40)
== END 2023-05-01 08:15 | disposition home or self-care (01) | DRG 194 ==
LOC: EDBD 00:28 → ER 00:28 → TELE 07:13 → TELE-WESTW 14:03
PROVIDERS: ADMIT Nurse Practitioner; ATTEND Nurse Practitioner Acute Care
PROC: 4B02XTZ Measurement of Cardiac Defibrillator, External Approach (ICD-10-PCS; principal; 2023-04-28)
DX: I13.0 Hypertensive heart and chronic kidney disease with heart failure and stage 1 through stage 4 chronic kidney disease, or unspecified chronic kidney disease (principal); G82.50 Quadriplegia, unspecified; N17.9 Acute kidney failure, unspecified; L03.115 Cellulitis of right lower limb; E11.22 Type 2 diabetes mellitus with diabetic chronic kidney disease; D64.9 Anemia, unspecified; E11.51 Type 2 diabetes mellitus with diabetic peripheral angiopathy without gangrene; E11.65 Type 2 diabetes mellitus with hyperglycemia; I50.43 Acute on chronic combined systolic (congestive) and diastolic (congestive) heart failure; I25.10 Atherosclerotic heart disease of native coronary artery without angina pectoris; N18.9 Chronic kidney disease, unspecified; I25.5 Ischemic cardiomyopathy; E78.5 Hyperlipidemia, unspecified; E89.0 Postprocedural hypothyroidism; G40.909 Epilepsy, unspecified, not intractable, without status epilepticus; L03.116 Cellulitis of left lower limb; Z79.01 Long term (current) use of anticoagulants; Z99.3 Dependence on wheelchair; Z95.1 Presence of aortocoronary bypass graft; Z86.73 Personal history of transient ischemic attack (TIA), and cerebral infarction without residual deficits; Z79.4 Long term (current) use of insulin; Z79.899 Other long term (current) drug therapy; Z80.8 Family history of malignant neoplasm of other organs or systems; Z86.718 Personal history of other venous thrombosis and embolism; Z88.1 Allergy status to other antibiotic agents; Z82.49 Family history of ischemic heart disease and other diseases of the circulatory system; Z83.3 Family history of diabetes mellitus; Z88.0 Allergy status to penicillin; Z88.8 Allergy status to other drugs, medicaments and biological substances; K59.00 Constipation, unspecified
CPT/HCPCS: 36415; 70450; 71045; 71250; 74176; 80048; 80053; 80202; 81001; 82962; 83690; 83735; 83880; 84484; 85025; 86803; 87081; 87086; 87088; 87340; 93005; 93306; G0378; J1815; J7060

== ENCOUNTER 2023-11-26 09:27 | Inpatient (IN) | payer MEDICAID ==
[~2023-11-26] VITALS: Ht 160 cm; Wt 111.4 kg
[~2023-11-26 09:27] MED LIST changes: +ARIP2TAB PO; +BISA10SU60 PR; +CHOL20007 PO; +FAMO-12 PO; +LINA290C OR; +LINE1TAB6 PO; +METO10TA3 PO; +METO25TA5 PO; +POLY335015 PO; +SILD50TA42 PO; +SPIR25TA8 PO; +VIBE75TA PO
[2023-11-26 10:08] LABS: Basophils # (auto) 0.1 10 ^3/uL (0-0.2); Basophils % (auto) 1.1 % (0.0-2.0); Eosinophils # (auto) 0.2 10 ^3/uL (0-0.8); Hematocrit 35.6 % (36.0-46.0); Hemoglobin 11.8 g/dL (12.2-16.2); Lymphocytes # (auto) 2.5 10 ^3/uL (0.4-5.4); Lymphocytes % (auto) 41.5 % (10.0-50.0); Mean Corpuscular Hemoglobin 29.4 pg (28.0-32.0); Mean Corpuscular Hgb Conc. 33.2 g/dL (32.0-36.0); Mean Corpuscular Volume 88.5 fL (80.0-100.0); Monocytes # (auto) 0.5 10 ^3/uL (0-1.3); Monocytes % (auto) 8.1 % (0.0-12.0); Neutrophils # (auto) 2.8 10 ^3/uL (1.6-8.6); Neutrophils % (auto) 46.3 % (37.0-80.0); Nucleated Red Blood Cells % 0.1 %; Red Blood Cells 4.03 10^6/uL (4.0-5.20); Red Cell Distribution Width 15.8 % (11.8-14.3)
[2023-11-26] MEDS: ONDANSETRON HCL 4 MG/2 ML VIAL IV ONE (10:28)
[2023-11-26] MEDS: MORPHINE SULFATE INJ 2 MG/ml SYRG IV ONE (10:28)
[2023-11-26 10:33] LABS: Alanine Aminotransferase 28 U/L (7-40); Albumin 4.2 g/dL (3.2-4.8); Alkaline Phosphatase 19 U/L (46-116); Anion Gap 6 (5-15); Aspartate Aminotransferase 18 U/L (13-40); Calcium 9.7 mg/dL (8.5-10.1); Carbon Dioxide 29 mmol/L (20-30); Chloride 105 mmol/L (98-107); Glucose 148 mg/dL (74-106); Potassium 4.2 mmol/L (3.5-5.1); Sodium 140 mmol/L (136-145)
[2023-11-26 10:34] LABS: Bilirubin, Total 0.6 mg/dL (0.2-1.0); Total Protein 7.3 g/dL (5.7-8.2)
[2023-11-26 11:35] LABS: BUN/Creatinine Ratio 21.4 (10.0-20.0); Blood Urea Nitrogen 27 mg/dL (9-23)
[2023-11-26 11:42] VITALS: PULSE 71; RESP 20; O2SAT 97
[2023-11-26] MEDS ORDERED: DEXTROSE (50%) 50ML SYRG IV PRN (12:30)
[2023-11-26 12:51] LABS: Phosphorus 3.9 mg/dL (2.4-5.1)
[2023-11-26 13:16] LABS: Urine Epithelial Cast None Seen /hpf (<5)
[2023-11-26] MEDS: ATORVASTATIN 20 MG TAB PO ONE (13:19)
[2023-11-26] MEDS: LISINOPRIL 5 MG TAB PO ONE (13:20)
[2023-11-26] MEDS: METOPROLOL SUCCINATE XL 50 MG TAB PO ONE (13:20)
[2023-11-26 13:27] LABS: INR 1.04 (0.9-1.15); Prothrombin Time 10.9 sec (9.3-11.8)
[2023-11-26 13:53] LABS: Urine Bacteria NONE SEEN /hpf (None Seen); Urine Blood 2+ /uL (Negative); Urine Budding Yeast MANY /hpf (None Seen); Urine Clarity Clear (Clear); Urine Color Yellow (Yellow); Urine Protein, UAD Negative (Negative); Urine Specific Gravity 1.009 (1.001-1.035); Urine Urobilinogen Normal (Negative); Urine WBC 31 /hpf (0 - 5)
[2023-11-26] MEDS: MORPHINE SULFATE INJ 2 MG/ml SYRG IV PRN (14:03)
[2023-11-26] MEDS ORDERED: cefTRIAXone 1GM/50ML D5W 50 ML IV ONE (16:30)
[2023-11-26 16:58] LABS: Amphetamine Screen, Urine Neg (NEGATIVE); Barbiturate Scree,Urine Neg (NEGATIVE); Cocaine Screen, Urine Neg (NEGATIVE)
[2023-11-26 16:59] LABS: Benzodiazephine Screen, Urine Neg (NEGATIVE); Cannabinoid Screen, Urine Neg (NEGATIVE); Opiate Scree,Urine Neg (NEGATIVE); Phencyclidine Screen, Urine Neg (NEGATIVE)
[2023-11-26 17:02] LABS: % Iron Saturation 30.7 % (15-50)
[2023-11-26] MEDS: ACCU-CHEK COMFORT CURVE STRIP VI SCH (17:27)
[2023-11-26] MEDS: BUMETANIDE 1 MG TAB PO SCH (17:27)
[2023-11-26] MEDS: InsuLIN REG 1unit/0.01ml Soln (100units/ml) SC SCH (17:33)
[2023-11-26] MEDS: ASPirin 81 mg TAB PO ONE ×2 (19:28→23:02)
[2023-11-26] MEDS ORDERED: IPRATROPIUM BROM 0.5 MG/2.5ML INH SOL NEB PRN (19:45)
[2023-11-26] MEDS ORDERED: ALBUTEROL SULF 2.5 MG/0.5ML(0.5%) NEB SOLN NEB PRN (19:45)
[2023-11-26 19:50] VITALS: PULSE 73; RESP 18; O2SAT 98
[2023-11-26 19:53] VITALS: BP 105/78; PULSE 77; RESP 15; O2SAT 98
[2023-11-26 21:30] VITALS: PULSE 74; RESP 14; O2SAT 98
[2023-11-26] MEDS ORDERED: ASPirin 325 MG TAB PO ONE (22:00)
[2023-11-26] MEDS: TOPIRAMATE 25 MG TAB PO SCH (23:01)
[2023-11-26] MEDS: levETIRAcetam 500 MG TAB PO SCH (23:02)
[2023-11-26] MEDS: traZODone HCL 50 MG TAB PO SCH (23:02)
[2023-11-26] MEDS: ENOXAPARIN SOD 100 MG/1 ML SYRINGE SC SCH (23:03)
[2023-11-26] MEDS: RANOLAZINE ER 500 MG TAB PO SCH (23:46)
[2023-11-26] MEDS: HYDROcodone-ACET 10/325MG TAB PO PRN (23:47)
[2023-11-27] MEDS: cefTRIAXone 1GM/50ML D5W 50 ML IV SCH (00:08)
[2023-11-27] MEDS: PREGABALIN CAPSULE 75 MG CAP PO SCH (00:19)
[2023-11-27] MEDS: INSULIN LANTUS (GLARGINE) 1 /0.01ml (100units/ml) SC SCH ×2 (00:50→06:36)
[2023-11-27 03:38] VITALS: O2SAT 97
[2023-11-27] MEDS: diphenhdrAMINE HCL 25 MG CAP PO ONE (03:47)
[2023-11-27 06:31] VITALS: O2SAT 97
[2023-11-27 06:34] LABS: Basophils # (auto) 0.1 10 ^3/uL (0-0.2); Eosinophils # (auto) 0.1 10 ^3/uL (0-0.8); Eosinophils % (auto) 2.6 % (0.0-7.0); Hematocrit 37.8 % (36.0-46.0); Hemoglobin 12.7 g/dL (12.2-16.2); Lymphocytes # (auto) 2.1 10 ^3/uL (0.4-5.4); Lymphocytes % (auto) 39.3 % (10.0-50.0); Mean Corpuscular Hemoglobin 29.9 pg (28.0-32.0); Mean Corpuscular Hgb Conc. 33.5 g/dL (32.0-36.0); Mean Corpuscular Volume 89.2 fL (80.0-100.0); Monocytes # (auto) 0.4 10 ^3/uL (0-1.3); Monocytes % (auto) 8.5 % (0.0-12.0); Neutrophils # (auto) 2.6 10 ^3/uL (1.6-8.6); Neutrophils % (auto) 48.6 % (37.0-80.0); Red Blood Cells 4.24 10^6/uL (4.0-5.20); Red Cell Distribution Width 15.9 % (11.8-14.3); White Blood Cell 5.3 10^3/uL (4.4-10.8)
[2023-11-27] MEDS: LEVOTHYROXINE SODIUM 112 MCG TAB PO SCH (06:34)
[2023-11-27 06:51] LABS: Alanine Aminotransferase 26 U/L (7-40); Albumin 4.2 g/dL (3.2-4.8); Alkaline Phosphatase 19 U/L (46-116); Anion Gap 8 (5-15); Aspartate Aminotransferase 21 U/L (13-40); BUN/Creatinine Ratio 12.4 (10.0-20.0); Bilirubin, Total 0.5 mg/dL (0.2-1.0); Blood Urea Nitrogen 17 mg/dL (9-23); CRP High Sensitivity 0.46 mg/dL (<1.0); Calcium 9.7 mg/dL (8.5-10.1); Carbon Dioxide 26 mmol/L (20-30); Chloride 106 mmol/L (98-107); Cholesterol 144 mg/dL (< 200); Glucose 89 mg/dL (74-106); HDL Cholesterol 58 mg/dL (40-59); LDL Cholesterol 63 mg/dL (< 100); Potassium 4.2 mmol/L (3.5-5.1); Sodium 140 mmol/L (136-145); Total Protein 7.7 g/dL (5.7-8.2); Triglycerides 90 mg/dL (< 150)
[2023-11-27 07:30] VITALS: PULSE 69; RESP 18; O2SAT 97
[2023-11-27 07:37] LABS: Magnesium 2.1 mg/dL (1.6-2.6)
[2023-11-27 08:06] LABS: % Iron Saturation 20.7 % (15-50)
[2023-11-27] MEDS: D5W/SOD CHLO 0.9% 1,000 ML IV ONE (08:44)
[2023-11-27] MEDS ORDERED: cefTRIAXone 1GM/50ML D5W 50 ML IV SCH (09:00)
[2023-11-27] MEDS: REGADENOSON 0.4 MG/5 ML SYRG IV ONE ×2 (10:05→11:10)
[2023-11-27] MEDS: ASPirin-EC 81 mg tab PO SCH (11:07)
[2023-11-27] MEDS: PANTOPRAZOLE 40 MG TAB PO SCH (11:07)
[2023-11-27] MEDS: SPIRONOLACTONE 25 MG TAB PO SCH (11:08)
[2023-11-27] MEDS: METOPROLOL SUCCINATE XL 50 MG TAB PO SCH (11:09)
[2023-11-27] MEDS: POLYETHYLENE GLYCOL 17 GM PWDR PO SCH (11:09)
[2023-11-27] MEDS: CITALOPRAM HYDROBR 20 MG TAB PO SCH (11:09)
[2023-11-27] MEDS: LISINOPRIL 5 MG TAB PO SCH (11:10)
[2023-11-27] MEDS: ARIPIPRAZOLE 2 MG PO SCH (11:13)
[2023-11-27] MEDS: diphenhdrAMINE HCL 50 MG/1 ML VL IV ONE (12:01)
[2023-11-27 12:20] LABS: Rapid Influenza A Negative (Negative); Rapid Influenza B Negative (Negative)
[2023-11-27 12:21] LABS: COVID19 ANTIGEN SOFIA FIA NEGATIVE (NEGATIVE)
[2023-11-27] MEDS: MEROPENEM 1GM IVPB 50 ML IV SCH (14:19)
[2023-11-27 18:29] VITALS: O2SAT 95
[2023-11-27 19:35] VITALS: PULSE 69; RESP 9; O2SAT 98
[2023-11-28] VITALS (9 sets, daily range): BP systolic 86–110; BP diastolic 34–62; PULSE 65–76; RESP 16–22; TEMP 97.4–98.9; O2SAT 94–99
[2023-11-28 07:30] LABS: Basophils # (auto) 0 10 ^3/uL (0-0.2); Basophils % (auto) 0.8 % (0.0-2.0); Eosinophils # (auto) 0.2 10 ^3/uL (0-0.8); Eosinophils % (auto) 3.2 % (0.0-7.0); Hematocrit 33.6 % (36.0-46.0); Hemoglobin 11.2 g/dL (12.2-16.2); Lymphocytes # (auto) 1.5 10 ^3/uL (0.4-5.4); Lymphocytes % (auto) 27.6 % (10.0-50.0); Mean Corpuscular Hemoglobin 29.9 pg (28.0-32.0); Mean Corpuscular Hgb Conc. 33.2 g/dL (32.0-36.0); Monocytes # (auto) 0.5 10 ^3/uL (0-1.3); Monocytes % (auto) 10.1 % (0.0-12.0); Neutrophils # (auto) 3.1 10 ^3/uL (1.6-8.6); Neutrophils % (auto) 58.3 % (37.0-80.0); Nucleated Red Blood Cells % 0.1 %; Red Blood Cells 3.73 10^6/uL (4.0-5.20); White Blood Cell 5.3 10^3/uL (4.4-10.8)
[2023-11-28 07:41] LABS: Alanine Aminotransferase 21 U/L (7-40); Albumin 3.7 g/dL (3.2-4.8); Alkaline Phosphatase 17 U/L (46-116); Anion Gap 8 (5-15); Aspartate Aminotransferase 15 U/L (13-40); BUN/Creatinine Ratio 12.8 (10.0-20.0); Bilirubin, Total 0.4 mg/dL (0.2-1.0); Blood Urea Nitrogen 23 mg/dL (9-23); Calcium 8.8 mg/dL (8.7-10.4); Carbon Dioxide 27 mmol/L (20-30); Chloride 105 mmol/L (98-107); Glucose 57 mg/dL (74-106); Magnesium 2.1 mg/dL (1.6-2.6); Potassium 4.2 mmol/L (3.5-5.1); Sodium 140 mmol/L (136-145); Total Protein 6.6 g/dL (5.7-8.2)
[2023-11-28] MEDS ORDERED: TRAZ1TAB12 PO (09:42)
[2023-11-28] MEDS ORDERED: CHOL500021 PO (09:50)
[2023-11-28] MEDS: diphenhdrAMINE HCL 50 MG/1 ML VL IV ONE (12:31)
[2023-11-28] MEDS: SODIUM CHLORIDE 0.9% 500 ML IV ONE (16:43)
[2023-11-28] MEDS: MEROPENEM 1GM IVPB 50 ML IV SCH (18:07)
[2023-11-28] MEDS: predniSONE 20 MG TAB PO ONE (18:40)
[2023-11-29] VITALS (10 sets, daily range): BP systolic 79–135; BP diastolic 39–66; PULSE 70–77; RESP 15–20; TEMP 97.9–98.5; O2SAT 91–96
[2023-11-29 06:33] LABS: Basophils # (auto) 0 10 ^3/uL (0-0.2); Basophils % (auto) 0.4 % (0.0-2.0); Eosinophils # (auto) 0 10 ^3/uL (0-0.8); Eosinophils % (auto) 0.1 % (0.0-7.0); Hematocrit 33.2 % (36.0-46.0); Hemoglobin 11.1 g/dL (12.2-16.2); Lymphocytes # (auto) 0.7 10 ^3/uL (0.4-5.4); Lymphocytes % (auto) 9.9 % (10.0-50.0); Mean Corpuscular Hemoglobin 30.2 pg (28.0-32.0); Mean Corpuscular Hgb Conc. 33.5 g/dL (32.0-36.0); Mean Corpuscular Volume 90.3 fL (80.0-100.0); Monocytes # (auto) 0.1 10 ^3/uL (0-1.3); Monocytes % (auto) 1.3 % (0.0-12.0); Neutrophils # (auto) 6.1 10 ^3/uL (1.6-8.6); Neutrophils % (auto) 88.3 % (37.0-80.0); Nucleated Red Blood Cells % 0.2 %; Red Blood Cells 3.68 10^6/uL (4.0-5.20); Red Cell Distribution Width 15.8 % (11.8-14.3); White Blood Cell 6.9 10^3/uL (4.4-10.8)
[2023-11-29 06:45] LABS: Alanine Aminotransferase 21 U/L (7-40); Albumin 3.7 g/dL (3.2-4.8); Alkaline Phosphatase 18 U/L (46-116); Anion Gap 7 (5-15); Aspartate Aminotransferase 11 U/L (13-40); BUN/Creatinine Ratio 15.2 (10.0-20.0); Bilirubin, Total 0.5 mg/dL (0.2-1.0); Blood Urea Nitrogen 29 mg/dL (9-23); Calcium 8.8 mg/dL (8.7-10.4); Carbon Dioxide 26 mmol/L (20-30); Chloride 99 mmol/L (98-107); Glucose 345 mg/dL (74-106); Potassium 5.2 mmol/L (3.5-5.1); Total Protein 6.8 g/dL (5.7-8.2)
[2023-11-29 06:46] LABS: Sodium 132 mmol/L (136-145)
[2023-11-29] MEDS: BUMETANIDE 1 MG TAB PO SCH (07:30)
[2023-11-29] MEDS: INSULIN LANTUS (GLARGINE) 1 /0.01ml (100units/ml) SC ONE (07:30)
[2023-11-29] MEDS: LACTULOSE 20Gm/30ML SOLN PO ONE (08:15)
[2023-11-29] MEDS: SODIUM CHLORIDE 0.9% 1,000 ML IV SCH (09:00)
[2023-11-29] MEDS: Aripiprazole (Abilify) 5 MG PO SCH (09:28)
[2023-11-29] MEDS: SODIUM ZIRCONIUM CYCL 10 GM PAK PO ONE (09:41)
[2023-11-29] MEDS: PREGABALIN CAPSULE 75 MG CAP PO SCH (10:00)
[2023-11-29 10:31] LABS: Urine Epithelial Cast None Seen /hpf (<5)
[2023-11-29 11:11] LABS: Urine Bacteria FEW /hpf (None Seen); Urine Blood Negative /uL (Negative); Urine Budding Yeast FEW /hpf (None Seen); Urine Clarity Clear (Clear); Urine Color Yellow (Yellow); Urine Hyaline Cast FEW /lpf (0 - 2); Urine Protein, UAD Negative (Negative); Urine Specific Gravity 1.012 (1.001-1.035); Urine Urobilinogen Normal (Negative); Urine WBC 11 /hpf (0 - 5); Urine pH 6.5 (5.0-8.0)
[2023-11-29 11:12] LABS: Protein, Urine 19.6 mg/dL (0.0-11.9)
[2023-11-29 11:14] LABS: Creatinine, Urine 50.82 mg/dL (30.0-125.0)
[2023-11-29 11:15] LABS: Creatinine, Urine 50.64 mg/dL (30.0-125.0); Urine Protein/Creatinine Ratio 0.39
[2023-11-29] MEDS: APIXABAN 2.5 MG TAB PO SCH (13:35)
[2023-11-29 17:49] LABS: Protein, Urine 8.6 mg/dL (0.0-11.9)
[2023-11-29 17:52] LABS: Creatinine, Urine 47.23 mg/dL (30.0-125.0); Urine Protein/Creatinine Ratio 0.18
[2023-11-29] MEDS: ONDANSETRON HCL 4 MG/2 ML VIAL IV PRN (21:47)
[2023-11-29] MEDS: InsuLIN REG 1unit/0.01ml Soln (100units/ml) SC SCH (22:00)
[2023-11-30] VITALS (7 sets, daily range): BP systolic 92–139; BP diastolic 38–61; PULSE 62–74; RESP 16–18; TEMP 97.5–98.1; O2SAT 92–100
[2023-11-30] MEDS: InsuLIN REG 1unit/0.01ml Soln (100units/ml) SC SCH (05:49)
[2023-11-30] MEDS: INSULIN LANTUS (GLARGINE) 1 /0.01ml (100units/ml) SC SCH (05:50)
[2023-11-30 06:08] LABS: Basophils # (auto) 0 10 ^3/uL (0-0.2); Basophils % (auto) 0.4 % (0.0-2.0); Eosinophils # (auto) 0 10 ^3/uL (0-0.8); Eosinophils % (auto) 0.1 % (0.0-7.0); Hematocrit 33.2 % (36.0-46.0); Hemoglobin 10.8 g/dL (12.2-16.2); Lymphocytes # (auto) 1.5 10 ^3/uL (0.4-5.4); Lymphocytes % (auto) 19.3 % (10.0-50.0); Mean Corpuscular Hemoglobin 29.9 pg (28.0-32.0); Mean Corpuscular Hgb Conc. 32.6 g/dL (32.0-36.0); Mean Corpuscular Volume 91.5 fL (80.0-100.0); Monocytes # (auto) 0.8 10 ^3/uL (0-1.3); Monocytes % (auto) 10.1 % (0.0-12.0); Neutrophils # (auto) 5.3 10 ^3/uL (1.6-8.6); Neutrophils % (auto) 70.1 % (37.0-80.0); Red Blood Cells 3.63 10^6/uL (4.0-5.20); Red Cell Distribution Width 16.1 % (11.8-14.3); White Blood Cell 7.6 10^3/uL (4.4-10.8)
[2023-11-30 06:22] LABS: Alanine Aminotransferase 20 U/L (7-40); Albumin 3.8 g/dL (3.2-4.8); Alkaline Phosphatase 19 U/L (46-116); Anion Gap 5 (5-15); Aspartate Aminotransferase 9 U/L (13-40); BUN/Creatinine Ratio 18.9 (10.0-20.0); Bilirubin, Total 0.3 mg/dL (0.2-1.0); Blood Urea Nitrogen 38 mg/dL (9-23); Carbon Dioxide 28 mmol/L (20-30); Chloride 99 mmol/L (98-107); Glucose 353 mg/dL (74-106); Magnesium 2.2 mg/dL (1.6-2.6); Potassium 4.9 mmol/L (3.5-5.1); Sodium 132 mmol/L (136-145); Total Protein 6.9 g/dL (5.7-8.2)
[2023-11-30] MEDS ORDERED: INSULIN LANTUS (GLARGINE) 1 /0.01ml (100units/ml) SC SCH (07:00)
[2023-11-30] MEDS ORDERED: PREGABALIN CAPSULE 75 MG CAP PO SCH (10:54)
[2023-11-30] MEDS: FLEET ENEMA(ADULT) 135 ML PR ONE (11:47)
[2023-11-30] MEDS: LACTULOSE 20Gm/30ML SOLN PO ONE (11:47)
[2023-11-30] MEDS: PREGABALIN 25 MG CAP PO SCH (12:03)
[2023-11-30] MEDS: SODIUM CHLORIDE 0.9% 1,000 ML IV SCH (14:30)
[2023-11-30] MEDS: PREGABALIN CAPSULE 75 MG CAP PO SCH (21:31)
[2023-12-01] VITALS (7 sets, daily range): BP systolic 104–132; BP diastolic 44–88; PULSE 60–65; RESP 17–20; TEMP 97.5–97.8; O2SAT 95–97
[2023-12-01 06:55] LABS: Basophils # (auto) 0.1 10 ^3/uL (0-0.2); Basophils % (auto) 0.9 % (0.0-2.0); Eosinophils # (auto) 0.2 10 ^3/uL (0-0.8); Eosinophils % (auto) 3.9 % (0.0-7.0); Hematocrit 31.2 % (36.0-46.0); Hemoglobin 10.1 g/dL (12.2-16.2); Lymphocytes # (auto) 2.3 10 ^3/uL (0.4-5.4); Mean Corpuscular Hemoglobin 29.4 pg (28.0-32.0); Mean Corpuscular Hgb Conc. 32.4 g/dL (32.0-36.0); Monocytes # (auto) 0.6 10 ^3/uL (0-1.3); Monocytes % (auto) 9.6 % (0.0-12.0); Neutrophils # (auto) 2.9 10 ^3/uL (1.6-8.6); Neutrophils % (auto) 47.6 % (37.0-80.0); Nucleated Red Blood Cells % 0.1 %; Red Blood Cells 3.43 10^6/uL (4.0-5.20); Red Cell Distribution Width 16.2 % (11.8-14.3); White Blood Cell 6.2 10^3/uL (4.4-10.8)
[2023-12-01 06:58] LABS: Alanine Aminotransferase 24 U/L (7-40); Albumin 3.4 g/dL (3.2-4.8); Alkaline Phosphatase 16 U/L (46-116); Anion Gap 4 (5-15); Aspartate Aminotransferase 22 U/L (13-40); BUN/Creatinine Ratio 16.5 (10.0-20.0); Bilirubin, Total 0.3 mg/dL (0.2-1.0); Calcium 8.8 mg/dL (8.7-10.4); Carbon Dioxide 26 mmol/L (20-30); Chloride 106 mmol/L (98-107); Glucose 87 mg/dL (74-106); Magnesium 2.2 mg/dL (1.6-2.6); Potassium 4.4 mmol/L (3.5-5.1); Sodium 136 mmol/L (136-145); Total Protein 6.4 g/dL (5.7-8.2)
[2023-12-01 07:01] LABS: Blood Urea Nitrogen 26 mg/dL (9-23)
[2023-12-01] MEDS: NITROGLYCERIN 0.4 MG SL TAB SL PRN (10:00)
[2023-12-01] MEDS: RANOLAZINE ER 500 MG TAB PO SCH (22:12)
[2023-12-02 05:00] VITALS: BP 133/55; PULSE 66; RESP 20; TEMP 98.6; O2SAT 98
[2023-12-02 08:00] VITALS: BP 132/88; PULSE 64; PULSE 67; RESP 17; TEMP 97.5; O2SAT 98
[2023-12-02 09:09] VITALS: BP 145/63; PULSE 68; RESP 18; TEMP 98.6; O2SAT 100
[2023-12-02] MEDS ORDERED: RANO10003 PO (09:44)
[2023-12-02 12:48] VITALS: BP 130/44; PULSE 65; RESP 17; TEMP 98.1; O2SAT 98
[2023-12-02 13:39] LABS: Basophils # (auto) 0.1 10 ^3/uL (0-0.2); Basophils % (auto) 0.9 % (0.0-2.0); Eosinophils # (auto) 0.4 10 ^3/uL (0-0.8); Eosinophils % (auto) 5.3 % (0.0-7.0); Hematocrit 34.8 % (36.0-46.0); Hemoglobin 11.1 g/dL (12.2-16.2); Lymphocytes # (auto) 2.1 10 ^3/uL (0.4-5.4); Mean Corpuscular Hemoglobin 29.1 pg (28.0-32.0); Mean Corpuscular Hgb Conc. 31.9 g/dL (32.0-36.0); Mean Corpuscular Volume 91.4 fL (80.0-100.0); Monocytes # (auto) 0.6 10 ^3/uL (0-1.3); Monocytes % (auto) 9.5 % (0.0-12.0); Neutrophils # (auto) 3.4 10 ^3/uL (1.6-8.6); Neutrophils % (auto) 52.3 % (37.0-80.0); Nucleated Red Blood Cells % 0.1 %; Red Blood Cells 3.81 10^6/uL (4.0-5.20); Red Cell Distribution Width 16.3 % (11.8-14.3); White Blood Cell 6.6 10^3/uL (4.4-10.8)
[2023-12-02 13:54] LABS: Alanine Aminotransferase 36 U/L (7-40); Alkaline Phosphatase 17 U/L (46-116); Anion Gap 7 (5-15); BUN/Creatinine Ratio 26.1 (10.0-20.0); Calcium 9.2 mg/dL (8.5-10.1); Carbon Dioxide 28 mmol/L (20-30); Chloride 104 mmol/L (98-107); Glucose 187 mg/dL (74-106); Potassium 4.3 mmol/L (3.5-5.1); Sodium 139 mmol/L (136-145)
[2023-12-02 13:55] LABS: Albumin 3.8 g/dL (3.2-4.8); Aspartate Aminotransferase 23 U/L (13-40); Bilirubin, Total 0.3 mg/dL (0.2-1.0); Blood Urea Nitrogen 40 mg/dL (9-23); Total Protein 6.5 g/dL (5.7-8.2)
[2023-12-02 14:17] VITALS: BP 130/44; PULSE 65; RESP 17; TEMP 98.1; O2SAT 98
[2023-12-02] MEDS ORDERED: BUMETANIDE 1 MG TAB PO SCH (18:00)
== END 2023-12-02 17:08 | disposition home or self-care (01) | DRG 190 ==
LOC: EDBD 09:27 → ER 09:27 → TELE 12:23 → TELE-CENTR 11-27 22:20
PROVIDERS: ADMIT Internal Medicine Geriatric Medicine; ATTEND Internal Medicine Geriatric Medicine
PROC: 05HB33Z Insertion of Infusion Device into Right Basilic Vein, Percutaneous Approach (ICD-10-PCS; 2023-11-27)
PROC: B54MZZA Ultrasonography of Right Upper Extremity Veins, Guidance (ICD-10-PCS; 2023-11-27)
PROC: 4B02XTZ Measurement of Cardiac Defibrillator, External Approach (ICD-10-PCS; principal; 2023-11-30)
DX: I24.9 Acute ischemic heart disease, unspecified (principal); I21.A1 Myocardial infarction type 2; N17.0 Acute kidney failure with tubular necrosis; D69.6 Thrombocytopenia, unspecified; G82.20 Paraplegia, unspecified; E86.1 Hypovolemia; I13.0 Hypertensive heart and chronic kidney disease with heart failure and stage 1 through stage 4 chronic kidney disease, or unspecified chronic kidney disease; I50.42 Chronic combined systolic (congestive) and diastolic (congestive) heart failure; I48.91 Unspecified atrial fibrillation; D64.9 Anemia, unspecified; I25.110 Atherosclerotic heart disease of native coronary artery with unstable angina pectoris; E03.9 Hypothyroidism, unspecified; E11.22 Type 2 diabetes mellitus with diabetic chronic kidney disease; E66.01 Morbid (severe) obesity due to excess calories; R56.9 Unspecified convulsions; E78.5 Hyperlipidemia, unspecified; N39.0 Urinary tract infection, site not specified; N18.31 Chronic kidney disease, stage 3a; J44.9 Chronic obstructive pulmonary disease, unspecified; Z20.822 Contact with and (suspected) exposure to COVID-19; F41.9 Anxiety disorder, unspecified; K59.00 Constipation, unspecified; E87.5 Hyperkalemia; I25.5 Ischemic cardiomyopathy; F32.A Depression, unspecified; N31.9 Neuromuscular dysfunction of bladder, unspecified; Z88.2 Allergy status to sulfonamides; Z95.1 Presence of aortocoronary bypass graft; Z86.73 Personal history of transient ischemic attack (TIA), and cerebral infarction without residual deficits; Z88.1 Allergy status to other antibiotic agents; Z88.0 Allergy status to penicillin; I25.2 Old myocardial infarction; Z79.899 Other long term (current) drug therapy; Z79.4 Long term (current) use of insulin; Z79.01 Long term (current) use of anticoagulants; Z90.49 Acquired absence of other specified parts of digestive tract; Z95.0 Presence of cardiac pacemaker; Z87.891 Personal history of nicotine dependence; Z82.5 Family history of asthma and other chronic lower respiratory diseases; Z83.3 Family history of diabetes mellitus; Z82.49 Family history of ischemic heart disease and other diseases of the circulatory system; Z80.8 Family history of malignant neoplasm of other organs or systems; Z82.61 Family history of arthritis; Z86.718 Personal history of other venous thrombosis and embolism; Z86.711 Personal history of pulmonary embolism; Z99.3 Dependence on wheelchair; Z68.41 Body mass index [BMI] 40.0-44.9, adult
CPT/HCPCS: 36415; 71045; 74176; 76775; 78452; 80053; 80061; 80307; 81001; 82570; 82962; 83036; 83540; 83550; 83605; 83735; 83880; 83970; 84100; 84156; 84300; 84443; 84484; 85025; 85379; 85610; 86141; 87086; 87088; 87186; 87426; 87804; 93005; 93017; 93306; 96374; 96375; 99291; G0378; J1815; J2185; J2405

== ENCOUNTER 2024-07-08 18:47 | Inpatient (IN) | payer MEDICAID ==
[~2024-07-08] VITALS: Ht 160 cm; Wt 103.0 kg
[~2024-07-08 18:47] MED LIST changes: -CEFD300C2 PO; -CHOL20007 PO; +CHOL500021 PO; -FAMO-12 PO; +LIDO5PAD12 EX; -LIDO5PAD8 EX; -LINA145C OR; -LINA290C OR; -LINE1TAB6 PO; +POTA-36 PO; -POTA10TA51 PO; +RANO10003 PO; -RANO500T2 PO; +SILD50TA PO; -SILD50TA42 PO; -TRAZ-227 PO; +TRAZ1TAB12 PO
[2024-07-08 21:15] LABS: Basophils # (auto) 0.1 10 ^3/uL (0-0.2); Basophils % (auto) 0.8 % (0.0-2.0); Eosinophils # (auto) 0.1 10 ^3/uL (0-0.8); Eosinophils % (auto) 1.4 % (0.0-7.0); Hematocrit 33.5 % (36.0-46.0); Hemoglobin 11.4 g/dL (12.2-16.2); Lymphocytes # (auto) 1.4 10 ^3/uL (0.4-5.4); Lymphocytes % (auto) 20.8 % (10.0-50.0); Mean Corpuscular Hemoglobin 31.3 pg (28.0-32.0); Mean Corpuscular Hgb Conc. 34.1 g/dL (32.0-36.0); Mean Corpuscular Volume 91.8 fL (80.0-100.0); Monocytes # (auto) 0.6 10 ^3/uL (0-1.3); Monocytes % (auto) 9.3 % (0.0-12.0); Neutrophils # (auto) 4.5 10 ^3/uL (1.6-8.6); Neutrophils % (auto) 67.7 % (37.0-80.0); Platelet Count (auto) 134 10^3/uL (140-450); Red Blood Cells 3.65 10^6/uL (4.0-5.20); Red Cell Distribution Width 14.4 % (11.8-14.3); White Blood Cell 6.6 10^3/uL (4.4-10.8)
[2024-07-08 21:28] LABS: Alanine Aminotransferase 27 U/L (7-40); Albumin 3.9 g/dL (3.2-4.8); Alkaline Phosphatase 21 U/L (46-116); Anion Gap 10 (5-15); Aspartate Aminotransferase 16 U/L (13-40); BUN/Creatinine Ratio 26.4 (10.0-20.0); Bilirubin, Total 0.5 mg/dL (0.2-1.0); Blood Urea Nitrogen 53 mg/dL (9-23); Calcium 9.4 mg/dL (8.7-10.4); Carbon Dioxide 23 mmol/L (20-30); Chloride 104 mmol/L (98-107); Glucose 356 mg/dL (74-106); Magnesium 2.1 mg/dL (1.6-2.6); Potassium 4.3 mmol/L (3.5-5.1); Sodium 137 mmol/L (136-145); Total Protein 7.2 g/dL (5.7-8.2)
[2024-07-08 21:37] LABS: CRP High Sensitivity 5.54 mg/dL (<1.0)
[2024-07-08 22:18] LABS: Erythrocyte Sedimentation Rate 44 mm/hr (0-20)
[2024-07-08] MEDS: ASPirin 325 MG TAB PO ONE (22:20)
[2024-07-08 22:31] LABS: Amphetamine Screen, Urine Neg (NEGATIVE); Barbiturate Scree,Urine Neg (NEGATIVE); Benzodiazephine Screen, Urine Neg (NEGATIVE); Cocaine Screen, Urine Neg (NEGATIVE)
[2024-07-08 22:32] LABS: Cannabinoid Screen, Urine Neg (NEGATIVE); Opiate Scree,Urine Pos (NEGATIVE); Phencyclidine Screen, Urine Neg (NEGATIVE)
[2024-07-08 22:37] LABS: Urine Bacteria FEW /hpf (None Seen); Urine Blood Negative /uL (Negative); Urine Budding Yeast MODERATE /hpf (None Seen); Urine Clarity Clear (Clear); Urine Color Yellow (Yellow); Urine Hyaline Cast FEW /lpf (0 - 2); Urine Protein, UAD Negative (Negative); Urine Specific Gravity 1.019 (1.001-1.035); Urine Urobilinogen Normal (Negative); Urine WBC 38 /hpf (0 - 5)
[2024-07-08] MEDS ORDERED: NITROGLYCERIN 0.4 MG SL TAB SL PRN (22:45)
[2024-07-08] MEDS ORDERED: DEXTROSE (50%) 50ML SYRG IV PRN (22:45)
[2024-07-08] MEDS ORDERED: MORPHINE SULFATE INJ 2 MG/ml SYRG IV PRN (22:45)
[2024-07-09 00:27] VITALS: PULSE 65; RESP 14; O2SAT 93
[2024-07-09] MEDS: FUROSEMIDE 40 MG/4 ML VIAL IV ONE (01:51)
[2024-07-09] MEDS: FLEET ENEMA(ADULT) 135 ML PR ONE (01:51)
[2024-07-09] MEDS: FUROSEMIDE 20 MG/2 ML VIAL IV SCH (05:50)
[2024-07-09 06:25] LABS: Chloride 105 mmol/L (98-107); Potassium 3.9 mmol/L (3.5-5.1); Sodium 136 mmol/L (136-145)
[2024-07-09 06:26] LABS: Anion Gap 7 (5-15); Calcium 9.4 mg/dL (8.7-10.4); Carbon Dioxide 24 mmol/L (20-30)
[2024-07-09 06:27] LABS: Basophils # (auto) 0 10 ^3/uL (0-0.2); Basophils % (auto) 0.7 % (0.0-2.0); Eosinophils # (auto) 0.1 10 ^3/uL (0-0.8); Eosinophils % (auto) 1.7 % (0.0-7.0); Hematocrit 33.2 % (36.0-46.0); Hemoglobin 11.3 g/dL (12.2-16.2); Lymphocytes # (auto) 1.4 10 ^3/uL (0.4-5.4); Lymphocytes % (auto) 20.3 % (10.0-50.0); Mean Corpuscular Hemoglobin 31.8 pg (28.0-32.0); Mean Corpuscular Hgb Conc. 34.2 g/dL (32.0-36.0); Mean Corpuscular Volume 93.1 fL (80.0-100.0); Monocytes # (auto) 0.8 10 ^3/uL (0-1.3); Monocytes % (auto) 11.1 % (0.0-12.0); Neutrophils # (auto) 4.5 10 ^3/uL (1.6-8.6); Neutrophils % (auto) 66.2 % (37.0-80.0); Nucleated Red Blood Cells % 0.1 %; Platelet Count (auto) 134 10^3/uL (140-450); Red Blood Cells 3.56 10^6/uL (4.0-5.20); Red Cell Distribution Width 14.3 % (11.8-14.3); White Blood Cell 6.9 10^3/uL (4.4-10.8)
[2024-07-09 06:31] LABS: BUN/Creatinine Ratio 19.6 (10.0-20.0); Glucose 392 mg/dL (74-106)
[2024-07-09 06:35] LABS: Blood Urea Nitrogen 38 mg/dL (9-23)
[2024-07-09] MEDS: ACCU-CHEK COMFORT CURVE STRIP VI SCH (06:54)
[2024-07-09] MEDS: InsuLIN REG 1unit/0.01ml Soln (100units/ml) SC SCH (07:00)
[2024-07-09] MEDS: levETIRAcetam 500 MG TAB PO SCH (10:50)
[2024-07-09] MEDS: ASPirin 81 mg TAB PO SCH (10:50)
[2024-07-09] MEDS: DOCUSATE SOD 100 MG CAP PO SCH (10:50)
[2024-07-09] MEDS: RANOLAZINE ER 500 MG TAB PO SCH (10:51)
[2024-07-09] MEDS: HEPARIN SODIUM (PORCINE) 5000 UNITS/ML 1ML VIAL SC SCH (10:53)
[2024-07-09] MEDS: CARVEDILOL 3.125 MG TAB PO SCH (10:54)
[2024-07-09 16:34] LABS: Protein, Urine 17.2 mg/dL (0.0-11.9)
[2024-07-09 16:36] LABS: Creatinine, Urine 27.03 mg/dL (30.0-125.0); Urine Protein/Creatinine Ratio 0.64
[2024-07-09 18:12] VITALS: PULSE 62; RESP 16; O2SAT 99
[2024-07-09 18:13] VITALS: BP 115/52; PULSE 63; RESP 16; TEMP 97.6; O2SAT 99
[2024-07-09 18:15] VITALS: BP 115/52; PULSE 63; RESP 16; TEMP 97.8; O2SAT 99
[2024-07-09 20:00] VITALS: PULSE 64
[2024-07-09 21:00] VITALS: BP 115/63; PULSE 68; RESP 17; TEMP 97.4; O2SAT 98
[2024-07-09] MEDS: ATORVASTATIN 20 MG TAB PO SCH (21:18)
[2024-07-10] VITALS (8 sets, daily range): BP systolic 111–145; BP diastolic 48–69; PULSE 59–78; RESP 15–18; TEMP 97.5–98.9; O2SAT 95–98
[2024-07-10] MEDS: ACCU-CHEK COMFORT CURVE STRIP VI SCH (00:21)
[2024-07-10] MEDS: InsuLIN REG 1unit/0.01ml Soln (100units/ml) SC SCH (00:23)
[2024-07-10] MEDS: HYDROcodone-ACET 5/325MG TAB PO PRN (02:24)
[2024-07-10] MEDS: DEXTROSE (50%) 50ML SYRG IV PRN (07:39)
[2024-07-10 10:25] LABS: Basophils # (auto) 0 10 ^3/uL (0-0.2); Basophils % (auto) 0.4 % (0.0-2.0); Eosinophils # (auto) 0.1 10 ^3/uL (0-0.8); Hematocrit 33.2 % (36.0-46.0); Hemoglobin 11.5 g/dL (12.2-16.2); Lymphocytes # (auto) 1.4 10 ^3/uL (0.4-5.4); Lymphocytes % (auto) 21.4 % (10.0-50.0); Mean Corpuscular Hemoglobin 31.7 pg (28.0-32.0); Mean Corpuscular Hgb Conc. 34.6 g/dL (32.0-36.0); Mean Corpuscular Volume 91.7 fL (80.0-100.0); Monocytes # (auto) 0.8 10 ^3/uL (0-1.3); Monocytes % (auto) 12.3 % (0.0-12.0); Neutrophils # (auto) 4.1 10 ^3/uL (1.6-8.6); Neutrophils % (auto) 63.9 % (37.0-80.0); Nucleated Red Blood Cells % 0.1 %; Platelet Count (auto) 146 10^3/uL (140-450); Red Blood Cells 3.62 10^6/uL (4.0-5.20); Red Cell Distribution Width 14.4 % (11.8-14.3); White Blood Cell 6.5 10^3/uL (4.4-10.8)
[2024-07-10 10:28] LABS: Anion Gap 6 (5-15); Carbon Dioxide 29 mmol/L (20-30); Chloride 101 mmol/L (98-107); Potassium 3.5 mmol/L (3.5-5.1); Sodium 136 mmol/L (136-145)
[2024-07-10 10:29] LABS: Calcium 9.4 mg/dL (8.7-10.4)
[2024-07-10 10:33] LABS: Glucose 171 mg/dL (74-106)
[2024-07-10 10:34] LABS: BUN/Creatinine Ratio 25.3 (10.0-20.0); Blood Urea Nitrogen 45 mg/dL (9-23)
[2024-07-10] MEDS: LACTULOSE 20Gm/30ML SOLN PO SCH (12:12)
[2024-07-10] MEDS: ONDANSETRON HCL 4 MG/2 ML VIAL IV PRN (22:22)
[2024-07-11] VITALS (8 sets, daily range): BP systolic 108–135; BP diastolic 58–75; PULSE 56–68; RESP 15–18; TEMP 97.2–98.9; O2SAT 91–99
[2024-07-11] MEDS: ACCU-CHEK COMFORT CURVE STRIP VI SCH ×2 (00:27→13:03)
[2024-07-11] MEDS: InsuLIN REG 1unit/0.01ml Soln (100units/ml) SC SCH ×2 (00:33→12:11)
[2024-07-11 10:47] LABS: Chloride 103 mmol/L (98-107); Potassium 3.3 mmol/L (3.5-5.1); Sodium 138 mmol/L (136-145)
[2024-07-11 10:48] LABS: Anion Gap 7 (5-15); Calcium 9.6 mg/dL (8.7-10.4); Carbon Dioxide 28 mmol/L (20-30)
[2024-07-11 10:53] LABS: BUN/Creatinine Ratio 24.7 (10.0-20.0); Blood Urea Nitrogen 41 mg/dL (9-23); Glucose 224 mg/dL (74-106)
[2024-07-11] MEDS ORDERED: NITR-52 PO (16:20)
[2024-07-11] MEDS: LORazepam 2MG/ML-1ML VIAL IV ONE (16:30)
[2024-07-11] MEDS: INSULIN LANTUS (GLARGINE) 1 /0.01ml (100units/ml) SC SCH (21:42)
[2024-07-12] VITALS (8 sets, daily range): BP systolic 113–150; BP diastolic 60–88; PULSE 63–75; RESP 16–20; TEMP 97.6–97.9; O2SAT 92–100
[2024-07-12] MEDS: ACETAMINOPHEN 325 MG TAB PO PRN (02:54)
[2024-07-12 10:29] LABS: Anion Gap 8 (5-15); Calcium 9.5 mg/dL (8.7-10.4); Carbon Dioxide 30 mmol/L (20-30); Chloride 102 mmol/L (98-107); Potassium 3.3 mmol/L (3.5-5.1); Sodium 140 mmol/L (136-145)
[2024-07-12 10:35] LABS: BUN/Creatinine Ratio 26.4 (10.0-20.0); Blood Urea Nitrogen 39 mg/dL (9-23); Glucose 281 mg/dL (74-106)
[2024-07-12] MEDS: POTASSIUM EFFERVESENT TAB 25 MEQ PO ONE (10:41)
[2024-07-12] MEDS ORDERED: MEROPENEM 1GM IVPB 50 ML IV ONE (16:00)
[2024-07-12] MEDS: MEROPENEM 1GM IVPB 50 ML IV ONE (16:00)
[2024-07-12 16:57] LABS: Urine Bacteria FEW /hpf (None Seen); Urine Blood Negative /uL (Negative); Urine Budding Yeast MANY /hpf (None Seen); Urine Clarity Turbid (Clear); Urine Color Yellow (Yellow); Urine Hyaline Cast FEW /lpf (0 - 2); Urine Protein, UAD TRACE (Negative); Urine Urobilinogen Normal (Negative); Urine WBC 188 /hpf (0 - 5); Urine pH 5.5 (5.0-9.0)
[2024-07-12] MEDS: POLYETHYLENE GLYCOL 17 GM PWDR PO PRN (20:53)
[2024-07-12] MEDS: SENNA 8.6 MG TAB PO SCH (21:27)
[2024-07-12] MEDS: DOCUSATE SOD 100 MG CAP PO SCH (21:27)
[2024-07-12] MEDS: FLEET ENEMA(ADULT) 135 ML PR ONE (23:22)
[2024-07-12] MEDS: MEROPENEM 1GM IVPB 50 ML IV SCH (23:41)
[2024-07-13] VITALS (9 sets, daily range): BP systolic 112–147; BP diastolic 50–74; PULSE 66–71; RESP 15–20; TEMP 97.5–98; O2SAT 94–99
[2024-07-13 22:13] LABS: Chloride 99 mmol/L (98-107); Potassium 4.3 mmol/L (3.5-5.1); Sodium 137 mmol/L (136-145)
[2024-07-13 22:15] LABS: Anion Gap 10 (5-15); Calcium 9.7 mg/dL (8.7-10.4); Carbon Dioxide 28 mmol/L (20-30)
[2024-07-13 22:20] LABS: BUN/Creatinine Ratio 22.6 (10.0-20.0); Blood Urea Nitrogen 33 mg/dL (9-23); Glucose 157 mg/dL (74-106)
[2024-07-13] MEDS: traZODone HCL 50 MG TAB PO ONE (23:49)
[2024-07-14] VITALS (7 sets, daily range): BP systolic 108–142; BP diastolic 57–75; PULSE 67–75; RESP 15–20; TEMP 97.2–98.3; O2SAT 96–100
[2024-07-14 12:19] LABS: Hematocrit 36.3 % (36.0-46.0); Hemoglobin 12.3 g/dL (12.2-16.2); Mean Corpuscular Hemoglobin 31.5 pg (28.0-32.0); Mean Corpuscular Hgb Conc. 33.8 g/dL (32.0-36.0); Mean Corpuscular Volume 93.2 fL (80.0-100.0); Platelet Count (auto) 188 10^3/uL (140-450); Red Cell Distribution Width 14.6 % (11.8-14.3); White Blood Cell 6.7 10^3/uL (4.4-10.8)
[2024-07-14 12:23] LABS: Chloride 102 mmol/L (98-107); Potassium 4.1 mmol/L (3.5-5.1); Sodium 136 mmol/L (136-145)
[2024-07-14 12:24] LABS: Anion Gap 4 (5-15); Basophils % (manual) 0 (0.0-2.0); Blast Cells 0; Calcium 9.6 mg/dL (8.7-10.4); Carbon Dioxide 30 mmol/L (20-30); Myelocytes % 0; Promyelocytes % 0; Reactive Lymphocytes 0
[2024-07-14 12:29] LABS: BUN/Creatinine Ratio 16.9 (10.0-20.0); Blood Urea Nitrogen 24 mg/dL (9-23); Glucose 250 mg/dL (74-106)
[2024-07-14 12:50] LABS: Band Neutrophils % (manual) 3; Eosinophils % (manual) 3 (0-7); Lymphocytes % (manual) 23 (10.0-50.0); Metamyelocytes % 1; Monocytes % (manual) 9 (0-12); Platelet Estimate Adequate; RBC Morphology Normal
[2024-07-14] MEDS: traZODone HCL 50 MG TAB PO SCH (22:03)
[2024-07-15] VITALS (8 sets, daily range): BP systolic 100–146; BP diastolic 58–75; PULSE 72–89; RESP 15–17; TEMP 93.2–98.4; O2SAT 95–100
[2024-07-15 07:25] LABS: Chloride 104 mmol/L (98-107); Potassium 3.7 mmol/L (3.5-5.1); Sodium 139 mmol/L (136-145)
[2024-07-15 07:26] LABS: Calcium 9.7 mg/dL (8.7-10.4)
[2024-07-15 07:31] LABS: BUN/Creatinine Ratio 16.3 (10.0-20.0); Blood Urea Nitrogen 22 mg/dL (9-23); Glucose 155 mg/dL (74-106)
[2024-07-15 08:12] LABS: Anion Gap 5 (5-15); Carbon Dioxide 30 mmol/L (20-30)
[2024-07-16] VITALS (8 sets, daily range): BP systolic 116–148; BP diastolic 42–83; PULSE 71–86; RESP 14–20; TEMP 97.4–98.5; O2SAT 96–99
[2024-07-16] MEDS: POLYETHYLENE GLYCOL 17 GM PWDR PO ONE (10:45)
[2024-07-17] VITALS (10 sets, daily range): BP systolic 110–155; BP diastolic 54–75; PULSE 71–96; RESP 16–20; TEMP 97.6–98.6; O2SAT 96–100
[2024-07-17] MEDS: POLYETHYLENE GLYCOL 17 GM PWDR PO SCH (09:27)
[2024-07-18] VITALS (7 sets, daily range): BP systolic 116–141; BP diastolic 58–82; PULSE 57–78; RESP 16–18; TEMP 98.2–98.9; O2SAT 95–98
[2024-07-19] VITALS (8 sets, daily range): BP systolic 108–141; BP diastolic 54–70; PULSE 68–83; RESP 16–20; TEMP 97.7–98.8; O2SAT 95–100
[2024-07-19 06:39] LABS: Basophils # (auto) 0 10 ^3/uL (0-0.2); Basophils % (auto) 0.7 % (0.0-2.0); Eosinophils # (auto) 0.2 10 ^3/uL (0-0.8); Eosinophils % (auto) 3.1 % (0.0-7.0); Hematocrit 36.1 % (36.0-46.0); Hemoglobin 12.3 g/dL (12.2-16.2); Lymphocytes % (auto) 30.7 % (10.0-50.0); Mean Corpuscular Hemoglobin 31.5 pg (28.0-32.0); Mean Corpuscular Hgb Conc. 34.2 g/dL (32.0-36.0); Mean Corpuscular Volume 92.3 fL (80.0-100.0); Monocytes # (auto) 0.5 10 ^3/uL (0-1.3); Monocytes % (auto) 8.1 % (0.0-12.0); Neutrophils # (auto) 3.8 10 ^3/uL (1.6-8.6); Neutrophils % (auto) 57.4 % (37.0-80.0); Nucleated Red Blood Cells % 0.3 %; Platelet Count (auto) 202 10^3/uL (140-450); Red Blood Cells 3.91 10^6/uL (4.0-5.20); Red Cell Distribution Width 14.4 % (11.8-14.3); White Blood Cell 6.7 10^3/uL (4.4-10.8)
[2024-07-19 06:51] LABS: Chloride 98 mmol/L (98-107)
[2024-07-19 06:52] LABS: Anion Gap 10 (5-15); Calcium 9.5 mg/dL (8.7-10.4); Carbon Dioxide 26 mmol/L (20-30)
[2024-07-19 06:56] LABS: Sodium 134 mmol/L (136-145)
[2024-07-19 06:57] LABS: BUN/Creatinine Ratio 15.8 (10.0-20.0); Blood Urea Nitrogen 22 mg/dL (9-23); Glucose 274 mg/dL (74-106); Magnesium 2.1 mg/dL (1.6-2.6)
[2024-07-20] VITALS (8 sets, daily range): BP systolic 113–142; BP diastolic 46–71; PULSE 64–79; RESP 18–20; TEMP 97.8–98.8; O2SAT 97–100
[2024-07-20] MEDS: DEXTROSE (50%) 50ML SYRG IV PRN (03:13)
[2024-07-21] VITALS (8 sets, daily range): BP systolic 116–147; BP diastolic 50–78; PULSE 68–77; RESP 15–18; TEMP 98.2–98.9; O2SAT 96–98
[2024-07-21] MEDS: LIDOCAINE 5% TOPICAL PATCH TOP ONE (00:28)
[2024-07-21] MEDS ORDERED: LIDOCAINE 5% TOPICAL PATCH TOP SCH (10:00)
[2024-07-21] MEDS ORDERED: NYSTATIN TOPICAL POWDER 15GM TOP ONE (14:45)
[2024-07-21] MEDS: LIDOCAINE 5% TOPICAL PATCH TOP SCH (16:08)
[2024-07-21] MEDS ORDERED: NYSTATIN TOPICAL POWDER 15GM TOP SCH (22:00)
[2024-07-22] VITALS (7 sets, daily range): BP systolic 132–151; BP diastolic 47–69; PULSE 71–82; RESP 15–17; TEMP 97.4–98.3; O2SAT 92–99
[2024-07-22] MEDS: LIDOCAINE HCL 5 % TOP OINT 35 GM TOP PRN (17:42)
[2024-07-22] MEDS: INSULIN LANTUS (GLARGINE) 1 /0.01ml (100units/ml) SC SCH (21:27)
[2024-07-23 05:00] VITALS: BP 137/60; PULSE 77; RESP 18; TEMP 97.8; O2SAT 97
[2024-07-23 08:00] VITALS: PULSE 77
[2024-07-23 09:12] VITALS: BP 136/67; PULSE 84; RESP 18; TEMP 98.4; O2SAT 94
[2024-07-23 13:00] VITALS: BP 115/61; PULSE 74; RESP 18; TEMP 98.3; O2SAT 96
== END 2024-07-23 16:00 | disposition home health service (06) | DRG 247 ==
LOC: EDBD 18:47 → ER 18:47 → TELE 22:48 → TELE-EAST 22:48
PROVIDERS: ADMIT Nurse Practitioner; ATTEND Internal Medicine Geriatric Medicine
PROC: 4B02XTZ Measurement of Cardiac Defibrillator, External Approach (ICD-10-PCS; principal; 2024-07-15)
DX: K56.41 Fecal impaction (principal); I50.23 Acute on chronic systolic (congestive) heart failure; N17.9 Acute kidney failure, unspecified; I27.20 Pulmonary hypertension, unspecified; I13.0 Hypertensive heart and chronic kidney disease with heart failure and stage 1 through stage 4 chronic kidney disease, or unspecified chronic kidney disease; E11.22 Type 2 diabetes mellitus with diabetic chronic kidney disease; N31.2 Flaccid neuropathic bladder, not elsewhere classified; N39.0 Urinary tract infection, site not specified; E66.01 Morbid (severe) obesity due to excess calories; G40.909 Epilepsy, unspecified, not intractable, without status epilepticus; N18.32 Chronic kidney disease, stage 3b; E66.9 Obesity, unspecified; E78.5 Hyperlipidemia, unspecified; G47.00 Insomnia, unspecified; I25.10 Atherosclerotic heart disease of native coronary artery without angina pectoris; I25.5 Ischemic cardiomyopathy; E03.9 Hypothyroidism, unspecified; J44.9 Chronic obstructive pulmonary disease, unspecified; N20.0 Calculus of kidney; G89.29 Other chronic pain; Z95.1 Presence of aortocoronary bypass graft; Z74.01 Bed confinement status; Z68.41 Body mass index [BMI] 40.0-44.9, adult; Z88.6 Allergy status to analgesic agent; Z88.1 Allergy status to other antibiotic agents; Z88.0 Allergy status to penicillin; Z88.8 Allergy status to other drugs, medicaments and biological substances; Z79.899 Other long term (current) drug therapy; Z79.1 Long term (current) use of non-steroidal anti-inflammatories (NSAID); Z79.82 Long term (current) use of aspirin; Z83.6 Family history of other diseases of the respiratory system; Z83.3 Family history of diabetes mellitus
CPT/HCPCS: 36415; 70450; 70551; 71045; 74176; 76775; 80048; 80053; 80307; 81001; 82043; 82140; 82306; 82570; 82962; 83605; 83735; 83880; 83970; 84100; 84156; 84300; 84484; 85007; 85025; 85027; 85652; 86141; 87086; 87088; 93306; 97163; 99291; G0378; J1815; J2185; J2405